=== PATIENT | male | born 1950 | race Caucasian/White ===

== ENCOUNTER → 2016-07-24 | Outpatient (CLI) | payer OTHER ==
[~2016-07-24] MED LIST: DOCU-30 PO; EMPA1TAB5 PO; EXEN2VIA SQ; FERR325T20 PO; INSU100I18 SQ-INSULIN; INSU100I28 SQ-INSULIN; INSU100V8 SQ; LISI-170 PO; LOVA40TA2 PO; METF10002 PO; METF500T PO; MICO14CR TP; ONDA-39 PO; OXYC5SOL8 PO; PIOG15TA9 PO; PIOG30TA4 PO; POLY17PO5 PO; POTA20PA8 PO; [UNRECOGNIZED DRUG - REMARK] SQ
[2016-07-24 11:05] LABS: BLOOD UREA NITROGEN 19 mg/dL (7-18)
[2016-07-24 11:12] LABS: ASPARTATE AMINO TRANSFERASE 13 U/L (15-37)
[2016-07-25 10:06] LABS: CREATININE URINE 47.3 mg/dL (Not Estab.)
== END | disposition home or self-care (01) ==
LOC: LAB 08:45
PROVIDERS: ATTEND Nurse Practitioner
DX: E11.43 Type 2 diabetes mellitus with diabetic autonomic (poly)neuropathy (principal); E13.65 Other specified diabetes mellitus with hyperglycemia; I10 Essential (primary) hypertension; R73.09 Other abnormal glucose
CPT/HCPCS: 36415; 80053; 80061; 82043; 82570; 83036

== ENCOUNTER 2017-03-24 16:20 | Emergency (ER) | payer OTHER ==
[~2017-03-24] VITALS: Ht 190.5 cm; Wt 91.0 kg
[~2017-03-24 16:20] MED LIST changes: +DOCU-131 PO; -DOCU-30 PO; +FERR325T18 PO; -FERR325T20 PO; -ONDA-39 PO; +ONDA4TAB12 PO; +PIOG15TA22 PO; -PIOG15TA9 PO; +POTA20PA25 PO; -POTA20PA8 PO
[2017-03-24] MEDS ORDERED: LIDOCAINE-MPF 2% ,5ML ONE ×2 (16:43→16:50)
[2017-03-24] MEDS ORDERED: ONDANSETRON 2MG/ML, 2ML ONE (16:44)
[2017-03-24] MEDS ORDERED: morphine SULFATE 10 MG/ML, 1ML ONE ×2 (16:44→17:05)
[2017-03-24] MEDS ORDERED: SODIUM CHLORIDE FLUSH 10ML SYR IVF ONE (17:00)
[2017-03-24] MEDS ORDERED: MORPHINE SULFATE 4 MG/ML, 1ML IV PRN (17:00)
[2017-03-24] MEDS ORDERED: LIDOCAINE 2%, 20ML SQ ONE (17:00)
[2017-03-24] MEDS ORDERED: ONDANSETRON 2MG/ML, 2ML IVPush ONE (17:00)
[2017-03-24 19:19] VITALS: BP 119/58
== END 2017-03-24 19:21 | disposition home or self-care (01) ==
LOC: ED 17:34
DX: S52.571A Other intraarticular fracture of lower end of right radius, initial encounter for closed fracture (principal); S52.601A Unspecified fracture of lower end of right ulna, initial encounter for closed fracture; E11.40 Type 2 diabetes mellitus with diabetic neuropathy, unspecified; E11.51 Type 2 diabetes mellitus with diabetic peripheral angiopathy without gangrene; E78.5 Hyperlipidemia, unspecified; W01.0XXA Fall on same level from slipping, tripping and stumbling without subsequent striking against object, initial encounter; Y93.89 Activity, other specified; Y92.89 Other specified places as the place of occurrence of the external cause; Y99.8 Other external cause status
CPT/HCPCS: 73110; 96374; 96375; 99284; J2405

== ENCOUNTER 2017-05-07 16:21 | Inpatient (IN) | payer OTHER ==
[~2017-05-07] VITALS: Ht 193 cm; Wt 92.0 kg
[~2017-05-07 16:21] MED LIST changes: -ASPI-515 PO; -INSU100I11 SC; -INSU200I4 SC
[2017-05-07] MEDS ORDERED: ACETAMINOPHEN 325 MG TABLET PO PRN (19:00)
[2017-05-07] MEDS ORDERED: TEMAZEPAM 15 MG CAPSULE PO PRN (19:00)
[2017-05-07] MEDS ORDERED: DOCUSATE 100 MG CAPSULE PO PRN (19:00)
[2017-05-07] MEDS ORDERED: ONDANSETRON 2MG/ML, 2ML IVPush PRN (19:00)
[2017-05-07] MEDS ORDERED: PLEASE ENTER HEIGHT AND WEIGHT MC SCH ×2 (19:00→19:30)
[2017-05-07] MEDS ORDERED: hydrALAzine 20 MG/ML, 1ML IVPush PRN (19:00)
[2017-05-07] MEDS ORDERED: VANCOMYCIN PER PHARMACY MC PRN (19:30)
[2017-05-07 19:54] LABS: INTERNATIONAL NORMALIZED RATIO 0.97 (0.93-1.1); PROTHROMBIN TIME 10.1 Seconds (9.6-11.5)
[2017-05-07 20:13] VITALS: BP 123/66
[2017-05-07] MEDS ORDERED: ASPI-515 PO (20:20)
[2017-05-07] MEDS ORDERED: EMPA1TAB5 PO (20:20)
[2017-05-07] MEDS ORDERED: PIOG15TA22 PO (20:20)
[2017-05-07] MEDS ORDERED: INSU100I11 SC (20:20)
[2017-05-07] MEDS ORDERED: INSU200I4 SC (20:20)
[2017-05-07] MEDS ORDERED: PHARMACOKINETIC CONSULTATION MC ONE (20:30)
[2017-05-07] MEDS ORDERED: PHARMACOKINETIC MONITORING MC PRN (20:30)
[2017-05-07] MEDS: PIPERACILLIN/TAZO/PMX 3.375GM 50 ML IV SCH (21:56)
[2017-05-07] MEDS: METFORMIN HCL HOMEMEDPO SCH (21:58)
[2017-05-07] MEDS: EMPAGLIFLOZIN HOMEMEDPO SCH (21:58)
[2017-05-07] MEDS ORDERED: INSULIN ASPART 100 UNITS/ML, PEN SQ-INSULIN SCH (22:00)
[2017-05-07] MEDS: INSULIN ASPART 100 UNITS/ML, PEN SQ-INSULIN SCH (22:27)
[2017-05-07] MEDS: VANCOMYCIN 1,800 MG in SODIUM CHLORIDE 0.9% 250 ML IV SCH (22:47)
[2017-05-07] MEDS: LOVASTATIN 40 MG TABLET PO SCH (22:47)
[2017-05-08 03:02] VITALS: BP 117/67
[2017-05-08] MEDS: PIPERACILLIN/TAZO/PMX 3.375GM 50 ML IV SCH ×4 (04:03→21:35)
[2017-05-08 05:33] LABS: BASOPHILS # (AUTO) 0.07 x10^3/uL (0-0.1); BASOPHILS % (AUTO) 1 % (0-1); EOSINOPHILS # (AUTO) 0.32 x10^3/uL (0-0.4); EOSINOPHILS % (AUTO) 3 % (1-7); LYMPHOCYTES # (AUTO) 3.28 x10^3/uL (1-3.4); LYMPHOCYTES % (AUTO) 30 % (22-44); MD NO; MEAN CORPUSCULAR HEMOGLOBIN 30.3 pg (27.5-34.5); MEAN CORPUSCULAR HGB CONC 33.6 g/dL (33.2-36.2); MEAN CORPUSCULAR VOLUME 90.1 fL (81-97); MEAN PLATELET VOLUME 8.6 fL (7.4-10.4); MONOCYTES # (AUTO) 1.35 x10^3/uL (0.2-0.8); MONOCYTES % (AUTO) 13 % (2-9); NEUTROPHILS # (AUTO) 5.82 x10^3/uL (1.8-6.8); NEUTROPHILS % (AUTO) 54 % (42-75); PLATELET COUNT 453 x10^3/uL (130-400); RED BLOOD COUNT 4.63 x10^6/uL (4.38-5.82); RED CELL DISTRIBUTION WIDTH 13.7 % (9.4-14.8)
[2017-05-08 05:40] LABS: ANION GAP 10 mmol/L (5-15); CALCIUM 8.3 mg/dL (8.5-10.1); CHLORIDE 107 mmol/L (98-107); CREATININE 0.96 mg/dL (0.7-1.3)
[2017-05-08] MEDS: INSULIN ASPART 100 UNITS/ML, PEN SQ-INSULIN SCH ×4 (06:23→21:35)
[2017-05-08] MEDS: EMPAGLIFLOZIN HOMEMEDPO SCH (08:12)
[2017-05-08] MEDS: METFORMIN HCL HOMEMEDPO SCH (08:12)
[2017-05-08] MEDS: ASPIRIN 81 MG TABLET EC PO SCH (08:13)
[2017-05-08] MEDS ORDERED: PIOGLITAZONE 15 MG TABLET PO SCH (09:00)
[2017-05-08 10:41] VITALS: BP 102/57
[2017-05-08 14:25] VITALS: BP 110/56
[2017-05-08] MEDS: VANCOMYCIN 1,800 MG in SODIUM CHLORIDE 0.9% 250 ML IV SCH (16:29)
[2017-05-08 20:13] VITALS: BP 109/64
[2017-05-08] MEDS: LOVASTATIN 40 MG TABLET PO SCH (21:35)
[2017-05-09] MEDS: D5%-0.45% NACL 1,000 ML IV SCH ×3 (00:21→15:27)
[2017-05-09 02:12] VITALS: BP 111/78
[2017-05-09] MEDS: PIPERACILLIN/TAZO/PMX 3.375GM 50 ML IV SCH ×4 (03:23→21:08)
[2017-05-09 05:44] LABS: MEAN CORPUSCULAR HEMOGLOBIN 30.4 pg (27.5-34.5); MEAN CORPUSCULAR HGB CONC 33.7 g/dL (33.2-36.2); MEAN CORPUSCULAR VOLUME 90.3 fL (81-97); MEAN PLATELET VOLUME 8.3 fL (7.4-10.4); PLATELET COUNT 445 x10^3/uL (130-400); RED BLOOD COUNT 4.65 x10^6/uL (4.38-5.82); RED CELL DISTRIBUTION WIDTH 13.7 % (9.4-14.8)
[2017-05-09 05:48] LABS: CHLORIDE 106 mmol/L (98-107)
[2017-05-09 05:59] LABS: ANION GAP 12 mmol/L (5-15); CALCIUM 8.4 mg/dL (8.5-10.1); CREATININE 1.02 mg/dL (0.7-1.3)
[2017-05-09 06:13] LABS: BASOPHILS # (AUTO) 0.05 x10^3/uL (0-0.1); BASOPHILS % (AUTO) 1 % (0-1); EOSINOPHILS # (AUTO) 0.29 x10^3/uL (0-0.4); EOSINOPHILS % (AUTO) 3 % (1-7); LYMPHOCYTES # (AUTO) 2.58 x10^3/uL (1-3.4); LYMPHOCYTES % (AUTO) 27 % (22-44); MD SCAN; MONOCYTES # (AUTO) 1.07 x10^3/uL (0.2-0.8); MONOCYTES % (AUTO) 11 % (2-9); NEUTROPHILS # (AUTO) 5.65 x10^3/uL (1.8-6.8); NEUTROPHILS % (AUTO) 59 % (42-75)
[2017-05-09 06:40] VITALS: BP 121/66
[2017-05-09] MEDS: INSULIN ASPART 100 UNITS/ML, PEN SQ-INSULIN SCH ×4 (08:00→21:09)
[2017-05-09] MEDS ORDERED: INSULIN DEGLUDEC 60 UNIT HOMEINJ SCH (09:00)
[2017-05-09] MEDS: ASPIRIN 81 MG TABLET EC PO SCH (09:00)
[2017-05-09] MEDS: VANCOMYCIN 1,800 MG in SODIUM CHLORIDE 0.9% 250 ML IV SCH (10:28)
[2017-05-09] MEDS ORDERED: MIDAZOLAM 1 MG/ML, 2ML ONE (11:42)
[2017-05-09] MEDS ORDERED: FENTANYL PF 100 MCG/2ML ONE (11:42)
[2017-05-09] MEDS ORDERED: LIDOCAINE-MPF 2% ,5ML ONE (11:43)
[2017-05-09] MEDS ORDERED: PROPOFOL 10 MG/ML, 20ML ONE (11:43)
[2017-05-09] MEDS ORDERED: KETOROLAC 30 MG/1 ML ONE (12:12)
[2017-05-09] MEDS ORDERED: ONDANSETRON 2MG/ML, 2ML ONE (12:12)
[2017-05-09 12:20] VITALS: BP 146/82
[2017-05-09] MEDS ORDERED: ONDANSETRON 2MG/ML, 2ML IVPush PRN (12:30)
[2017-05-09] MEDS ORDERED: LABETALOL 5MG/ML, 20ML IV PRN (12:30)
[2017-05-09] MEDS ORDERED: MEPERIDINE/PF 25MG/0.5ML IVPush PRN (12:30)
[2017-05-09] MEDS ORDERED: PROMETHAZINE 25 MG/ML, 1ML IV PRN (12:30)
[2017-05-09] MEDS ORDERED: FENTANYL PF 100 MCG/2ML IV PRN (12:30)
[2017-05-09] MEDS ORDERED: OXYcodone 5 MG/5 ML ORAL.SOL UDC PO PRN (12:30)
[2017-05-09] MEDS ORDERED: ACETAMINOPHEN 325 MG TABLET PO PRN (12:30)
[2017-05-09] MEDS ORDERED: HYDROmorphone 1 MG/ML, 1ML IV PRN (12:30)
[2017-05-09] MEDS ORDERED: hydrALAzine 20 MG/ML, 1ML IV PRN (12:30)
[2017-05-09 20:00] VITALS: BP 101/63
[2017-05-09] MEDS: LOVASTATIN 40 MG TABLET PO SCH (21:09)
[2017-05-09 23:37] VITALS: BP 106/65
[2017-05-10 03:29] VITALS: BP 118/69
[2017-05-10 03:35] LABS: BASOPHILS # (AUTO) 0.07 x10^3/uL (0-0.1); BASOPHILS % (AUTO) 1 % (0-1); EOSINOPHILS % (AUTO) 4 % (1-7); LYMPHOCYTES # (AUTO) 3.26 x10^3/uL (1-3.4); LYMPHOCYTES % (AUTO) 32 % (22-44); MD NO; MEAN CORPUSCULAR HEMOGLOBIN 29.6 pg (27.5-34.5); MEAN CORPUSCULAR HGB CONC 32.7 g/dL (33.2-36.2); MEAN CORPUSCULAR VOLUME 90.6 fL (81-97); MEAN PLATELET VOLUME 8.2 fL (7.4-10.4); MONOCYTES # (AUTO) 0.98 x10^3/uL (0.2-0.8); MONOCYTES % (AUTO) 10 % (2-9); NEUTROPHILS # (AUTO) 5.48 x10^3/uL (1.8-6.8); NEUTROPHILS % (AUTO) 54 % (42-75); PLATELET COUNT 474 x10^3/uL (130-400); RED BLOOD COUNT 4.76 x10^6/uL (4.38-5.82); RED CELL DISTRIBUTION WIDTH 13.7 % (9.4-14.8)
[2017-05-10] MEDS: PIPERACILLIN/TAZO/PMX 3.375GM 50 ML IV SCH ×3 (03:40→15:30)
[2017-05-10 03:43] LABS: ANION GAP 7 mmol/L (5-15); CALCIUM 8.3 mg/dL (8.5-10.1); CHLORIDE 109 mmol/L (98-107); CREATININE 1.01 mg/dL (0.7-1.3)
[2017-05-10 03:45] LABS: VANCOMYCIN,TROUGH 13.7 mcg/mL (5.0-10.0)
[2017-05-10] MEDS: VANCOMYCIN 1,800 MG in SODIUM CHLORIDE 0.9% 250 ML IV SCH (04:46)
[2017-05-10 07:13] VITALS: BP 129/75
[2017-05-10] MEDS: ASPIRIN 81 MG TABLET EC PO SCH (07:55)
[2017-05-10] MEDS: INSULIN ASPART 100 UNITS/ML, PEN SQ-INSULIN SCH ×3 (07:57→16:00)
[2017-05-10] MEDS ORDERED: INSULIN DEGLUDEC 120 UNIT SQ SCH (09:00)
[2017-05-10 14:31] VITALS: BP 101/60
[2017-05-10] MEDS ORDERED: ACET325T14 PO (14:49)
[2017-05-10 15:09] VITALS: BP 121/61
== END 2017-05-10 17:10 | disposition home or self-care (01) | DRG 617 ==
LOC: 4NOR 18:01
PROVIDERS: ADMIT Family Medicine; ATTEND Family Medicine
PROC: 0Y6S0Z0 Detachment at Left 2nd Toe, Complete, Open Approach (ICD-10-PCS; principal; 2017-05-09 16:00)
DX: E11.69 Type 2 diabetes mellitus with other specified complication (principal); M86.172 Other acute osteomyelitis, left ankle and foot; E11.21 Type 2 diabetes mellitus with diabetic nephropathy; E11.40 Type 2 diabetes mellitus with diabetic neuropathy, unspecified; E11.65 Type 2 diabetes mellitus with hyperglycemia; E78.5 Hyperlipidemia, unspecified; Z79.4 Long term (current) use of insulin; Z82.5 Family history of asthma and other chronic lower respiratory diseases; Z83.3 Family history of diabetes mellitus; Z85.820 Personal history of malignant melanoma of skin; Z89.412 Acquired absence of left great toe; Z90.81 Acquired absence of spleen; D72.829 Elevated white blood cell count, unspecified; D47.3 Essential (hemorrhagic) thrombocythemia
CPT/HCPCS: 36415; 80048; 80202; 82962; 83605; 85025; 85610; 85730; 86850; 86900; 87040; 88305; 88311; J1815; J1885; J2250; J2405; J2543; J2704; J3010; J3370; J3490; J7050

== ENCOUNTER → 2017-05-07 | Outpatient (CLI) | payer OTHER ==
[~2017-05-07] MED LIST changes: +ASPI-515 PO; +INSU100I11 SC; +INSU200I4 SC
== END | disposition home or self-care (01) ==
LOC: WOUND 09:53
PROVIDERS: ATTEND Nurse Practitioner Family
DX: E11.621 Type 2 diabetes mellitus with foot ulcer (principal); L97.521 Non-pressure chronic ulcer of other part of left foot limited to breakdown of skin; E11.69 Type 2 diabetes mellitus with other specified complication; M86.172 Other acute osteomyelitis, left ankle and foot; E11.40 Type 2 diabetes mellitus with diabetic neuropathy, unspecified; E78.5 Hyperlipidemia, unspecified; Z89.412 Acquired absence of left great toe; Z72.89 Other problems related to lifestyle
CPT/HCPCS: 99215

== ENCOUNTER → 2017-05-14 | Outpatient (CLI) | payer OTHER ==
[~2017-05-14] MED LIST changes: +ACET325T14 PO; +ASPI-515 PO; +INSU100I11 SC; +INSU200I4 SC
== END | disposition home or self-care (01) ==
LOC: WOUND 09:00
PROVIDERS: ATTEND Nurse Practitioner Family
DX: E11.621 Type 2 diabetes mellitus with foot ulcer (principal); L97.524 Non-pressure chronic ulcer of other part of left foot with necrosis of bone; E11.40 Type 2 diabetes mellitus with diabetic neuropathy, unspecified; E11.69 Type 2 diabetes mellitus with other specified complication; M86.172 Other acute osteomyelitis, left ankle and foot; E78.5 Hyperlipidemia, unspecified; E11.65 Type 2 diabetes mellitus with hyperglycemia; E11.51 Type 2 diabetes mellitus with diabetic peripheral angiopathy without gangrene; Z72.89 Other problems related to lifestyle; Z89.412 Acquired absence of left great toe; Z79.4 Long term (current) use of insulin; Z85.828 Personal history of other malignant neoplasm of skin
CPT/HCPCS: 99214

== ENCOUNTER → 2017-05-28 | Outpatient (CLI) | payer OTHER | END | disposition home or self-care (01) | LOC: WOUND 09:04 | PROVIDERS: ATTEND Nurse Practitioner Family | DX: E11.621 Type 2 diabetes mellitus with foot ulcer (principal); L97.521 Non-pressure chronic ulcer of other part of left foot limited to breakdown of skin; E11.69 Type 2 diabetes mellitus with other specified complication; M86.172 Other acute osteomyelitis, left ankle and foot; E11.40 Type 2 diabetes mellitus with diabetic neuropathy, unspecified; E11.51 Type 2 diabetes mellitus with diabetic peripheral angiopathy without gangrene; E11.21 Type 2 diabetes mellitus with diabetic nephropathy; E78.5 Hyperlipidemia, unspecified; Z85.828 Personal history of other malignant neoplasm of skin; Z79.4 Long term (current) use of insulin; Z72.89 Other problems related to lifestyle; Z90.81 Acquired absence of spleen; Z89.412 Acquired absence of left great toe | CPT/HCPCS: 11042 ==

== ENCOUNTER → 2017-06-04 | Outpatient (CLI) | payer OTHER | END | disposition home or self-care (01) | LOC: WOUND 08:00 | PROVIDERS: ATTEND Nurse Practitioner Family | DX: E11.621 Type 2 diabetes mellitus with foot ulcer (principal); L97.521 Non-pressure chronic ulcer of other part of left foot limited to breakdown of skin; E11.69 Type 2 diabetes mellitus with other specified complication; M86.172 Other acute osteomyelitis, left ankle and foot; E11.40 Type 2 diabetes mellitus with diabetic neuropathy, unspecified; E11.21 Type 2 diabetes mellitus with diabetic nephropathy; E11.51 Type 2 diabetes mellitus with diabetic peripheral angiopathy without gangrene; E78.5 Hyperlipidemia, unspecified; Z85.828 Personal history of other malignant neoplasm of skin; Z89.412 Acquired absence of left great toe; Z90.81 Acquired absence of spleen; Z72.89 Other problems related to lifestyle; Z79.4 Long term (current) use of insulin | CPT/HCPCS: 11042 ==

== ENCOUNTER → 2017-06-11 | Outpatient (CLI) | payer OTHER | END | disposition home or self-care (01) | LOC: WOUND 14:56 | PROVIDERS: ATTEND Nurse Practitioner Family | DX: E11.621 Type 2 diabetes mellitus with foot ulcer (principal); L97.521 Non-pressure chronic ulcer of other part of left foot limited to breakdown of skin; E11.40 Type 2 diabetes mellitus with diabetic neuropathy, unspecified; E78.5 Hyperlipidemia, unspecified; E11.69 Type 2 diabetes mellitus with other specified complication; M86.172 Other acute osteomyelitis, left ankle and foot; E11.21 Type 2 diabetes mellitus with diabetic nephropathy; E11.51 Type 2 diabetes mellitus with diabetic peripheral angiopathy without gangrene; Z85.828 Personal history of other malignant neoplasm of skin; Z89.412 Acquired absence of left great toe; Z90.81 Acquired absence of spleen; Z79.4 Long term (current) use of insulin | CPT/HCPCS: 97597 ==

== ENCOUNTER → 2017-06-18 | Outpatient (CLI) | payer OTHER | END | disposition home or self-care (01) | LOC: WOUND 14:30 | PROVIDERS: ATTEND Nurse Practitioner Family | DX: E11.621 Type 2 diabetes mellitus with foot ulcer (principal); L97.521 Non-pressure chronic ulcer of other part of left foot limited to breakdown of skin; E11.69 Type 2 diabetes mellitus with other specified complication; M86.172 Other acute osteomyelitis, left ankle and foot; E11.40 Type 2 diabetes mellitus with diabetic neuropathy, unspecified; E78.5 Hyperlipidemia, unspecified; E11.21 Type 2 diabetes mellitus with diabetic nephropathy; E11.51 Type 2 diabetes mellitus with diabetic peripheral angiopathy without gangrene; Z85.828 Personal history of other malignant neoplasm of skin; Z79.4 Long term (current) use of insulin; Z72.89 Other problems related to lifestyle; Z89.412 Acquired absence of left great toe; Z90.81 Acquired absence of spleen | CPT/HCPCS: 97597 ==

== ENCOUNTER → 2017-06-28 | Outpatient (CLI) | payer OTHER | END | disposition home or self-care (01) | LOC: WOUND 08:09 | PROVIDERS: ATTEND Family Medicine | DX: T87.89 Other complications of amputation stump (principal); E11.621 Type 2 diabetes mellitus with foot ulcer; L97.521 Non-pressure chronic ulcer of other part of left foot limited to breakdown of skin; E11.69 Type 2 diabetes mellitus with other specified complication; M86.172 Other acute osteomyelitis, left ankle and foot; E11.40 Type 2 diabetes mellitus with diabetic neuropathy, unspecified; E78.5 Hyperlipidemia, unspecified; Y83.5 Amputation of limb(s) as the cause of abnormal reaction of the patient, or of later complication, without mention of misadventure at the time of the procedure | CPT/HCPCS: 97597 ==

== ENCOUNTER → 2017-07-04 | Outpatient (CLI) | payer OTHER | END | disposition home or self-care (01) | LOC: WOUND 08:15 | PROVIDERS: ATTEND Podiatrist Foot & Ankle Surgery | DX: E11.621 Type 2 diabetes mellitus with foot ulcer (principal); L97.522 Non-pressure chronic ulcer of other part of left foot with fat layer exposed; E11.69 Type 2 diabetes mellitus with other specified complication; M86.172 Other acute osteomyelitis, left ankle and foot; E11.40 Type 2 diabetes mellitus with diabetic neuropathy, unspecified; E78.5 Hyperlipidemia, unspecified; Z89.412 Acquired absence of left great toe; E11.51 Type 2 diabetes mellitus with diabetic peripheral angiopathy without gangrene; E11.65 Type 2 diabetes mellitus with hyperglycemia; Z79.4 Long term (current) use of insulin; Z85.828 Personal history of other malignant neoplasm of skin | CPT/HCPCS: 11042 ==

== ENCOUNTER → 2017-07-11 | Outpatient (CLI) | payer OTHER | END | disposition home or self-care (01) | LOC: WOUND 07:49 | PROVIDERS: ATTEND Podiatrist Foot & Ankle Surgery | DX: E11.621 Type 2 diabetes mellitus with foot ulcer (principal); L97.522 Non-pressure chronic ulcer of other part of left foot with fat layer exposed; E11.69 Type 2 diabetes mellitus with other specified complication; M86.172 Other acute osteomyelitis, left ankle and foot; E11.40 Type 2 diabetes mellitus with diabetic neuropathy, unspecified; E78.5 Hyperlipidemia, unspecified; E11.51 Type 2 diabetes mellitus with diabetic peripheral angiopathy without gangrene; E11.21 Type 2 diabetes mellitus with diabetic nephropathy; Z89.412 Acquired absence of left great toe; Z85.828 Personal history of other malignant neoplasm of skin; Z79.4 Long term (current) use of insulin; Z72.89 Other problems related to lifestyle | CPT/HCPCS: 11042 ==

== ENCOUNTER → 2017-07-18 | Outpatient (CLI) | payer OTHER | END | disposition home or self-care (01) | LOC: WOUND 08:11 | PROVIDERS: ATTEND Podiatrist Foot & Ankle Surgery | DX: E11.621 Type 2 diabetes mellitus with foot ulcer (principal); L97.522 Non-pressure chronic ulcer of other part of left foot with fat layer exposed; E11.40 Type 2 diabetes mellitus with diabetic neuropathy, unspecified; E11.69 Type 2 diabetes mellitus with other specified complication; M86.172 Other acute osteomyelitis, left ankle and foot; E78.5 Hyperlipidemia, unspecified; E11.21 Type 2 diabetes mellitus with diabetic nephropathy; E11.51 Type 2 diabetes mellitus with diabetic peripheral angiopathy without gangrene; Z85.828 Personal history of other malignant neoplasm of skin; Z89.412 Acquired absence of left great toe; Z79.4 Long term (current) use of insulin; Z72.89 Other problems related to lifestyle | CPT/HCPCS: 11042 ==

== ENCOUNTER → 2017-08-01 | Outpatient (CLI) | payer OTHER | END | disposition home or self-care (01) | LOC: WOUND 08:34 | PROVIDERS: ATTEND Podiatrist Foot & Ankle Surgery | DX: E11.621 Type 2 diabetes mellitus with foot ulcer (principal); L97.522 Non-pressure chronic ulcer of other part of left foot with fat layer exposed; E11.69 Type 2 diabetes mellitus with other specified complication; M86.172 Other acute osteomyelitis, left ankle and foot; E78.5 Hyperlipidemia, unspecified; E11.40 Type 2 diabetes mellitus with diabetic neuropathy, unspecified; E11.21 Type 2 diabetes mellitus with diabetic nephropathy; E11.51 Type 2 diabetes mellitus with diabetic peripheral angiopathy without gangrene; Z85.828 Personal history of other malignant neoplasm of skin; Z89.412 Acquired absence of left great toe; Z79.4 Long term (current) use of insulin; Z72.89 Other problems related to lifestyle | CPT/HCPCS: 15275; Q4133 ==

== ENCOUNTER → 2017-08-08 | Outpatient (CLI) | payer OTHER | END | disposition home or self-care (01) | LOC: WOUND 08:15 | PROVIDERS: ATTEND Podiatrist Foot & Ankle Surgery | DX: E11.621 Type 2 diabetes mellitus with foot ulcer (principal); L97.522 Non-pressure chronic ulcer of other part of left foot with fat layer exposed; E11.40 Type 2 diabetes mellitus with diabetic neuropathy, unspecified; E11.21 Type 2 diabetes mellitus with diabetic nephropathy; E78.5 Hyperlipidemia, unspecified; E11.69 Type 2 diabetes mellitus with other specified complication; M86.172 Other acute osteomyelitis, left ankle and foot; E11.51 Type 2 diabetes mellitus with diabetic peripheral angiopathy without gangrene; Z85.828 Personal history of other malignant neoplasm of skin; Z89.412 Acquired absence of left great toe; Z79.4 Long term (current) use of insulin; Z72.89 Other problems related to lifestyle | CPT/HCPCS: 15275; Q4133 ==

== ENCOUNTER → 2017-08-15 | Outpatient (CLI) | payer OTHER | END | disposition home or self-care (01) | LOC: WOUND 08:20 | PROVIDERS: ATTEND Podiatrist Foot & Ankle Surgery | DX: E11.621 Type 2 diabetes mellitus with foot ulcer (principal); L97.522 Non-pressure chronic ulcer of other part of left foot with fat layer exposed; E78.5 Hyperlipidemia, unspecified; E11.69 Type 2 diabetes mellitus with other specified complication; M86.172 Other acute osteomyelitis, left ankle and foot; E11.40 Type 2 diabetes mellitus with diabetic neuropathy, unspecified; E11.51 Type 2 diabetes mellitus with diabetic peripheral angiopathy without gangrene; E11.65 Type 2 diabetes mellitus with hyperglycemia; Z89.412 Acquired absence of left great toe; Z79.4 Long term (current) use of insulin | CPT/HCPCS: 15275; Q4133 ==

== ENCOUNTER → 2017-08-22 | Outpatient (CLI) | payer OTHER | END | disposition home or self-care (01) | LOC: WOUND 08:29 | PROVIDERS: ATTEND Podiatrist Foot & Ankle Surgery | DX: E11.621 Type 2 diabetes mellitus with foot ulcer (principal); L97.522 Non-pressure chronic ulcer of other part of left foot with fat layer exposed; E11.69 Type 2 diabetes mellitus with other specified complication; M86.172 Other acute osteomyelitis, left ankle and foot; E78.5 Hyperlipidemia, unspecified; E11.40 Type 2 diabetes mellitus with diabetic neuropathy, unspecified; E11.51 Type 2 diabetes mellitus with diabetic peripheral angiopathy without gangrene; E11.21 Type 2 diabetes mellitus with diabetic nephropathy; Z85.828 Personal history of other malignant neoplasm of skin; Z72.89 Other problems related to lifestyle; Z89.412 Acquired absence of left great toe; Z79.4 Long term (current) use of insulin | CPT/HCPCS: 15275; Q4133 ==

== ENCOUNTER → 2017-09-05 | Outpatient (CLI) | payer OTHER | END | disposition home or self-care (01) | LOC: WOUND 08:26 | PROVIDERS: ATTEND Podiatrist Foot & Ankle Surgery | DX: E11.621 Type 2 diabetes mellitus with foot ulcer (principal); L97.522 Non-pressure chronic ulcer of other part of left foot with fat layer exposed; E78.5 Hyperlipidemia, unspecified; E11.40 Type 2 diabetes mellitus with diabetic neuropathy, unspecified; E11.69 Type 2 diabetes mellitus with other specified complication; M86.172 Other acute osteomyelitis, left ankle and foot; E11.21 Type 2 diabetes mellitus with diabetic nephropathy; E11.51 Type 2 diabetes mellitus with diabetic peripheral angiopathy without gangrene; Z85.828 Personal history of other malignant neoplasm of skin; Z89.412 Acquired absence of left great toe; Z79.4 Long term (current) use of insulin | CPT/HCPCS: 15275; Q4133 ==

== ENCOUNTER → 2017-09-12 | Outpatient (CLI) | payer OTHER | END | disposition home or self-care (01) | LOC: WOUND 08:22 | PROVIDERS: ATTEND Podiatrist Foot & Ankle Surgery | DX: E11.621 Type 2 diabetes mellitus with foot ulcer (principal); L97.522 Non-pressure chronic ulcer of other part of left foot with fat layer exposed; E11.40 Type 2 diabetes mellitus with diabetic neuropathy, unspecified; E11.21 Type 2 diabetes mellitus with diabetic nephropathy; E11.51 Type 2 diabetes mellitus with diabetic peripheral angiopathy without gangrene; E11.69 Type 2 diabetes mellitus with other specified complication; M86.172 Other acute osteomyelitis, left ankle and foot; E78.5 Hyperlipidemia, unspecified; Z85.828 Personal history of other malignant neoplasm of skin; Z89.412 Acquired absence of left great toe; Z79.4 Long term (current) use of insulin | CPT/HCPCS: 15275; Q4133 ==

== ENCOUNTER → 2017-09-19 | Outpatient (CLI) | payer OTHER | END | disposition home or self-care (01) | LOC: WOUND 08:24 | PROVIDERS: ATTEND Podiatrist Foot & Ankle Surgery | DX: E11.621 Type 2 diabetes mellitus with foot ulcer (principal); L97.522 Non-pressure chronic ulcer of other part of left foot with fat layer exposed; E11.69 Type 2 diabetes mellitus with other specified complication; M86.172 Other acute osteomyelitis, left ankle and foot; E11.40 Type 2 diabetes mellitus with diabetic neuropathy, unspecified; E78.5 Hyperlipidemia, unspecified; E11.21 Type 2 diabetes mellitus with diabetic nephropathy; E11.51 Type 2 diabetes mellitus with diabetic peripheral angiopathy without gangrene; Z85.828 Personal history of other malignant neoplasm of skin; Z89.412 Acquired absence of left great toe; Z79.4 Long term (current) use of insulin | CPT/HCPCS: 97597 ==

== ENCOUNTER → 2017-10-10 | Outpatient (CLI) | payer OTHER | END | disposition home or self-care (01) | LOC: WOUND 08:30 | PROVIDERS: ATTEND Podiatrist Foot & Ankle Surgery | DX: E11.621 Type 2 diabetes mellitus with foot ulcer (principal); L97.528 Non-pressure chronic ulcer of other part of left foot with other specified severity; E11.69 Type 2 diabetes mellitus with other specified complication; M86.172 Other acute osteomyelitis, left ankle and foot; E11.40 Type 2 diabetes mellitus with diabetic neuropathy, unspecified; E78.5 Hyperlipidemia, unspecified; E11.21 Type 2 diabetes mellitus with diabetic nephropathy; E11.51 Type 2 diabetes mellitus with diabetic peripheral angiopathy without gangrene; Z85.828 Personal history of other malignant neoplasm of skin; Z89.412 Acquired absence of left great toe; Z79.4 Long term (current) use of insulin; Z89.422 Acquired absence of other left toe(s) | CPT/HCPCS: 99214 ==

== ENCOUNTER 2019-06-22 13:24 | Inpatient (IN) | payer OTHER, MEDICARE ==
[~2019-06-22] VITALS: Ht 190.5 cm; Wt 96.0 kg
[~2019-06-22 13:24] MED LIST changes: +ONDA-89 PO; -ONDA4TAB12 PO; -PIOG30TA4 PO; +PIOG30TA68 PO
[2019-06-22 14:36] LABS: BASOPHILS # (AUTO) 0.01 x10^3/uL (0-0.1); BASOPHILS % (AUTO) 0 % (0-1); EOSINOPHILS % (AUTO) 1 % (1-7); LYMPHOCYTES # (AUTO) 1.85 x10^3/uL (1-3.4); LYMPHOCYTES % (AUTO) 12 % (22-44); MD NO; MEAN CORPUSCULAR HEMOGLOBIN 27.5 pg (27.5-34.5); MEAN CORPUSCULAR HGB CONC 32.2 g/dL (33.2-36.2); MEAN CORPUSCULAR VOLUME 85.2 fL (81-97); MEAN PLATELET VOLUME 8.6 fL (7.4-10.4); MONOCYTES # (AUTO) 0.76 x10^3/uL (0.2-0.8); MONOCYTES % (AUTO) 5 % (2-9); NEUTROPHILS # (AUTO) 12.38 x10^3/uL (1.8-6.8); NEUTROPHILS % (AUTO) 82 % (42-75); PLATELET COUNT 477 x10^3/uL (130-400); RED BLOOD COUNT 5.74 x10^6/uL (4.38-5.82); RED CELL DISTRIBUTION WIDTH 16.2 % (9.4-14.8)
[2019-06-22 14:44] LABS: CHLORIDE 111 mmol/L (98-107)
[2019-06-22 15:06] LABS: ALANINE AMINOTRANSFERASE 14 U/L (12-78); ALBUMIN 2.4 g/dL (3.4-5.0); ANION GAP 26 mmol/L (5-15); CALCIUM 10.1 mg/dL (8.5-10.1); CREATININE 1.37 mg/dL (0.7-1.3)
[2019-06-22 15:08] LABS: ALKALINE PHOSPHATASE 99 U/L (45-117); BILIRUBIN,TOTAL 0.5 mg/dL (0.2-1.0); TOTAL PROTEIN 8.5 g/dL (6.4-8.2)
[2019-06-22] MEDS ORDERED: SODIUM CHLORIDE 0.9% 1,000 ML IV ONE (15:15)
[2019-06-22] MEDS ORDERED: REGULAR INSULIN 100 UNITS in SODIUM CHLORIDE 0.9% 99 ML IV PRN (15:19)
[2019-06-22 15:24] LABS: ACETONE, SERUM Large (80mg/dL) (Negative)
[2019-06-22] MEDS ORDERED: BISACODYL 10 MG SUPP PR PRN (15:30)
[2019-06-22] MEDS ORDERED: DOCUSATE 100 MG CAPSULE PO PRN (15:30)
[2019-06-22] MEDS ORDERED: ONDANSETRON 2MG/ML, 2ML IVPush ONE (15:30)
[2019-06-22] MEDS ORDERED: SODIUM CHLORIDE 0.9% 1,000ML IVBOLUS ONE ×2 (15:30)
[2019-06-22] MEDS ORDERED: SODIUM CHLORIDE FLUSH 10ML SYR IVF ONE (15:30)
[2019-06-22] MEDS ORDERED: ONDANSETRON 2MG/ML, 2ML IV PRN (15:30)
[2019-06-22 15:53] LABS: FIO2 ROOM AIR %
[2019-06-22] MEDS ORDERED: OMNIPAQUE 350 MG/ML, 100ML BOTTLE ONE (16:33)
[2019-06-22 17:08] LABS: MICROSCOPIC NOT IND
[2019-06-22 17:11] LABS: CULTURE INDICATED? NO
[2019-06-22] MEDS: D5%-0.45NACL+KCL 20MEQ 1,000 ML IV SCH ×2 (17:57→20:46)
[2019-06-22] MEDS: SODIUM CHLORIDE 0.9% 1,000 ML IV SCH ×2 (17:58→20:19)
--- NOTE | 2019-06-22 17:59 | NUR ---
LATE ENTRY: PT TO ED WITH N/V/D X10 DAYS, CHILDREN FOUND PT AND BROUGHT HIM TO ED. CRITICAL LABS REPORTED TO . PT TO BE ADMITTED 1701: BILATE 20G IV'S STARTED, 2L NS BOLUES AND INSULIN GTT STARTED @1724 FOR BS 303. PT TO ICU
--- NOTE | 2019-06-22 18:01 | NUR ---
REPORT TO CHANTAL HUBER, PT TAKEN TO ICU 2 WITH TECH ON MONITOR.
[2019-06-22 18:34] LABS: MICROSCOPIC AUTO
[2019-06-22 20:02] LABS: ANION GAP 21 mmol/L (5-15); CALCIUM 9.3 mg/dL (8.5-10.1); CHLORIDE 119 mmol/L (98-107); CREATININE 1.01 mg/dL (0.7-1.3)
[2019-06-22] MEDS: ENOXAPARIN 40 MG/0.4 ML SQ SCH (20:50)
[2019-06-22] MEDS: LOVASTATIN 40 MG TABLET PO SCH (21:03)
[2019-06-23 00:09] LABS: ANION GAP 19 mmol/L (5-15); CALCIUM 9.3 mg/dL (8.5-10.1); CHLORIDE 121 mmol/L (98-107); CREATININE 0.92 mg/dL (0.7-1.3)
[2019-06-23 03:45] LABS: ANION GAP 16 mmol/L (5-15); CALCIUM 8.8 mg/dL (8.5-10.1); CHLORIDE 123 mmol/L (98-107); CREATININE 0.88 mg/dL (0.7-1.3)
[2019-06-23] MEDS: D5%-0.45NACL+KCL 20MEQ 1,000 ML IV SCH ×2 (05:15→14:37)
[2019-06-23 07:49] LABS: ANION GAP 15 mmol/L (5-15); CHLORIDE 122 mmol/L (98-107); CREATININE 0.98 mg/dL (0.7-1.3)
[2019-06-23] MEDS ORDERED: ASPIRIN 81 MG TABLET EC PO SCH (09:00)
[2019-06-23] MEDS: FAMOTIDINE 20 MG TABLET PO SCH (10:39)
[2019-06-23] MEDS ORDERED: PHARMACOKINETIC MONITORING MC PRN (11:30)
[2019-06-23] MEDS ORDERED: PHARMACOKINETIC CONSULTATION MC ONE (11:30)
[2019-06-23] MEDS ORDERED: POTASSIUM CHLORIDE 20 MEQ TAB.ER.PRT PO ONE (11:30)
[2019-06-23] MEDS ORDERED: VANCOMYCIN PER PHARMACY MC PRN (11:30)
[2019-06-23] MEDS: VANCOMYCIN 1,600 MG in SODIUM CHLORIDE 0.9% 250 ML IV SCH (12:29)
[2019-06-23 12:42] LABS: ANION GAP 11 mmol/L (5-15); CALCIUM 8.6 mg/dL (8.5-10.1); CHLORIDE 121 mmol/L (98-107); CREATININE 0.85 mg/dL (0.7-1.3)
[2019-06-23 15:39] LABS: ANION GAP 9 mmol/L (5-15); CHLORIDE 119 mmol/L (98-107); CREATININE 0.89 mg/dL (0.7-1.3)
[2019-06-23] MEDS ORDERED: INSULIN LISPRO 100 UNITS/ML, PEN ONE (16:27)
[2019-06-23] MEDS ORDERED: INSULIN GLARGINE 100 UNITS/ML, PEN SQ-INSULIN ONE (16:30)
[2019-06-23] MEDS ORDERED: DEXTROSE 4 GM TAB.CHEW PO PRN (16:30)
[2019-06-23] MEDS ORDERED: DEXTROSE 50%, 50ML SYRINGE IVPush PRN (16:30)
[2019-06-23] MEDS ORDERED: GLUCAGON 1 MG IM PRN (16:30)
[2019-06-23] MEDS: PIPERACILLIN/TAZO/PMX 3.375GM 50 ML IV SCH ×2 (16:36→21:10)
[2019-06-23] MEDS: SODIUM CHLORIDE 0.9% 1,000 ML IV SCH (18:25)
[2019-06-23 20:00] VITALS: BP 109/61
[2019-06-23] MEDS: ENOXAPARIN 40 MG/0.4 ML SQ SCH (20:38)
[2019-06-23] MEDS: INSULIN GLARGINE 100 UNITS/ML, PEN SQ-INSULIN SCH (20:39)
[2019-06-23] MEDS: SODIUM CHLORIDE FLUSH 10ML SYR IVF SCH (20:39)
[2019-06-23] MEDS: INSULIN LISPRO 100 UNITS/ML, PEN SQ-INSULIN SCH (20:44)
[2019-06-23] MEDS: LOVASTATIN 40 MG TABLET PO SCH (21:10)
[2019-06-24] MEDS ORDERED: ETOMIDATE 40 MG/20 ML ONE
[2019-06-24] MEDS: VANCOMYCIN 1,600 MG in SODIUM CHLORIDE 0.9% 250 ML IV SCH ×3 (00:46→23:54)
[2019-06-24 00:48] VITALS: BP 105/58
[2019-06-24] MEDS: PIPERACILLIN/TAZO/PMX 3.375GM 50 ML IV SCH ×4 (04:08→21:59)
[2019-06-24 04:15] LABS: MEAN CORPUSCULAR HEMOGLOBIN 27.4 pg (27.5-34.5); MEAN CORPUSCULAR HGB CONC 32.5 g/dL (33.2-36.2); MEAN CORPUSCULAR VOLUME 84.4 fL (81-97); MEAN PLATELET VOLUME 8.4 fL (7.4-10.4); PLATELET COUNT 383 x10^3/uL (130-400); RED CELL DISTRIBUTION WIDTH 15.5 % (9.4-14.8)
[2019-06-24 04:32] LABS: MD YES
[2019-06-24 04:36] LABS: ANISOCYTOSIS 1+; BAND#(MANUAL) 0.14 x10^3/uL; BANDS%(MANUAL) 1 % (0-7); LYMPH#(MANUAL) 1.81 x10^3/uL (1-3.4); LYMPHS% (MANUAL) 13 % (22-44); MONOS#(MANUAL) 0.83 x10^3/uL (0.3-2.7); MONOS% (MANUAL) 6 % (2-9); SEG#(MANUAL) 11.12 x10^3/uL (1.8-6.8); SEGS% (MANUAL) 80 % (42-75)
[2019-06-24 04:37] LABS: <PLATELET ESTIMATE> ADEQUATE; <PLT MORPHOLOGY> NORMAL PLT MORPH; ALANINE AMINOTRANSFERASE 14 U/L (12-78); ALBUMIN 1.8 g/dL (3.4-5.0); ANION GAP 11 mmol/L (5-15); CALCIUM 8.7 mg/dL (8.5-10.1); CHLORIDE 117 mmol/L (98-107); CREATININE 0.77 mg/dL (0.7-1.3)
[2019-06-24 04:39] LABS: ALKALINE PHOSPHATASE 70 U/L (45-117); BILIRUBIN,TOTAL 0.5 mg/dL (0.2-1.0); TOTAL PROTEIN 6.2 g/dL (6.4-8.2)
[2019-06-24] MEDS: INSULIN LISPRO 100 UNITS/ML, PEN SQ-INSULIN SCH ×3 (07:00→16:23)
[2019-06-24] MEDS: SODIUM CHLORIDE 0.9% 1,000 ML IV SCH ×2 (08:36→16:24)
[2019-06-24] MEDS: INSULIN GLARGINE 100 UNITS/ML, PEN SQ-INSULIN SCH (08:37)
[2019-06-24] MEDS: FAMOTIDINE 20 MG TABLET PO SCH (08:37)
[2019-06-24 08:38] VITALS: BP 99/54
[2019-06-24] MEDS: SODIUM CHLORIDE FLUSH 10ML SYR IVF SCH ×2 (08:38→22:00)
[2019-06-24] MEDS ORDERED: FAMOTIDINE 20 MG TABLET PO SCH (09:00)
[2019-06-24] MEDS ORDERED: POTASSIUM CHLORIDE 40 MEQ in SODIUM CHLORIDE 0.9% 500 ML IV ONE (11:00)
[2019-06-24 11:16] LABS: MEAN CORPUSCULAR HEMOGLOBIN 27.4 pg (27.5-34.5); MEAN CORPUSCULAR HGB CONC 32.4 g/dL (33.2-36.2); MEAN CORPUSCULAR VOLUME 84.7 fL (81-97); MEAN PLATELET VOLUME 8.1 fL (7.4-10.4); PLATELET COUNT 343 x10^3/uL (130-400); RED BLOOD COUNT 4.71 x10^6/uL (4.38-5.82)
[2019-06-24] MEDS ORDERED: PROPOFOL 100 ML IV ONE (11:20)
[2019-06-24 11:24] LABS: ALBUMIN 1.7 g/dL (3.4-5.0); ANION GAP 11 mmol/L (5-15); CALCIUM 8.4 mg/dL (8.5-10.1); CHLORIDE 116 mmol/L (98-107)
[2019-06-24 11:26] LABS: INTERNATIONAL NORMALIZED RATIO 1.07 (0.93-1.1); PROTHROMBIN TIME 11.3 Seconds (9.6-11.5)
[2019-06-24] MEDS ORDERED: MAGNESIUM SULFATE 8 MEQ/2 ML, 2ML ONE (11:26)
[2019-06-24] MEDS ORDERED: MIDAZOLAM 1 MG/ML, 5ML ONE (11:26)
[2019-06-24] MEDS ORDERED: EPINEPHRINE 1 MG/ML, 1ML ONE (11:26)
[2019-06-24] MEDS ORDERED: SUCCINYLCHOLINE 20 MG/ML, 10ML ONE (11:26)
[2019-06-24] MEDS ORDERED: CODE BLUE RESPONSE XX ONE (11:26)
[2019-06-24] MEDS ORDERED: SODIUM BICARB 8.4%, 50ML SYRINGE ONE (11:26)
[2019-06-24] MEDS ORDERED: EPINEPHRINE SYRINGE 0.1 MG/ML, 10ML ONE (11:26)
[2019-06-24] MEDS ORDERED: DEXTROSE 5%, 250ML ONE (11:26)
[2019-06-24] MEDS ORDERED: AMIODARONE 50 MG/ML, 3ML ONE ×2 (11:26)
[2019-06-24 11:27] LABS: ALANINE AMINOTRANSFERASE 33 U/L (12-78); CREATININE 0.88 mg/dL (0.7-1.3)
[2019-06-24 11:31] LABS: MD YES
[2019-06-24 11:32] LABS: ALKALINE PHOSPHATASE 75 U/L (45-117); BILIRUBIN,TOTAL 0.6 mg/dL (0.2-1.0); TOTAL PROTEIN 5.9 g/dL (6.4-8.2)
[2019-06-24 11:35] LABS: <PLATELET ESTIMATE> ADEQUATE; <PLT MORPHOLOGY> NORMAL PLT MORPH; BAND#(MANUAL) 0.51 x10^3/uL; BANDS%(MANUAL) 3 % (0-7); LYMPH#(MANUAL) 6.25 x10^3/uL (1-3.4); LYMPHS% (MANUAL) 37 % (22-44); MONOS#(MANUAL) 0.68 x10^3/uL (0.3-2.7); MONOS% (MANUAL) 4 % (2-9); SEG#(MANUAL) 9.46 x10^3/uL (1.8-6.8); SEGS% (MANUAL) 56 % (42-75)
[2019-06-24 11:36] LABS: ACANTHOCYTES 1+; ANISOCYTOSIS 1+
[2019-06-24] MEDS ORDERED: EPINEPHRINE 10 MG in SODIUM CHLORIDE 0.9% 240 ML IV PRN (13:00)
[2019-06-24] MEDS ORDERED: LACTATED RINGERS 1,000 ML IVBOLUS ONE (13:00)
[2019-06-24] MEDS ORDERED: POTASSIUM PHOSPHATE 44 MEQ in SODIUM CHLORIDE 0.9% 500 ML IV ONE (15:00)
[2019-06-24] MEDS: PROPOFOL 100 ML IV PRN ×3 (15:40→21:59)
[2019-06-24] MEDS ORDERED: BISACODYL 10 MG SUPP PR PRN (16:00)
[2019-06-24] MEDS ORDERED: GLUCAGON 1 MG IM PRN (16:00)
[2019-06-24] MEDS ORDERED: LIDOCAINE-MPF 1%, 2ML ENDO PRN (16:00)
[2019-06-24] MEDS ORDERED: DEXTROSE 4 GM TAB.CHEW PO PRN (16:00)
[2019-06-24] MEDS ORDERED: PHARMACY MAY ADJ FOR RENAL FX MC SCH (16:00)
[2019-06-24] MEDS ORDERED: LACTULOSE 20 GM/30 ML UDC NG PRN (16:00)
[2019-06-24] MEDS ORDERED: SENNA 176 MG/5 ML ORAL SOL NG PRN (16:00)
[2019-06-24] MEDS ORDERED: SENNA/DOCUSATE TABLET NG PRN (16:00)
[2019-06-24] MEDS: FENTANYL PF 100 MCG/2ML IVPush PRN (16:19)
[2019-06-24] MEDS ORDERED: MIDAZOLAM HCL 50 MG in SODIUM CHLORIDE 0.9% 40 ML IV PRN (16:30)
[2019-06-24 16:35] LABS: FIO2 50 %
[2019-06-24 16:41] LABS: TRIGLYCERIDES 110 mg/dL (50-200)
[2019-06-24 16:42] LABS: ALANINE AMINOTRANSFERASE 46 U/L (12-78); ALBUMIN 1.8 g/dL (3.4-5.0); ANION GAP 25 mmol/L (5-15); CALCIUM 8.4 mg/dL (8.5-10.1); CHLORIDE 113 mmol/L (98-107); CREATININE 1.23 mg/dL (0.7-1.3)
[2019-06-24 16:45] LABS: ALKALINE PHOSPHATASE 107 U/L (45-117); BILIRUBIN,TOTAL 1.1 mg/dL (0.2-1.0)
[2019-06-24] MEDS ORDERED: SODIUM BICARB 8.4%, 50ML SYRINGE IVPush ONE (17:00)
[2019-06-24] MEDS ORDERED: KSCALE TO 4.0 IV SCH (17:00)
[2019-06-24] MEDS ORDERED: SODIUM BICARBONATE 8.4% 150 MEQ in STERILE WATER 1,000 ML IV SCH (17:00)
[2019-06-24] MEDS: SODIUM BICARBONATE IV SCH (17:10)
[2019-06-24] MEDS: STERILE WATER IV SCH (17:10)
[2019-06-24] MEDS ORDERED: AMIODARONE 150 MG in DEXTROSE 5% 100 ML IV ONE (17:30)
[2019-06-24] MEDS ORDERED: REGULAR INSULIN 100 UNITS in SODIUM CHLORIDE 0.9% 99 ML IV PRN (17:30)
[2019-06-24] MEDS ORDERED: INSULIN REGULAR 100 UNITS/ML, 3ML VIAL IV ONE (17:30)
[2019-06-24] MEDS: AMIODARONE 450 MG in DEXTROSE 5% 241 ML IV PRN ×2 (17:35→23:54)
[2019-06-24] MEDS: EPINEPHRINE 5 MG in SODIUM CHLORIDE 0.9% 245 ML IV PRN ×2 (17:36→23:55)
[2019-06-24] MEDS: KSCALE TO 4.5 IV SCH (18:00)
[2019-06-24] MEDS ORDERED: POTASSIUM CHLORIDE 30 MEQ in SODIUM CHLORIDE 0.9% 100 ML IV ONE (18:00)
[2019-06-24] MEDS: LOVASTATIN 40 MG TABLET PO SCH (21:00)
[2019-06-24] MEDS: ENOXAPARIN 40 MG/0.4 ML SQ SCH (22:00)
[2019-06-24] MEDS: FILTER 0.22 MICRON (AMIODARONE) IV PRN (23:54)
[2019-06-25] MEDS ORDERED: EPINEPHRINE 10 MG in SODIUM CHLORIDE 0.9% 240 ML IV PRN (00:30)
[2019-06-25 00:52] LABS: VANCOMYCIN,TROUGH 35.9 mcg/mL (5.0-10.0)
[2019-06-25] MEDS ORDERED: POTASSIUM CHLORIDE 40 MEQ in SODIUM CHLORIDE 0.9% 100 ML IV ONE ×2 (01:30→09:30)
[2019-06-25] MEDS: SODIUM BICARBONATE IV SCH (02:16)
[2019-06-25] MEDS: STERILE WATER IV SCH (02:16)
[2019-06-25] MEDS: EPINEPHRINE 10 MG in SODIUM CHLORIDE 0.9% 240 ML IV PRN (02:17)
[2019-06-25 05:25] VITALS: BP 93/47
[2019-06-25] MEDS: PIPERACILLIN/TAZO/PMX 3.375GM 50 ML IV SCH ×3 (05:32→16:18)
[2019-06-25 05:58] LABS: ANION GAP 12 mmol/L (5-15); CHLORIDE 114 mmol/L (98-107)
[2019-06-25 05:59] LABS: CREATININE 1.75 mg/dL (0.7-1.3)
[2019-06-25 06:06] LABS: MEAN CORPUSCULAR HEMOGLOBIN 27.6 pg (27.5-34.5); MEAN CORPUSCULAR HGB CONC 33.3 g/dL (33.2-36.2); MEAN CORPUSCULAR VOLUME 82.8 fL (81-97); MEAN PLATELET VOLUME 8.4 fL (7.4-10.4); PLATELET COUNT 303 x10^3/uL (130-400); RED BLOOD COUNT 4.17 x10^6/uL (4.38-5.82); RED CELL DISTRIBUTION WIDTH 15.9 % (9.4-14.8)
[2019-06-25 06:30] LABS: MD YES
[2019-06-25 06:32] LABS: BAND#(MANUAL) 2.52 x10^3/uL; BANDS%(MANUAL) 8 % (0-7); LYMPH#(MANUAL) 1.26 x10^3/uL (1-3.4); LYMPHS% (MANUAL) 4 % (22-44); MONOS#(MANUAL) 1.89 x10^3/uL (0.3-2.7); MONOS% (MANUAL) 6 % (2-9); SEG#(MANUAL) 26.15 x10^3/uL (1.8-6.8); SEGS% (MANUAL) 82 % (42-75)
[2019-06-25 06:33] LABS: ACANTHOCYTES 1+; ANISOCYTOSIS 1+; ECHINOCYTES 1+; OVALOCYTES 1+
[2019-06-25 06:34] LABS: <PLATELET ESTIMATE> ADEQUATE; <PLT MORPHOLOGY> NORMAL PLT MORPH; PMNS WITH VACUOLES 1+
[2019-06-25] MEDS: PROPOFOL 100 ML IV PRN ×2 (07:40→07:42)
[2019-06-25] MEDS: POTASSIUM CHLORIDE 10% 40 MEQ/30 ML UDC NG SCH ×2 (09:17→20:01)
[2019-06-25] MEDS: FAMOTIDINE 20 MG TABLET PO SCH (09:17)
[2019-06-25] MEDS: SODIUM CHLORIDE FLUSH 10ML SYR IVF SCH ×2 (09:18→19:55)
[2019-06-25] MEDS: KSCALE TO 4.5 IV SCH ×4 (09:36→18:00)
[2019-06-25] MEDS: AMIODARONE 450 MG in DEXTROSE 5% 241 ML IV PRN (12:44)
[2019-06-25] MEDS: FENTANYL PF 100 MCG/2ML IVPush PRN (12:55)
[2019-06-25] MEDS: INSULIN LISPRO 100 UNITS/ML, PEN SQ-INSULIN SCH ×3 (13:21→20:01)
[2019-06-25] MEDS ORDERED: POTASSIUM CHLORIDE 30 MEQ in SODIUM CHLORIDE 0.9% 100 ML IV ONE (16:30)
[2019-06-25] MEDS: ENOXAPARIN 40 MG/0.4 ML SQ SCH (20:01)
[2019-06-25] MEDS: LOVASTATIN 40 MG TABLET PO SCH (21:04)
[2019-06-25] MEDS ORDERED: POTASSIUM CHLORIDE 20 MEQ in SODIUM CHLORIDE 0.9% 250 ML IV ONE (21:30)
[2019-06-25] MEDS ORDERED: POTASSIUM CHLORIDE PMX 100 ML IV ONE (22:00)
[2019-06-26] MEDS ORDERED: VANCOMYCIN 1,600 MG in SODIUM CHLORIDE 0.9% 250 ML IV SCH
[2019-06-26] MEDS: FENTANYL PF 100 MCG/2ML IVPush PRN ×3 (00:15→22:43)
[2019-06-26] MEDS: PIPERACILLIN/TAZO/PMX 3.375GM 50 ML IV SCH ×3 (00:16→15:53)
[2019-06-26 03:40] LABS: MEAN CORPUSCULAR HEMOGLOBIN 27.8 pg (27.5-34.5); MEAN CORPUSCULAR VOLUME 84.2 fL (81-97); MEAN PLATELET VOLUME 8.4 fL (7.4-10.4); PLATELET COUNT 277 x10^3/uL (130-400); RED BLOOD COUNT 4.07 x10^6/uL (4.38-5.82); RED CELL DISTRIBUTION WIDTH 16.1 % (9.4-14.8)
[2019-06-26 03:50] LABS: ANION GAP 15 mmol/L (5-15); CALCIUM 8.1 mg/dL (8.5-10.1); CHLORIDE 117 mmol/L (98-107); CREATININE 2.19 mg/dL (0.7-1.3)
[2019-06-26 03:54] LABS: MD YES
[2019-06-26 03:57] LABS: ANISOCYTOSIS 1+; BAND#(MANUAL) 1.84 x10^3/uL; BANDS%(MANUAL) 6 % (0-7); LYMPH#(MANUAL) 1.84 x10^3/uL (1-3.4); LYMPHS% (MANUAL) 6 % (22-44); METAMYELOCYTES# (MANUAL) 0.31 x10^3/uL (0-0); METAMYELOCYTES% (MANUAL) 1 % (0-1); MONOS#(MANUAL) 1.23 x10^3/uL (0.3-2.7); MONOS% (MANUAL) 4 % (2-9); SEG#(MANUAL) 25.48 x10^3/uL (1.8-6.8); SEGS% (MANUAL) 83 % (42-75)
[2019-06-26 03:58] LABS: ACANTHOCYTES 1+; ECHINOCYTES 1+; TOXIC GRAN 1+
[2019-06-26 03:59] LABS: <PLATELET ESTIMATE> ADEQUATE; LARGE PLATELETS 1+
[2019-06-26] MEDS: AMIODARONE 450 MG in DEXTROSE 5% 241 ML IV PRN ×2 (04:17→20:33)
[2019-06-26] MEDS: EPINEPHRINE 10 MG in SODIUM CHLORIDE 0.9% 240 ML IV PRN (04:59)
[2019-06-26] MEDS: KSCALE TO 4.5 IV SCH ×2 (04:59)
[2019-06-26] MEDS: INSULIN LISPRO 100 UNITS/ML, PEN SQ-INSULIN SCH (06:16)
[2019-06-26] MEDS: FAMOTIDINE 20 MG TABLET PO SCH (08:28)
[2019-06-26] MEDS: SODIUM CHLORIDE FLUSH 10ML SYR IVF SCH ×2 (08:30→20:34)
[2019-06-26] MEDS: THIAMINE 200 MG in SODIUM CHLORIDE 0.9% 50 ML IV SCH (09:50)
[2019-06-26] MEDS: REGULAR INSULIN 100 UNITS in SODIUM CHLORIDE 0.9% 99 ML IV PRN (09:51)
[2019-06-26 13:07] LABS: ACETONE, SERUM Large (80mg/dL) (Negative)
[2019-06-26] MEDS: PROPOFOL 100 ML IV PRN (16:14)
[2019-06-26] MEDS: ENOXAPARIN 40 MG/0.4 ML SQ SCH (20:33)
[2019-06-26] MEDS: ATORVASTATIN 10 MG TABLET PO SCH (21:26)
[2019-06-27] MEDS: PROPOFOL 100 ML IV PRN ×4 (01:10→23:35)
[2019-06-27] MEDS: PIPERACILLIN/TAZO/PMX 3.375GM 50 ML IV SCH ×4 (01:10→23:36)
[2019-06-27 04:18] LABS: MEAN CORPUSCULAR HEMOGLOBIN 27.4 pg (27.5-34.5); MEAN CORPUSCULAR HGB CONC 32.2 g/dL (33.2-36.2); MEAN CORPUSCULAR VOLUME 84.9 fL (81-97); MEAN PLATELET VOLUME 8.5 fL (7.4-10.4); PLATELET COUNT 243 x10^3/uL (130-400); RED BLOOD COUNT 3.95 x10^6/uL (4.38-5.82); RED CELL DISTRIBUTION WIDTH 15.8 % (9.4-14.8)
[2019-06-27 04:21] LABS: ANION GAP 7 mmol/L (5-15); CALCIUM 7.9 mg/dL (8.5-10.1); CHLORIDE 121 mmol/L (98-107); CREATININE 2.45 mg/dL (0.7-1.3); TRIGLYCERIDES 99 mg/dL (50-200)
[2019-06-27 04:50] LABS: MD YES
[2019-06-27 04:53] LABS: ANISOCYTOSIS 1+; BAND#(MANUAL) 0.67 x10^3/uL; BANDS%(MANUAL) 3 % (0-7); ECHINOCYTES 1+; LYMPH#(MANUAL) 0.45 x10^3/uL (1-3.4); LYMPHS% (MANUAL) 2 % (22-44); MONOS#(MANUAL) 0.89 x10^3/uL (0.3-2.7); MONOS% (MANUAL) 4 % (2-9); NRBC % (MANUAL) 4 % (0-1); OVALOCYTES 1+; REACTIVE LYMPHS # (MANUAL) 0.22 x10^3/uL (0-0); REACTIVE LYMPHS % (MANUAL) 1 % (0-0); SEG#(MANUAL) 20.07 x10^3/uL (1.8-6.8); SEGS% (MANUAL) 90 % (42-75)
[2019-06-27 04:54] LABS: <PLATELET ESTIMATE> ADEQUATE; ACANTHOCYTES 1+; LARGE PLATELETS 1+; SCHISTOCYTES 1+; TOXIC GRAN 1+
[2019-06-27] MEDS: POTASSIUM CHLORIDE 10% 40 MEQ/30 ML UDC NG SCH ×2 (09:01→19:52)
[2019-06-27] MEDS: LACTULOSE 20 GM/30 ML UDC NG SCH ×3 (09:01→19:52)
[2019-06-27] MEDS: FAMOTIDINE 20 MG TABLET PO SCH (09:01)
[2019-06-27] MEDS: SODIUM CHLORIDE FLUSH 10ML SYR IVF SCH ×2 (09:01→19:52)
[2019-06-27] MEDS: THIAMINE 200 MG in SODIUM CHLORIDE 0.9% 50 ML IV SCH (09:33)
[2019-06-27] MEDS: AMIODARONE 450 MG in DEXTROSE 5% 241 ML IV PRN (11:03)
[2019-06-27] MEDS: ENOXAPARIN 40 MG/0.4 ML SQ SCH (19:52)
[2019-06-27] MEDS: ATORVASTATIN 10 MG TABLET PO SCH (19:52)
[2019-06-27] MEDS: EPINEPHRINE 10 MG in SODIUM CHLORIDE 0.9% 240 ML IV PRN (23:35)
[2019-06-27] MEDS: FENTANYL PF 100 MCG/2ML IVPush PRN (23:36)
[2019-06-28] MEDS: AMIODARONE 450 MG in DEXTROSE 5% 241 ML IV PRN ×2 (04:50→21:10)
[2019-06-28 05:21] LABS: ANION GAP 5 mmol/L (5-15); CALCIUM 7.9 mg/dL (8.5-10.1); CHLORIDE 122 mmol/L (98-107); CREATININE 2.43 mg/dL (0.7-1.3)
[2019-06-28 05:23] LABS: MEAN CORPUSCULAR HEMOGLOBIN 27.8 pg (27.5-34.5); MEAN CORPUSCULAR HGB CONC 32.4 g/dL (33.2-36.2); MEAN CORPUSCULAR VOLUME 85.9 fL (81-97); MEAN PLATELET VOLUME 8.6 fL (7.4-10.4); PLATELET COUNT 213 x10^3/uL (130-400); RED BLOOD COUNT 3.99 x10^6/uL (4.38-5.82); RED CELL DISTRIBUTION WIDTH 15.8 % (9.4-14.8)
[2019-06-28 05:49] LABS: BASOPHILS # (AUTO) 0.03 x10^3/uL (0-0.1); BASOPHILS % (AUTO) 0 % (0-1); EOSINOPHILS # (AUTO) 0.12 x10^3/uL (0-0.4); EOSINOPHILS % (AUTO) 1 % (1-7); LYMPHOCYTES # (AUTO) 1.36 x10^3/uL (1-3.4); LYMPHOCYTES % (AUTO) 9 % (22-44); MD SCAN; MONOCYTES # (AUTO) 1.22 x10^3/uL (0.2-0.8); MONOCYTES % (AUTO) 8 % (2-9); NEUTROPHILS # (AUTO) 12.98 x10^3/uL (1.8-6.8); NEUTROPHILS % (AUTO) 83 % (42-75)
[2019-06-28] MEDS: PIPERACILLIN/TAZO/PMX 3.375GM 50 ML IV SCH ×4 (08:00→23:16)
[2019-06-28] MEDS: FAMOTIDINE 20 MG TABLET PO SCH (09:49)
[2019-06-28] MEDS: LACTULOSE 20 GM/30 ML UDC NG SCH ×3 (09:49→21:09)
[2019-06-28] MEDS: SODIUM CHLORIDE FLUSH 10ML SYR IVF SCH ×2 (09:49→21:09)
[2019-06-28] MEDS: THIAMINE 200 MG in SODIUM CHLORIDE 0.9% 50 ML IV SCH (09:49)
[2019-06-28] MEDS: PROPOFOL 100 ML IV PRN ×2 (16:26→23:17)
[2019-06-28] MEDS: FENTANYL PF 100 MCG/2ML IVPush PRN (17:52)
[2019-06-28] MEDS: ATORVASTATIN 10 MG TABLET PO SCH (21:09)
[2019-06-28] MEDS: ENOXAPARIN 40 MG/0.4 ML SQ SCH (21:09)
[2019-06-28] MEDS: FILTER 0.22 MICRON (AMIODARONE) IV PRN (21:10)
[2019-06-29] MEDS: FENTANYL PF 100 MCG/2ML IVPush PRN ×2 (03:30→11:26)
[2019-06-29] MEDS: PIPERACILLIN/TAZO/PMX 3.375GM 50 ML IV SCH (04:36)
[2019-06-29 06:22] LABS: CHLORIDE 122 mmol/L (98-107)
[2019-06-29 06:28] LABS: BASOPHILS % (AUTO) 0 % (0-1); EOSINOPHILS # (AUTO) 0.15 x10^3/uL (0-0.4); EOSINOPHILS % (AUTO) 1 % (1-7); LYMPHOCYTES # (AUTO) 1.38 x10^3/uL (1-3.4); LYMPHOCYTES % (AUTO) 13 % (22-44); MD NO; MEAN CORPUSCULAR HEMOGLOBIN 27.4 pg (27.5-34.5); MEAN CORPUSCULAR HGB CONC 32.2 g/dL (33.2-36.2); MEAN CORPUSCULAR VOLUME 85.3 fL (81-97); MEAN PLATELET VOLUME 9.1 fL (7.4-10.4); MONOCYTES # (AUTO) 0.98 x10^3/uL (0.2-0.8); MONOCYTES % (AUTO) 9 % (2-9); NEUTROPHILS # (AUTO) 8.03 x10^3/uL (1.8-6.8); NEUTROPHILS % (AUTO) 76 % (42-75); PLATELET COUNT 209 x10^3/uL (130-400); RED BLOOD COUNT 3.92 x10^6/uL (4.38-5.82); RED CELL DISTRIBUTION WIDTH 15.8 % (9.4-14.8)
[2019-06-29 06:35] LABS: ALANINE AMINOTRANSFERASE 19 U/L (12-78); ALBUMIN 1.4 g/dL (3.4-5.0); ALKALINE PHOSPHATASE 97 U/L (45-117); ANION GAP 7 mmol/L (5-15); BILIRUBIN,TOTAL 0.5 mg/dL (0.2-1.0); CALCIUM 7.6 mg/dL (8.5-10.1); CREATININE 2.39 mg/dL (0.7-1.3); TOTAL PROTEIN 5.6 g/dL (6.4-8.2)
[2019-06-29 06:48] LABS: HCT (SEDRATE) 33.4 % (39.2-51.8)
[2019-06-29] MEDS: PROPOFOL 100 ML IV PRN (06:59)
[2019-06-29] MEDS: LACTULOSE 20 GM/30 ML UDC NG SCH (08:20)
[2019-06-29] MEDS: SODIUM CHLORIDE FLUSH 10ML SYR IVF SCH ×2 (08:21→19:59)
[2019-06-29] MEDS: FAMOTIDINE 20 MG TABLET PO SCH (08:21)
[2019-06-29] MEDS: THIAMINE 200 MG in SODIUM CHLORIDE 0.9% 50 ML IV SCH (09:57)
[2019-06-29] MEDS: POTASSIUM CHLORIDE 10 MEQ in DEXTROSE 5% 1,000 ML IV SCH ×2 (09:57→19:58)
[2019-06-29] MEDS: AMPICILLIN/SULBACTAM 3 GM in SODIUM CHLORIDE 0.9% 100 ML IV SCH ×2 (10:55→17:09)
[2019-06-29] MEDS: REGULAR INSULIN 100 UNITS in SODIUM CHLORIDE 0.9% 99 ML IV PRN (10:55)
[2019-06-29] MEDS: DEXTROSE 50%, 50ML SYRINGE IV PRN (11:41)
[2019-06-29] MEDS: DEXTROSE 50%, 50ML SYRINGE IVPush PRN (11:42)
[2019-06-29] MEDS: AMIODARONE 450 MG in DEXTROSE 5% 241 ML IV PRN (12:13)
[2019-06-29] MEDS: EPINEPHRINE 10 MG in SODIUM CHLORIDE 0.9% 240 ML IV PRN (12:14)
--- NOTE | 2019-06-29 14:02 | NUR ---
REC: NPO with icp chips Discharge recommendation to acute rehab Addendum: 06/29/19 at [address] Amended: Links added.
[2019-06-29] MEDS: ATORVASTATIN 10 MG TABLET PO SCH (19:38)
[2019-06-29] MEDS: ENOXAPARIN 40 MG/0.4 ML SQ SCH (20:00)
[2019-06-29] MEDS ORDERED: DIPHENHYDRAMINE 50 MG/ML, 1ML IVPush PRN (23:00)
[2019-06-29] MEDS ORDERED: FENTANYL PF 100 MCG/2ML IVPush PRN (23:00)
[2019-06-30] MEDS: AMPICILLIN/SULBACTAM 3 GM in SODIUM CHLORIDE 0.9% 100 ML IV SCH ×3 (02:09→18:29)
[2019-06-30] MEDS: FILTER 0.22 MICRON (AMIODARONE) IV PRN (03:57)
[2019-06-30] MEDS: AMIODARONE 450 MG in DEXTROSE 5% 241 ML IV PRN ×2 (03:58→17:09)
[2019-06-30 05:23] LABS: ANION GAP 6 mmol/L (5-15); CALCIUM 7.5 mg/dL (8.5-10.1); CHLORIDE 118 mmol/L (98-107); CREATININE 2.24 mg/dL (0.7-1.3)
[2019-06-30 05:37] LABS: MEAN CORPUSCULAR HEMOGLOBIN 27.9 pg (27.5-34.5); MEAN CORPUSCULAR HGB CONC 32.5 g/dL (33.2-36.2); MEAN CORPUSCULAR VOLUME 85.9 fL (81-97); MEAN PLATELET VOLUME 9.1 fL (7.4-10.4); PLATELET COUNT 222 x10^3/uL (130-400); RED BLOOD COUNT 3.89 x10^6/uL (4.38-5.82); RED CELL DISTRIBUTION WIDTH 15.9 % (9.4-14.8)
[2019-06-30 05:57] LABS: MD YES
[2019-06-30 06:02] LABS: ACANTHOCYTES 1+; ANISOCYTOSIS 1+; BAND#(MANUAL) 0.23 x10^3/uL; BANDS%(MANUAL) 2 % (0-7); EOS#(MANUAL) 0.58 x10^3/uL (0.0-0.4); EOS% (MANUAL) 5 % (1-7); LYMPH#(MANUAL) 1.86 x10^3/uL (1-3.4); LYMPHS% (MANUAL) 16 % (22-44); MONOS#(MANUAL) 0.35 x10^3/uL (0.3-2.7); MONOS% (MANUAL) 3 % (2-9); NRBC % (MANUAL) 1 % (0-1); OVALOCYTES 1+; SEG#(MANUAL) 8.58 x10^3/uL (1.8-6.8); SEGS% (MANUAL) 74 % (42-75)
[2019-06-30 06:03] LABS: SCHISTOCYTES 1+
[2019-06-30 06:04] LABS: <PLATELET ESTIMATE> ADEQUATE; <PLT MORPHOLOGY> NORMAL PLT MORPH
[2019-06-30] MEDS ORDERED: SODIUM CHLORIDE 0.9%, 500ML IVBOLUS ONE (08:30)
[2019-06-30] MEDS ORDERED: LACTULOSE 20 GM/30 ML UDC NG SCH (09:00)
[2019-06-30] MEDS: THIAMINE 200 MG in SODIUM CHLORIDE 0.9% 50 ML IV SCH (09:57)
[2019-06-30] MEDS: SODIUM CHLORIDE FLUSH 10ML SYR IVF SCH ×2 (09:57→21:02)
--- NOTE | 2019-06-30 11:32 | NUR ---
REC: PURE/ NTL straws ok up for all meals small sips Discharge recommendations for ongoing skilled [employer] services in SNF Addendum: 06/30/19 at [address] Amended: Links added.
[2019-06-30] MEDS: FAMOTIDINE 20 MG TABLET PO SCH (13:06)
[2019-06-30] MEDS: POTASSIUM CHLORIDE 10 MEQ in DEXTROSE 5% 1,000 ML IV SCH (13:06)
[2019-06-30] MEDS: REGULAR INSULIN 100 UNITS in SODIUM CHLORIDE 0.9% 99 ML IV PRN (16:05)
[2019-06-30] MEDS: MIDODRINE 5 MG TABLET PO SCH ×2 (17:09→21:02)
[2019-06-30] MEDS: FENTANYL PF 100 MCG/2ML IVPush PRN (20:58)
[2019-06-30] MEDS: ENOXAPARIN 40 MG/0.4 ML SQ SCH (21:02)
[2019-06-30] MEDS: ATORVASTATIN 10 MG TABLET PO SCH (21:02)
[2019-07-01] MEDS: AMPICILLIN/SULBACTAM 3 GM in SODIUM CHLORIDE 0.9% 100 ML IV SCH ×3 (00:56→18:27)
[2019-07-01] MEDS: POTASSIUM CHLORIDE 10 MEQ in DEXTROSE 5% 1,000 ML IV SCH ×2 (02:00→13:42)
[2019-07-01 06:01] LABS: BASOPHILS # (AUTO) 0.01 x10^3/uL (0-0.1); BASOPHILS % (AUTO) 0 % (0-1); EOSINOPHILS # (AUTO) 0.17 x10^3/uL (0-0.4); EOSINOPHILS % (AUTO) 2 % (1-7); LYMPHOCYTES # (AUTO) 0.83 x10^3/uL (1-3.4); LYMPHOCYTES % (AUTO) 8 % (22-44); MD NO; MEAN CORPUSCULAR HEMOGLOBIN 27.7 pg (27.5-34.5); MEAN CORPUSCULAR HGB CONC 32.3 g/dL (33.2-36.2); MEAN CORPUSCULAR VOLUME 85.7 fL (81-97); MEAN PLATELET VOLUME 8.7 fL (7.4-10.4); MONOCYTES # (AUTO) 0.77 x10^3/uL (0.2-0.8); MONOCYTES % (AUTO) 7 % (2-9); NEUTROPHILS # (AUTO) 9.28 x10^3/uL (1.8-6.8); NEUTROPHILS % (AUTO) 84 % (42-75); PLATELET COUNT 257 x10^3/uL (130-400); RED BLOOD COUNT 4.24 x10^6/uL (4.38-5.82); RED CELL DISTRIBUTION WIDTH 16.1 % (9.4-14.8)
[2019-07-01 06:17] LABS: ANION GAP 6 mmol/L (5-15); CHLORIDE 117 mmol/L (98-107)
[2019-07-01 06:25] LABS: CALCIUM 7.7 mg/dL (8.5-10.1); CREATININE 1.96 mg/dL (0.7-1.3)
[2019-07-01] MEDS: MIDODRINE 5 MG TABLET PO SCH ×3 (09:40→21:11)
[2019-07-01] MEDS: FAMOTIDINE 20 MG TABLET PO SCH (09:40)
[2019-07-01] MEDS: LACTULOSE 20 GM/30 ML UDC PO SCH (09:41)
[2019-07-01] MEDS: SODIUM CHLORIDE FLUSH 10ML SYR IVF SCH ×2 (09:41→21:12)
[2019-07-01] MEDS: AMIODARONE 450 MG in DEXTROSE 5% 241 ML IV PRN (13:05)
[2019-07-01] MEDS: FENTANYL PF 100 MCG/2ML IVPush PRN ×2 (13:06→17:19)
[2019-07-01] MEDS ORDERED: GADOTERATE 5 MMOL/10 ML VIAL ONE (16:58)
[2019-07-01] MEDS ORDERED: GADOTERATE 10 MMOL/20 ML VIAL ONE (16:58)
[2019-07-01] MEDS: REGULAR INSULIN 100 UNITS in SODIUM CHLORIDE 0.9% 99 ML IV PRN (19:19)
[2019-07-01] MEDS: ATORVASTATIN 10 MG TABLET PO SCH (21:11)
[2019-07-01] MEDS: ENOXAPARIN 40 MG/0.4 ML SQ SCH (21:12)
[2019-07-02] MEDS: AMPICILLIN/SULBACTAM 3 GM in SODIUM CHLORIDE 0.9% 100 ML IV SCH ×3 (02:23→17:05)
[2019-07-02] MEDS: POTASSIUM CHLORIDE 10 MEQ in DEXTROSE 5% 1,000 ML IV SCH ×2 (02:24→17:01)
[2019-07-02] MEDS: DEXTROSE 50%, 50ML SYRINGE IVPush PRN (03:55)
[2019-07-02 04:58] LABS: ANION GAP 7 mmol/L (5-15); CALCIUM 7.4 mg/dL (8.5-10.1); CHLORIDE 115 mmol/L (98-107)
[2019-07-02 04:59] LABS: CREATININE 1.87 mg/dL (0.7-1.3)
[2019-07-02 05:10] LABS: BASOPHILS % (AUTO) 0 % (0-1); EOSINOPHILS # (AUTO) 0.09 x10^3/uL (0-0.4); EOSINOPHILS % (AUTO) 1 % (1-7); LYMPHOCYTES # (AUTO) 1.23 x10^3/uL (1-3.4); LYMPHOCYTES % (AUTO) 10 % (22-44); MD NO; MEAN CORPUSCULAR HEMOGLOBIN 27.8 pg (27.5-34.5); MEAN CORPUSCULAR HGB CONC 32.3 g/dL (33.2-36.2); MEAN CORPUSCULAR VOLUME 86.2 fL (81-97); MEAN PLATELET VOLUME 8.6 fL (7.4-10.4); MONOCYTES # (AUTO) 1.18 x10^3/uL (0.2-0.8); MONOCYTES % (AUTO) 9 % (2-9); NEUTROPHILS # (AUTO) 10.09 x10^3/uL (1.8-6.8); NEUTROPHILS % (AUTO) 80 % (42-75); PLATELET COUNT 293 x10^3/uL (130-400); RED BLOOD COUNT 3.85 x10^6/uL (4.38-5.82); RED CELL DISTRIBUTION WIDTH 15.8 % (9.4-14.8)
[2019-07-02] MEDS: FILTER 0.22 MICRON (AMIODARONE) IV PRN (06:24)
[2019-07-02] MEDS: AMIODARONE 450 MG in DEXTROSE 5% 241 ML IV PRN (06:24)
[2019-07-02] MEDS ORDERED: POTASSIUM CHLORIDE PMX 100 ML IV ONE (07:00)
[2019-07-02] MEDS: FAMOTIDINE 20 MG TABLET PO SCH (09:00)
[2019-07-02] MEDS: LACTULOSE 20 GM/30 ML UDC PO SCH (09:00)
[2019-07-02] MEDS ORDERED: NOREPINEPHRINE 8 MG in SODIUM CHLORIDE 0.9% 242 ML IV PRN (09:00)
[2019-07-02] MEDS: SODIUM CHLORIDE FLUSH 10ML SYR IVF SCH ×2 (10:06→21:37)
[2019-07-02] MEDS: INSULIN LISPRO 100 UNITS/ML, PEN SQ-INSULIN SCH ×5 (11:00→21:48)
[2019-07-02] MEDS ORDERED: BUPIVACAINE/PF-EPI 0.5% 1:200K ONE (11:53)
[2019-07-02] MEDS ORDERED: FENTANYL PF 100 MCG/2ML ONE (12:21)
[2019-07-02] MEDS ORDERED: HYDROCORTISONE 100 MG INJ. ONE (12:25)
[2019-07-02] MEDS ORDERED: ROCURONIUM 10MG/ML,5ML ONE (13:49)
[2019-07-02] MEDS ORDERED: ONDANSETRON 2MG/ML, 2ML ONE (13:49)
[2019-07-02] MEDS ORDERED: SUGAMMADEX 200 MG/2 ML IVPush ONE (13:49)
[2019-07-02] MEDS ORDERED: SUCCINYLCHOLINE 20 MG/ML, 10ML ONE (13:49)
[2019-07-02] MEDS ORDERED: PROPOFOL 10 MG/ML, 20ML ONE (13:49)
[2019-07-02] MEDS ORDERED: FENTANYL PF 100 MCG/2ML IV PRN (14:00)
[2019-07-02] MEDS ORDERED: ALBUTEROL/IPRATROPIUM 2.5MG/0.5MG, 3 ML NPPB PRN (14:00)
[2019-07-02] MEDS ORDERED: HYDROmorphone 2 MG/ML, 1ML IVPush PRN (14:00)
[2019-07-02] MEDS: MIDODRINE 5 MG TABLET PO SCH ×2 (17:00→21:37)
[2019-07-02] MEDS ORDERED: INSULIN GLARGINE 100 UNITS/ML, PEN SQ-INSULIN SCH (21:00)
[2019-07-02] MEDS: ENOXAPARIN 40 MG/0.4 ML SQ SCH (21:37)
[2019-07-02] MEDS: ATORVASTATIN 10 MG TABLET PO SCH (21:37)
[2019-07-03] MEDS ORDERED: DOPAMINE/D5W PMX 250 ML IV PRN
[2019-07-03 00:31] LABS: TROPONIN I 0.131 ng/mL (0.000-0.045)
[2019-07-03] MEDS: EPINEPHRINE 5 MG in SODIUM CHLORIDE 0.9% 245 ML IV PRN ×3 (01:07→21:30)
[2019-07-03] MEDS: AMPICILLIN/SULBACTAM 3 GM in SODIUM CHLORIDE 0.9% 100 ML IV SCH ×3 (02:18→17:48)
[2019-07-03 04:26] LABS: MEAN CORPUSCULAR HEMOGLOBIN 27.8 pg (27.5-34.5); MEAN CORPUSCULAR HGB CONC 32.4 g/dL (33.2-36.2); MEAN CORPUSCULAR VOLUME 85.8 fL (81-97); MEAN PLATELET VOLUME 8.8 fL (7.4-10.4); PLATELET COUNT 317 x10^3/uL (130-400); RED BLOOD COUNT 3.91 x10^6/uL (4.38-5.82); RED CELL DISTRIBUTION WIDTH 15.7 % (9.4-14.8)
[2019-07-03 04:32] LABS: ANION GAP 9 mmol/L (5-15); CALCIUM 7.5 mg/dL (8.5-10.1); CHLORIDE 112 mmol/L (98-107)
[2019-07-03 04:36] LABS: TROPONIN I 0.109 ng/mL (0.000-0.045)
[2019-07-03] MEDS: POTASSIUM CHLORIDE 10 MEQ in DEXTROSE 5% 1,000 ML IV SCH ×2 (04:37→15:03)
[2019-07-03 05:14] LABS: ANISOCYTOSIS 1+; BASOPHILS % (AUTO) 0 % (0-1); EOSINOPHILS % (AUTO) 0 % (1-7); LYMPHOCYTES # (AUTO) 0.58 x10^3/uL (1-3.4); LYMPHOCYTES % (AUTO) 4 % (22-44); MD MORPH REVIEW ONLY; MONOCYTES # (AUTO) 0.73 x10^3/uL (0.2-0.8); MONOCYTES % (AUTO) 5 % (2-9); NEUTROPHILS # (AUTO) 13.52 x10^3/uL (1.8-6.8); NEUTROPHILS % (AUTO) 91 % (42-75)
[2019-07-03 05:15] LABS: ACANTHOCYTES 1+; ECHINOCYTES 1+; OVALOCYTES 1+; SCHISTOCYTES 1+
[2019-07-03 05:16] LABS: <PLATELET ESTIMATE> ADEQUATE; <PLT MORPHOLOGY> NORMAL PLT MORPH; TOXIC GRAN 1+
[2019-07-03] MEDS: INSULIN LISPRO 100 UNITS/ML, PEN SQ-INSULIN SCH ×7 (06:24→20:14)
[2019-07-03] MEDS: LACTULOSE 20 GM/30 ML UDC PO SCH (08:57)
[2019-07-03] MEDS ORDERED: INSULIN GLARGINE 100 UNITS/ML, PEN SQ-INSULIN SCH ×2 (09:00→21:00)
[2019-07-03] MEDS ORDERED: MIDODRINE 5 MG TABLET PO SCH (09:00)
[2019-07-03] MEDS: FAMOTIDINE 20 MG TABLET PO SCH (09:01)
[2019-07-03] MEDS: SODIUM CHLORIDE FLUSH 10ML SYR IVF SCH ×2 (09:02→20:09)
--- NOTE | 2019-07-03 12:27 | NUR ---
REC: FULL LIQUID THINS PER GI Addendum: 07/03/19 at [address] Amended: Links added.
[2019-07-03] MEDS: ENOXAPARIN 40 MG/0.4 ML SQ SCH (20:09)
[2019-07-03] MEDS: ATORVASTATIN 10 MG TABLET PO SCH (20:09)
[2019-07-04] MEDS: POTASSIUM CHLORIDE 10 MEQ in DEXTROSE 5% 1,000 ML IV SCH ×2 (00:29→14:09)
[2019-07-04] MEDS: AMPICILLIN/SULBACTAM 3 GM in SODIUM CHLORIDE 0.9% 100 ML IV SCH ×3 (02:04→18:45)
[2019-07-04 04:48] LABS: ANION GAP 6 mmol/L (5-15); CHLORIDE 115 mmol/L (98-107); CREATININE 1.56 mg/dL (0.7-1.3)
[2019-07-04 04:57] LABS: MEAN CORPUSCULAR HGB CONC 32.4 g/dL (33.2-36.2); MEAN CORPUSCULAR VOLUME 86.5 fL (81-97); MEAN PLATELET VOLUME 8.4 fL (7.4-10.4); PLATELET COUNT 330 x10^3/uL (130-400); RED BLOOD COUNT 3.37 x10^6/uL (4.38-5.82); RED CELL DISTRIBUTION WIDTH 15.7 % (9.4-14.8)
[2019-07-04 05:17] LABS: MD YES
[2019-07-04 05:20] LABS: ACANTHOCYTES 1+; ANISOCYTOSIS 1+; BAND#(MANUAL) 0.11 x10^3/uL; BANDS%(MANUAL) 1 % (0-7); ECHINOCYTES 1+; LYMPH#(MANUAL) 0.44 x10^3/uL (1-3.4); LYMPHS% (MANUAL) 4 % (22-44); MONOS#(MANUAL) 0.44 x10^3/uL (0.3-2.7); MONOS% (MANUAL) 4 % (2-9); OVALOCYTES 1+; REACTIVE LYMPHS # (MANUAL) 0.11 x10^3/uL (0-0); REACTIVE LYMPHS % (MANUAL) 1 % (0-0); SEGS% (MANUAL) 90 % (42-75)
[2019-07-04 05:21] LABS: POLYCHROMASIA 1+; SCHISTOCYTES 1+
[2019-07-04 05:22] LABS: <PLATELET ESTIMATE> ADEQUATE; <PLT MORPHOLOGY> NORMAL PLT MORPH; TARGET CELLS 1+; TOXIC GRAN 1+
[2019-07-04] MEDS: INSULIN LISPRO 100 UNITS/ML, PEN SQ-INSULIN SCH ×7 (06:29→21:58)
[2019-07-04] MEDS ORDERED: POTASSIUM CHLORIDE 20 MEQ TAB.ER.PRT PO ONE (06:30)
[2019-07-04] MEDS: LACTULOSE 20 GM/30 ML UDC PO SCH (09:16)
[2019-07-04] MEDS: FAMOTIDINE 20 MG TABLET PO SCH (09:16)
[2019-07-04] MEDS: SODIUM CHLORIDE FLUSH 10ML SYR IVF SCH ×2 (09:17→21:59)
[2019-07-04] MEDS ORDERED: INSULIN GLARGINE 100 UNITS/ML, PEN SQ-INSULIN SCH (21:00)
[2019-07-04] MEDS: ATORVASTATIN 10 MG TABLET PO SCH (21:59)
[2019-07-04] MEDS: ENOXAPARIN 40 MG/0.4 ML SQ SCH (21:59)
[2019-07-05] MEDS: POTASSIUM CHLORIDE 10 MEQ in DEXTROSE 5% 1,000 ML IV SCH ×2 (01:32→12:39)
[2019-07-05] MEDS: AMPICILLIN/SULBACTAM 3 GM in SODIUM CHLORIDE 0.9% 100 ML IV SCH ×3 (02:10→18:56)
[2019-07-05] MEDS: DEXTROSE 50%, 50ML SYRINGE IV PRN (06:07)
[2019-07-05 06:13] LABS: MEAN CORPUSCULAR HEMOGLOBIN 27.9 pg (27.5-34.5); MEAN CORPUSCULAR HGB CONC 32.1 g/dL (33.2-36.2); MEAN PLATELET VOLUME 8.1 fL (7.4-10.4); PLATELET COUNT 380 x10^3/uL (130-400); RED CELL DISTRIBUTION WIDTH 15.9 % (9.4-14.8)
[2019-07-05 06:22] LABS: ANION GAP 7 mmol/L (5-15); CALCIUM 7.4 mg/dL (8.5-10.1); CHLORIDE 112 mmol/L (98-107)
[2019-07-05 06:23] LABS: CREATININE 1.49 mg/dL (0.7-1.3)
[2019-07-05 06:44] LABS: BASOPHILS % (AUTO) 0 % (0-1); EOSINOPHILS # (AUTO) 0.05 x10^3/uL (0-0.4); EOSINOPHILS % (AUTO) 1 % (1-7); LYMPHOCYTES # (AUTO) 0.56 x10^3/uL (1-3.4); LYMPHOCYTES % (AUTO) 7 % (22-44); MD SCAN; MONOCYTES # (AUTO) 0.61 x10^3/uL (0.2-0.8); MONOCYTES % (AUTO) 7 % (2-9); NEUTROPHILS # (AUTO) 7.44 x10^3/uL (1.8-6.8); NEUTROPHILS % (AUTO) 86 % (42-75)
[2019-07-05] MEDS: INSULIN LISPRO 100 UNITS/ML, PEN SQ-INSULIN SCH ×6 (07:00→21:17)
[2019-07-05] MEDS: LACTULOSE 20 GM/30 ML UDC PO SCH (09:00)
[2019-07-05] MEDS: FAMOTIDINE 20 MG TABLET PO SCH (09:38)
[2019-07-05] MEDS: SODIUM CHLORIDE FLUSH 10ML SYR IVF SCH ×2 (09:39→20:52)
[2019-07-05] MEDS ORDERED: POTASSIUM CHLORIDE 20 MEQ TAB.ER.PRT PO ONE (11:30)
[2019-07-05 20:38] VITALS: BP 124/80
[2019-07-05] MEDS: ATORVASTATIN 10 MG TABLET PO SCH (20:51)
[2019-07-05] MEDS: ENOXAPARIN 40 MG/0.4 ML SQ SCH (20:51)
[2019-07-05] MEDS: INSULIN GLARGINE 100 UNITS/ML, PEN SQ-INSULIN SCH (21:18)
[2019-07-06] MEDS: AMPICILLIN/SULBACTAM 3 GM in SODIUM CHLORIDE 0.9% 100 ML IV SCH ×3 (02:55→19:55)
[2019-07-06 03:48] VITALS: BP 119/76
[2019-07-06 05:54] LABS: ANION GAP 6 mmol/L (5-15); CALCIUM 7.3 mg/dL (8.5-10.1); CHLORIDE 107 mmol/L (98-107)
[2019-07-06 06:44] LABS: HCT (SEDRATE) 31.5 % (39.2-51.8)
[2019-07-06 06:45] LABS: MEAN CORPUSCULAR HEMOGLOBIN 27.9 pg (27.5-34.5); MEAN CORPUSCULAR HGB CONC 32.1 g/dL (33.2-36.2); MEAN CORPUSCULAR VOLUME 86.8 fL (81-97); MEAN PLATELET VOLUME 7.9 fL (7.4-10.4); PLATELET COUNT 367 x10^3/uL (130-400); RED BLOOD COUNT 3.62 x10^6/uL (4.38-5.82); RED CELL DISTRIBUTION WIDTH 15.8 % (9.4-14.8)
[2019-07-06] MEDS: INSULIN LISPRO 100 UNITS/ML, PEN SQ-INSULIN SCH ×7 (07:00→20:28)
[2019-07-06 07:01] LABS: BASOPHILS % (AUTO) 0 % (0-1); EOSINOPHILS # (AUTO) 0.14 x10^3/uL (0-0.4); EOSINOPHILS % (AUTO) 2 % (1-7); LYMPHOCYTES # (AUTO) 0.68 x10^3/uL (1-3.4); LYMPHOCYTES % (AUTO) 8 % (22-44); MD MORPH REVIEW ONLY; MONOCYTES # (AUTO) 0.65 x10^3/uL (0.2-0.8); MONOCYTES % (AUTO) 8 % (2-9); NEUTROPHILS % (AUTO) 83 % (42-75)
[2019-07-06 07:02] LABS: ACANTHOCYTES 1+; ANISOCYTOSIS 1+; ECHINOCYTES 1+; POLYCHROMASIA 1+; SCHISTOCYTES 1+
[2019-07-06 07:03] LABS: OVALOCYTES 1+; SPHEROCYTES 1+
[2019-07-06 07:04] LABS: <PLATELET ESTIMATE> ADEQUATE; <PLT MORPHOLOGY> NORMAL PLT MORPH
[2019-07-06 08:05] VITALS: BP 122/75
[2019-07-06] MEDS: SODIUM CHLORIDE FLUSH 10ML SYR IVF SCH ×2 (09:04→19:58)
[2019-07-06] MEDS: FAMOTIDINE 20 MG TABLET PO SCH (09:04)
[2019-07-06] MEDS: LACTULOSE 20 GM/30 ML UDC PO SCH (09:04)
[2019-07-06 13:43] VITALS: BP 123/72
[2019-07-06] MEDS: ATORVASTATIN 10 MG TABLET PO SCH (19:55)
[2019-07-06] MEDS: ENOXAPARIN 40 MG/0.4 ML SQ SCH (19:58)
[2019-07-06 20:07] VITALS: BP 118/69
[2019-07-06] MEDS: INSULIN GLARGINE 100 UNITS/ML, PEN SQ-INSULIN SCH (20:36)
[2019-07-07 00:54] VITALS: BP 147/70
[2019-07-07] MEDS: OXYcodone IR 5MG TABLET PO PRN ×2 (03:06→20:40)
[2019-07-07] MEDS: AMPICILLIN/SULBACTAM 3 GM in SODIUM CHLORIDE 0.9% 100 ML IV SCH ×3 (03:58→20:40)
[2019-07-07] MEDS: INSULIN LISPRO 100 UNITS/ML, PEN SQ-INSULIN SCH ×7 (07:00→21:11)
[2019-07-07 07:52] VITALS: BP 121/72
[2019-07-07] MEDS ORDERED: REGADENOSON 0.4 MG/5 ML SYRINGE ONE (09:21)
[2019-07-07] MEDS: LACTULOSE 20 GM/30 ML UDC PO SCH (11:15)
[2019-07-07] MEDS: SODIUM CHLORIDE FLUSH 10ML SYR IVF SCH ×2 (11:16→20:41)
[2019-07-07] MEDS: FAMOTIDINE 20 MG TABLET PO SCH (11:16)
[2019-07-07 11:21] LABS: ANION GAP 6 mmol/L (5-15); CALCIUM 7.2 mg/dL (8.5-10.1); CHLORIDE 107 mmol/L (98-107); CREATININE 1.87 mg/dL (0.7-1.3)
[2019-07-07 13:05] VITALS: BP 125/77
[2019-07-07 18:48] VITALS: BP 137/69
[2019-07-07] MEDS: ENOXAPARIN 40 MG/0.4 ML SQ SCH (20:40)
[2019-07-07] MEDS: ATORVASTATIN 10 MG TABLET PO SCH (20:40)
[2019-07-07] MEDS: INSULIN GLARGINE 100 UNITS/ML, PEN SQ-INSULIN SCH (21:12)
[2019-07-08 00:46] VITALS: BP 122/76
[2019-07-08] MEDS: AMPICILLIN/SULBACTAM 3 GM in SODIUM CHLORIDE 0.9% 100 ML IV SCH ×3 (04:17→21:37)
[2019-07-08 08:23] VITALS: BP 133/75
[2019-07-08] MEDS: INSULIN LISPRO 100 UNITS/ML, PEN SQ-INSULIN SCH ×7 (08:34→22:37)
[2019-07-08] MEDS: SODIUM CHLORIDE FLUSH 10ML SYR IVF SCH ×2 (08:35→22:37)
[2019-07-08] MEDS: FAMOTIDINE 20 MG TABLET PO SCH (08:35)
[2019-07-08] MEDS ORDERED: CALCIUM GLUCONATE 4.6 MEQ in SODIUM CHLORIDE 0.9% 100 ML IV ONE (09:00)
[2019-07-08] MEDS: LACTULOSE 20 GM/30 ML UDC PO SCH (09:00)
[2019-07-08] MEDS ORDERED: POTASSIUM PHOSPHATE 44 MEQ in SODIUM CHLORIDE 0.9% 500 ML IV ONE (09:00)
[2019-07-08] MEDS: CHOLECALCIFEROL 400 UNITS TABLET PO SCH (10:06)
[2019-07-08] MEDS: MULTIVITS,STRESS FORMULA 1 TABLET PO SCH (10:06)
[2019-07-08 12:46] VITALS: BP 109/62
[2019-07-08] MEDS: OXYcodone IR 5MG TABLET PO PRN (16:04)
[2019-07-08] MEDS: ASCORBIC ACID 500 MG TABLET PO SCH (18:04)
[2019-07-08 19:13] VITALS: BP 123/71
[2019-07-08] MEDS: INSULIN GLARGINE 100 UNITS/ML, PEN SQ-INSULIN SCH (22:36)
[2019-07-08] MEDS: ATORVASTATIN 10 MG TABLET PO SCH (22:37)
[2019-07-08] MEDS: ENOXAPARIN 40 MG/0.4 ML SQ SCH (22:37)
[2019-07-09 00:32] VITALS: BP 121/77
[2019-07-09] MEDS: AMPICILLIN/SULBACTAM 3 GM in SODIUM CHLORIDE 0.9% 100 ML IV SCH ×3 (04:43→20:10)
[2019-07-09] MEDS ORDERED: SODIUM CHLORIDE 0.9% 1,000 ML IV SCH (06:00)
[2019-07-09] MEDS: INSULIN LISPRO 100 UNITS/ML, PEN SQ-INSULIN SCH ×9 (07:00→21:00)
[2019-07-09 07:19] VITALS: BP 159/70
[2019-07-09] MEDS: LACTULOSE 20 GM/30 ML UDC PO SCH (10:09)
[2019-07-09] MEDS: FAMOTIDINE 20 MG TABLET PO SCH (10:09)
[2019-07-09] MEDS: CHOLECALCIFEROL 400 UNITS TABLET PO SCH (10:09)
[2019-07-09] MEDS: MULTIVITS,STRESS FORMULA 1 TABLET PO SCH (10:09)
[2019-07-09] MEDS: ASCORBIC ACID 500 MG TABLET PO SCH ×2 (10:09→17:27)
[2019-07-09] MEDS: SODIUM CHLORIDE FLUSH 10ML SYR IVF SCH ×2 (10:10→22:14)
[2019-07-09] MEDS: ASPIRIN 81 MG TABLET EC PO SCH (13:31)
[2019-07-09 13:39] VITALS: BP 148/80
[2019-07-09 20:17] VITALS: BP 119/71
[2019-07-09] MEDS: ATORVASTATIN 10 MG TABLET PO SCH (22:14)
[2019-07-09] MEDS: OXYcodone IR 5MG TABLET PO PRN (22:15)
[2019-07-09] MEDS: ENOXAPARIN 40 MG/0.4 ML SQ SCH (22:15)
[2019-07-09] MEDS: INSULIN GLARGINE 100 UNITS/ML, PEN SQ-INSULIN SCH (22:16)
[2019-07-10 02:50] VITALS: BP 119/72
[2019-07-10] MEDS: AMPICILLIN/SULBACTAM 3 GM in SODIUM CHLORIDE 0.9% 100 ML IV SCH ×3 (03:53→22:18)
[2019-07-10 05:36] LABS: CHLORIDE 106 mmol/L (98-107)
[2019-07-10 05:41] LABS: ANION GAP 8 mmol/L (5-15); CALCIUM 6.9 mg/dL (8.5-10.1); CREATININE 1.68 mg/dL (0.7-1.3)
[2019-07-10] MEDS: ASPIRIN 81 MG TABLET EC PO SCH (05:47)
[2019-07-10 05:52] LABS: MEAN CORPUSCULAR HEMOGLOBIN 28.2 pg (27.5-34.5); MEAN CORPUSCULAR HGB CONC 32.7 g/dL (33.2-36.2); MEAN CORPUSCULAR VOLUME 86.1 fL (81-97); MEAN PLATELET VOLUME 8.2 fL (7.4-10.4); PLATELET COUNT 447 x10^3/uL (130-400); RED BLOOD COUNT 3.27 x10^6/uL (4.38-5.82); RED CELL DISTRIBUTION WIDTH 17.3 % (9.4-14.8)
[2019-07-10] MEDS ORDERED: SODIUM CHLORIDE 0.9% 1,000 ML IV SCH (06:00)
[2019-07-10 06:34] LABS: BASOPHILS # (AUTO) 0.01 x10^3/uL (0-0.1); BASOPHILS % (AUTO) 0 % (0-1); EOSINOPHILS # (AUTO) 0.36 x10^3/uL (0-0.4); EOSINOPHILS % (AUTO) 4 % (1-7); LYMPHOCYTES # (AUTO) 1.32 x10^3/uL (1-3.4); LYMPHOCYTES % (AUTO) 15 % (22-44); MD SCAN; MONOCYTES # (AUTO) 0.64 x10^3/uL (0.2-0.8); MONOCYTES % (AUTO) 7 % (2-9); NEUTROPHILS # (AUTO) 6.36 x10^3/uL (1.8-6.8); NEUTROPHILS % (AUTO) 73 % (42-75)
[2019-07-10] MEDS: INSULIN LISPRO 100 UNITS/ML, PEN SQ-INSULIN SCH ×7 (07:00→22:17)
[2019-07-10 08:05] VITALS: BP 122/72
[2019-07-10] MEDS: CHOLECALCIFEROL 400 UNITS TABLET PO SCH (09:22)
[2019-07-10] MEDS: FAMOTIDINE 20 MG TABLET PO SCH (09:22)
[2019-07-10] MEDS: LACTULOSE 20 GM/30 ML UDC PO SCH (09:22)
[2019-07-10] MEDS: ASCORBIC ACID 500 MG TABLET PO SCH ×2 (09:22→17:41)
[2019-07-10] MEDS: MULTIVITS,STRESS FORMULA 1 TABLET PO SCH (09:22)
[2019-07-10] MEDS: SODIUM CHLORIDE FLUSH 10ML SYR IVF SCH ×2 (09:23→22:18)
[2019-07-10] MEDS ORDERED: FENTANYL PF 100 MCG/2ML ONE (13:03)
[2019-07-10] MEDS ORDERED: VERAPAMIL 2.5 MG/ML, 2ML ONE (13:03)
[2019-07-10] MEDS ORDERED: LIDOCAINE-MPF 1%, 5ML ONE (13:03)
[2019-07-10] MEDS ORDERED: HEPARIN 1,000 UNITS/ML, 10ML ONE (13:03)
[2019-07-10] MEDS ORDERED: MIDAZOLAM 1 MG/ML, 2ML ONE (13:03)
[2019-07-10] MEDS ORDERED: BIVALIRUDIN 250 MG ONE (13:34)
[2019-07-10] MEDS ORDERED: PRASUGREL 10 MG TABLET ONE (14:08)
[2019-07-10 15:22] VITALS: BP 112/68
[2019-07-10 19:44] VITALS: BP 133/74
[2019-07-10] MEDS: ENOXAPARIN 40 MG/0.4 ML SQ SCH (21:00)
[2019-07-10] MEDS: ATORVASTATIN 10 MG TABLET PO SCH (22:16)
[2019-07-10] MEDS: INSULIN GLARGINE 100 UNITS/ML, PEN SQ-INSULIN SCH (22:17)
[2019-07-11 01:29] VITALS: BP 110/66
[2019-07-11] MEDS: AMPICILLIN/SULBACTAM 3 GM in SODIUM CHLORIDE 0.9% 100 ML IV SCH ×3 (06:22→22:27)
[2019-07-11] MEDS: ASPIRIN 81 MG TABLET EC PO SCH (06:22)
[2019-07-11 06:49] LABS: MEAN CORPUSCULAR HEMOGLOBIN 28.5 pg (27.5-34.5); MEAN CORPUSCULAR HGB CONC 32.6 g/dL (33.2-36.2); MEAN CORPUSCULAR VOLUME 87.2 fL (81-97); MEAN PLATELET VOLUME 8.1 fL (7.4-10.4); PLATELET COUNT 465 x10^3/uL (130-400); RED BLOOD COUNT 2.89 x10^6/uL (4.38-5.82); RED CELL DISTRIBUTION WIDTH 16.7 % (9.4-14.8)
[2019-07-11 06:56] LABS: ALBUMIN 0.9 g/dL (3.4-5.0); ANION GAP 7 mmol/L (5-15); CHLORIDE 108 mmol/L (98-107); CREATININE 1.38 mg/dL (0.7-1.3)
[2019-07-11] MEDS: INSULIN LISPRO 100 UNITS/ML, PEN SQ-INSULIN SCH ×7 (07:00→20:16)
[2019-07-11 07:02] VITALS: BP 115/69
[2019-07-11 07:31] LABS: BASOPHILS # (AUTO) 0.08 x10^3/uL (0-0.1); BASOPHILS % (AUTO) 1 % (0-1); EOSINOPHILS # (AUTO) 0.32 x10^3/uL (0-0.4); EOSINOPHILS % (AUTO) 4 % (1-7); LYMPHOCYTES # (AUTO) 1.73 x10^3/uL (1-3.4); LYMPHOCYTES % (AUTO) 20 % (22-44); MD MORPH REVIEW ONLY; MONOCYTES # (AUTO) 0.67 x10^3/uL (0.2-0.8); MONOCYTES % (AUTO) 8 % (2-9); NEUTROPHILS # (AUTO) 6.03 x10^3/uL (1.8-6.8); NEUTROPHILS % (AUTO) 68 % (42-75)
[2019-07-11 07:32] LABS: ACANTHOCYTES 1+; ANISOCYTOSIS 1+; ECHINOCYTES 1+; POLYCHROMASIA 1+; SPHEROCYTES 1+
[2019-07-11 07:33] LABS: <PLATELET ESTIMATE> INCREASED
[2019-07-11 07:34] LABS: <PLT MORPHOLOGY> NORMAL PLT MORPH
[2019-07-11 07:35] LABS: HOWELL-JOLLY BODIES 1+
[2019-07-11] MEDS: CLOPIDOGREL 75 MG TABLET PO SCH (08:27)
[2019-07-11] MEDS: FAMOTIDINE 20 MG TABLET PO SCH (08:28)
[2019-07-11] MEDS: SODIUM CHLORIDE FLUSH 10ML SYR IVF SCH ×2 (08:29→20:14)
[2019-07-11] MEDS ORDERED: POTASSIUM CHLORIDE 20 MEQ TAB.ER.PRT PO ONE (10:00)
[2019-07-11] MEDS: ASCORBIC ACID 500 MG TABLET PO SCH ×2 (11:14→17:08)
[2019-07-11] MEDS: MULTIVITS,STRESS FORMULA 1 TABLET PO SCH (11:14)
[2019-07-11] MEDS: CHOLECALCIFEROL 400 UNITS TABLET PO SCH (11:14)
[2019-07-11] MEDS: LACTULOSE 20 GM/30 ML UDC PO SCH (11:14)
[2019-07-11 12:58] VITALS: BP 112/58
[2019-07-11 19:26] VITALS: BP 107/62
[2019-07-11] MEDS: ATORVASTATIN 10 MG TABLET PO SCH (20:14)
[2019-07-11] MEDS: INSULIN GLARGINE 100 UNITS/ML, PEN SQ-INSULIN SCH (20:18)
[2019-07-12 00:49] VITALS: BP 107/63
[2019-07-12] MEDS: ASPIRIN 81 MG TABLET EC PO SCH (06:06)
[2019-07-12] MEDS: AMPICILLIN/SULBACTAM 3 GM in SODIUM CHLORIDE 0.9% 100 ML IV SCH ×3 (06:14→22:07)
[2019-07-12] MEDS: INSULIN LISPRO 100 UNITS/ML, PEN SQ-INSULIN SCH ×7 (07:00→20:38)
[2019-07-12 07:13] LABS: BASOPHILS # (AUTO) 0.06 x10^3/uL (0-0.1); BASOPHILS % (AUTO) 1 % (0-1); EOSINOPHILS # (AUTO) 0.37 x10^3/uL (0-0.4); EOSINOPHILS % (AUTO) 4 % (1-7); LYMPHOCYTES # (AUTO) 2.17 x10^3/uL (1-3.4); LYMPHOCYTES % (AUTO) 23 % (22-44); MD NO; MEAN CORPUSCULAR HEMOGLOBIN 28.1 pg (27.5-34.5); MEAN CORPUSCULAR HGB CONC 32.5 g/dL (33.2-36.2); MEAN CORPUSCULAR VOLUME 86.4 fL (81-97); MEAN PLATELET VOLUME 7.7 fL (7.4-10.4); MONOCYTES % (AUTO) 10 % (2-9); NEUTROPHILS # (AUTO) 5.99 x10^3/uL (1.8-6.8); NEUTROPHILS % (AUTO) 62 % (42-75); PLATELET COUNT 464 x10^3/uL (130-400); RED BLOOD COUNT 2.72 x10^6/uL (4.38-5.82); RED CELL DISTRIBUTION WIDTH 17.8 % (9.4-14.8)
[2019-07-12 07:21] LABS: % IRON SATURATION 25 % (20-55); ALANINE AMINOTRANSFERASE 10 U/L (12-78); ANION GAP 5 mmol/L (5-15); CHLORIDE 109 mmol/L (98-107); CREATININE 1.35 mg/dL (0.7-1.3); IRON LEVEL 34 mcg/dL (65-175); TOTAL IRON BINDING CAPACITY 136 mcg/dL (250-450)
[2019-07-12 07:24] LABS: ALKALINE PHOSPHATASE 113 U/L (45-117); BILIRUBIN,TOTAL 0.2 mg/dL (0.2-1.0); CHOL/HDL RATIO 2.6; CHOLESTEROL, TOTAL 97 mg/dL (140-239); HDL CHOL % 38 % (26-37); HDL CHOLESTEROL (DIRECT) 37 mg/dL (40-60); LDL CHOLESTEROL,CALCULATED 51 mg/dL (54-169); LDL/HDL RATIO 1.4 (0.5-3.0); TOTAL PROTEIN 5.3 g/dL (6.4-8.2); TRIGLYCERIDES 43 mg/dL (50-200); VLDL CHOLESTEROL 9 mg/dL (0-25)
[2019-07-12 07:36] VITALS: BP 96/57
[2019-07-12] MEDS: MULTIVITS,STRESS FORMULA 1 TABLET PO SCH (08:33)
[2019-07-12] MEDS: FAMOTIDINE 20 MG TABLET PO SCH (08:33)
[2019-07-12] MEDS: CHOLECALCIFEROL 400 UNITS TABLET PO SCH (08:33)
[2019-07-12] MEDS: CLOPIDOGREL 75 MG TABLET PO SCH (08:34)
[2019-07-12] MEDS: POTASSIUM CHLORIDE 20 MEQ TAB.ER.PRT PO SCH (08:34)
[2019-07-12] MEDS: ASCORBIC ACID 500 MG TABLET PO SCH ×2 (08:34→17:08)
[2019-07-12] MEDS: SODIUM CHLORIDE FLUSH 10ML SYR IVF SCH ×2 (08:34→20:30)
[2019-07-12] MEDS: LACTULOSE 20 GM/30 ML UDC PO SCH (08:35)
[2019-07-12] MEDS: IRON SUCROSE COMPLEX 100MG/5ML IV SCH (10:13)
[2019-07-12 14:30] VITALS: BP 108/59
[2019-07-12 20:00] VITALS: BP 119/69
[2019-07-12] MEDS: ATORVASTATIN 10 MG TABLET PO SCH (20:30)
[2019-07-12] MEDS: INSULIN GLARGINE 100 UNITS/ML, PEN SQ-INSULIN SCH (20:39)
[2019-07-13] VITALS (10 sets, daily range): BP systolic 91–113; BP diastolic 53–71
[2019-07-13] MEDS: ACETAMINOPHEN 325 MG TABLET PO PRN (03:46)
[2019-07-13] MEDS: OXYcodone IR 5MG TABLET PO PRN (03:46)
[2019-07-13] MEDS: AMPICILLIN/SULBACTAM 3 GM in SODIUM CHLORIDE 0.9% 100 ML IV SCH ×3 (06:05→22:00)
[2019-07-13 06:31] LABS: MEAN CORPUSCULAR HEMOGLOBIN 27.8 pg (27.5-34.5); MEAN CORPUSCULAR HGB CONC 31.8 g/dL (33.2-36.2); MEAN CORPUSCULAR VOLUME 87.4 fL (81-97); MEAN PLATELET VOLUME 7.8 fL (7.4-10.4); PLATELET COUNT 457 x10^3/uL (130-400); RED BLOOD COUNT 2.53 x10^6/uL (4.38-5.82); RED CELL DISTRIBUTION WIDTH 18.1 % (9.4-14.8)
[2019-07-13 06:32] LABS: ANION GAP 7 mmol/L (5-15); CALCIUM 6.8 mg/dL (8.5-10.1); CHLORIDE 109 mmol/L (98-107)
[2019-07-13 06:38] LABS: ALANINE AMINOTRANSFERASE 13 U/L (12-78); ALKALINE PHOSPHATASE 114 U/L (45-117); BILIRUBIN,TOTAL < 0.1 mg/dL (0.2-1.0); CREATININE 1.26 mg/dL (0.7-1.3)
[2019-07-13 06:55] LABS: BASOPHILS # (AUTO) 0.04 x10^3/uL (0-0.1); BASOPHILS % (AUTO) 1 % (0-1); EOSINOPHILS # (AUTO) 0.34 x10^3/uL (0-0.4); EOSINOPHILS % (AUTO) 4 % (1-7); LYMPHOCYTES # (AUTO) 1.86 x10^3/uL (1-3.4); LYMPHOCYTES % (AUTO) 20 % (22-44); MD SCAN; MONOCYTES # (AUTO) 0.94 x10^3/uL (0.2-0.8); MONOCYTES % (AUTO) 10 % (2-9); NEUTROPHILS # (AUTO) 6.16 x10^3/uL (1.8-6.8); NEUTROPHILS % (AUTO) 66 % (42-75)
[2019-07-13] MEDS: INSULIN GLARGINE 100 UNITS/ML, PEN SQ-INSULIN SCH ×3 (09:00→21:51)
[2019-07-13] MEDS: INSULIN LISPRO 100 UNITS/ML, PEN SQ-INSULIN SCH ×7 (09:19→21:00)
[2019-07-13] MEDS: CHOLECALCIFEROL 400 UNITS TABLET PO SCH (09:20)
[2019-07-13] MEDS: MULTIVITS,STRESS FORMULA 1 TABLET PO SCH (09:20)
[2019-07-13] MEDS: ASCORBIC ACID 500 MG TABLET PO SCH ×2 (09:21→16:52)
[2019-07-13] MEDS: FAMOTIDINE 20 MG TABLET PO SCH (09:21)
[2019-07-13] MEDS: CLOPIDOGREL 75 MG TABLET PO SCH (09:21)
[2019-07-13] MEDS: IRON SUCROSE COMPLEX 100MG/5ML IV SCH (09:21)
[2019-07-13] MEDS: LACTULOSE 20 GM/30 ML UDC PO SCH (09:21)
[2019-07-13] MEDS: SODIUM CHLORIDE FLUSH 10ML SYR IVF SCH ×2 (09:21→21:00)
[2019-07-13] MEDS: POTASSIUM CHLORIDE 20 MEQ TAB.ER.PRT PO SCH (09:21)
[2019-07-13] MEDS: ATORVASTATIN 10 MG TABLET PO SCH (21:37)
[2019-07-14 01:07] VITALS: BP 104/65
[2019-07-14] MEDS: ACETAMINOPHEN 325 MG TABLET PO PRN (05:43)
[2019-07-14] MEDS: AMPICILLIN/SULBACTAM 3 GM in SODIUM CHLORIDE 0.9% 100 ML IV SCH ×2 (06:10→16:42)
[2019-07-14] MEDS: INSULIN LISPRO 100 UNITS/ML, PEN SQ-INSULIN SCH ×7 (07:00→22:57)
[2019-07-14] MEDS: MULTIVITS,STRESS FORMULA 1 TABLET PO SCH (08:13)
[2019-07-14] MEDS: FAMOTIDINE 20 MG TABLET PO SCH (08:13)
[2019-07-14] MEDS: CHOLECALCIFEROL 400 UNITS TABLET PO SCH (08:13)
[2019-07-14] MEDS: CLOPIDOGREL 75 MG TABLET PO SCH (08:13)
[2019-07-14] MEDS: ASCORBIC ACID 500 MG TABLET PO SCH ×2 (08:14→16:41)
[2019-07-14] MEDS: POTASSIUM CHLORIDE 20 MEQ TAB.ER.PRT PO SCH (08:14)
[2019-07-14] MEDS: LACTULOSE 20 GM/30 ML UDC PO SCH (08:14)
[2019-07-14] MEDS: IRON SUCROSE COMPLEX 100MG/5ML IV SCH (08:14)
[2019-07-14] MEDS: SODIUM CHLORIDE FLUSH 10ML SYR IVF SCH ×2 (08:15→22:55)
[2019-07-14] MEDS: INSULIN GLARGINE 100 UNITS/ML, PEN SQ-INSULIN SCH ×2 (08:18→22:56)
[2019-07-14] MEDS ORDERED: OMNIPAQUE 350 MG/ML, 100ML BOTTLE ONE (12:58)
[2019-07-14 13:07] VITALS: BP 126/74
--- NOTE | 2019-07-14 15:46 | NUR ---
green activity sheet established and hung up in room, including bed level upper body exercises, lower body exercises, and kirill lift to bedside recliner chair daily. MAYO notified. Addendum: 07/14/19 at 1554 by George Pereyra OT Amended: Links added.
[2019-07-14 19:26] VITALS: BP 118/58
[2019-07-14] MEDS: ATORVASTATIN 10 MG TABLET PO SCH (22:55)
[2019-07-15 01:41] VITALS: BP 123/71
[2019-07-15] MEDS: AMPICILLIN/SULBACTAM 3 GM in SODIUM CHLORIDE 0.9% 100 ML IV SCH ×3 (02:02→18:40)
[2019-07-15 04:39] LABS: HCT (SEDRATE) 28.3 % (39.2-51.8)
[2019-07-15 04:57] LABS: MEAN CORPUSCULAR HEMOGLOBIN 28.1 pg (27.5-34.5); MEAN CORPUSCULAR HGB CONC 32.1 g/dL (33.2-36.2); MEAN CORPUSCULAR VOLUME 87.4 fL (81-97); MEAN PLATELET VOLUME 7.8 fL (7.4-10.4); PLATELET COUNT 655 x10^3/uL (130-400); RED BLOOD COUNT 3.21 x10^6/uL (4.38-5.82)
[2019-07-15 05:45] LABS: BASOPHILS # (AUTO) 0.06 x10^3/uL (0-0.1); BASOPHILS % (AUTO) 1 % (0-1); EOSINOPHILS # (AUTO) 0.44 x10^3/uL (0-0.4); EOSINOPHILS % (AUTO) 4 % (1-7); LYMPHOCYTES # (AUTO) 1.82 x10^3/uL (1-3.4); LYMPHOCYTES % (AUTO) 16 % (22-44); MD SCAN; MONOCYTES # (AUTO) 0.99 x10^3/uL (0.2-0.8); MONOCYTES % (AUTO) 8 % (2-9); NEUTROPHILS # (AUTO) 8.43 x10^3/uL (1.8-6.8); NEUTROPHILS % (AUTO) 72 % (42-75)
[2019-07-15 07:04] VITALS: BP 109/69
[2019-07-15] MEDS: FAMOTIDINE 20 MG TABLET PO SCH ×2 (09:47→20:37)
[2019-07-15] MEDS: POTASSIUM CHLORIDE 20 MEQ TAB.ER.PRT PO SCH (09:48)
[2019-07-15] MEDS: MULTIVITS,STRESS FORMULA 1 TABLET PO SCH (09:48)
[2019-07-15] MEDS: CLOPIDOGREL 75 MG TABLET PO SCH (09:48)
[2019-07-15] MEDS: ASCORBIC ACID 500 MG TABLET PO SCH ×2 (09:48→17:30)
[2019-07-15] MEDS: CHOLECALCIFEROL 400 UNITS TABLET PO SCH (09:48)
[2019-07-15] MEDS: LACTULOSE 20 GM/30 ML UDC PO SCH (09:48)
[2019-07-15] MEDS: INSULIN LISPRO 100 UNITS/ML, PEN SQ-INSULIN SCH ×7 (09:49→20:38)
[2019-07-15] MEDS: SODIUM CHLORIDE FLUSH 10ML SYR IVF SCH ×2 (09:50→20:38)
[2019-07-15] MEDS: INSULIN GLARGINE 100 UNITS/ML, PEN SQ-INSULIN SCH ×2 (09:51→20:38)
[2019-07-15 12:44] VITALS: BP 121/71
--- NOTE | 2019-07-15 14:50 | NUR ---
Green activity sheet initiated by EVELYN on 07/15/19: DEANDRE Rubio lift to chair Addendum: 07/15/19 at 1453 by Bushra Brown PT Amended: Links added.
[2019-07-15] MEDS: FUROSEMIDE 20 MG TABLET PO SCH (17:30)
[2019-07-15 18:50] VITALS: BP 132/67
[2019-07-15] MEDS: ATORVASTATIN 10 MG TABLET PO SCH (20:37)
[2019-07-16 01:29] VITALS: BP 145/73
[2019-07-16] MEDS: AMPICILLIN/SULBACTAM 3 GM in SODIUM CHLORIDE 0.9% 100 ML IV SCH ×3 (01:51→17:55)
[2019-07-16] MEDS: INSULIN LISPRO 100 UNITS/ML, PEN SQ-INSULIN SCH ×7 (07:26→20:56)
[2019-07-16] MEDS: MULTIVITS,STRESS FORMULA 1 TABLET PO SCH (07:32)
[2019-07-16] MEDS: LACTULOSE 20 GM/30 ML UDC PO SCH (07:32)
[2019-07-16] MEDS: CLOPIDOGREL 75 MG TABLET PO SCH (07:32)
[2019-07-16] MEDS: ASCORBIC ACID 500 MG TABLET PO SCH ×2 (07:32→16:47)
[2019-07-16] MEDS: CHOLECALCIFEROL 400 UNITS TABLET PO SCH (07:32)
[2019-07-16] MEDS: POTASSIUM CHLORIDE 20 MEQ TAB.ER.PRT PO SCH (07:32)
[2019-07-16] MEDS: FUROSEMIDE 20 MG TABLET PO SCH ×2 (07:32→16:47)
[2019-07-16] MEDS: SODIUM CHLORIDE FLUSH 10ML SYR IVF SCH ×2 (07:33→20:43)
[2019-07-16] MEDS: FAMOTIDINE 20 MG TABLET PO SCH ×2 (07:33→20:43)
[2019-07-16] MEDS: INSULIN GLARGINE 100 UNITS/ML, PEN SQ-INSULIN SCH ×3 (07:33→20:53)
[2019-07-16 08:39] VITALS: BP 102/61
[2019-07-16 13:32] VITALS: BP 133/65
[2019-07-16 19:57] VITALS: BP 138/76
[2019-07-16] MEDS: ATORVASTATIN 10 MG TABLET PO SCH (20:43)
[2019-07-17 00:54] VITALS: BP 143/74
[2019-07-17] MEDS: AMPICILLIN/SULBACTAM 3 GM in SODIUM CHLORIDE 0.9% 100 ML IV SCH ×3 (02:23→17:43)
[2019-07-17 05:02] LABS: MEAN CORPUSCULAR HEMOGLOBIN 28.3 pg (27.5-34.5); MEAN CORPUSCULAR HGB CONC 32.6 g/dL (33.2-36.2); MEAN CORPUSCULAR VOLUME 86.8 fL (81-97); MEAN PLATELET VOLUME 7.8 fL (7.4-10.4); PLATELET COUNT 740 x10^3/uL (130-400); RED BLOOD COUNT 2.89 x10^6/uL (4.38-5.82); RED CELL DISTRIBUTION WIDTH 20.4 % (9.4-14.8)
[2019-07-17 05:52] LABS: BASOPHILS # (AUTO) 0.09 x10^3/uL (0-0.1); BASOPHILS % (AUTO) 1 % (0-1); EOSINOPHILS # (AUTO) 0.35 x10^3/uL (0-0.4); EOSINOPHILS % (AUTO) 3 % (1-7); LYMPHOCYTES # (AUTO) 2.35 x10^3/uL (1-3.4); LYMPHOCYTES % (AUTO) 22 % (22-44); MD MORPH REVIEW ONLY; MONOCYTES # (AUTO) 1.02 x10^3/uL (0.2-0.8); MONOCYTES % (AUTO) 9 % (2-9); NEUTROPHILS # (AUTO) 7.06 x10^3/uL (1.8-6.8); NEUTROPHILS % (AUTO) 65 % (42-75)
[2019-07-17 05:54] LABS: ACANTHOCYTES 1+; ANISOCYTOSIS 2+; ECHINOCYTES 1+; HYPOCHROMIA 1+; POLYCHROMASIA 1+
[2019-07-17 05:55] LABS: <PLATELET ESTIMATE> INCREASED; <PLT MORPHOLOGY> NORMAL PLT MORPH
[2019-07-17] MEDS: INSULIN LISPRO 100 UNITS/ML, PEN SQ-INSULIN SCH ×7 (07:00→21:17)
[2019-07-17 07:37] VITALS: BP 145/86
[2019-07-17] MEDS: INSULIN GLARGINE 100 UNITS/ML, PEN SQ-INSULIN SCH ×2 (08:10→21:18)
[2019-07-17] MEDS: MULTIVITS,STRESS FORMULA 1 TABLET PO SCH (08:10)
[2019-07-17] MEDS: FUROSEMIDE 20 MG TABLET PO SCH ×2 (08:10→17:43)
[2019-07-17] MEDS: POTASSIUM CHLORIDE 20 MEQ TAB.ER.PRT PO SCH (08:10)
[2019-07-17] MEDS: ASCORBIC ACID 500 MG TABLET PO SCH ×2 (08:10→17:42)
[2019-07-17] MEDS: LACTULOSE 20 GM/30 ML UDC PO SCH (08:11)
[2019-07-17] MEDS: SODIUM CHLORIDE FLUSH 10ML SYR IVF SCH ×2 (08:11→21:16)
[2019-07-17] MEDS: CLOPIDOGREL 75 MG TABLET PO SCH (08:11)
[2019-07-17] MEDS: CHOLECALCIFEROL 400 UNITS TABLET PO SCH (08:11)
[2019-07-17] MEDS: FAMOTIDINE 20 MG TABLET PO SCH ×2 (08:11→21:14)
[2019-07-17 13:20] VITALS: BP 120/72
[2019-07-17 19:09] VITALS: BP 138/74
[2019-07-17] MEDS: ATORVASTATIN 10 MG TABLET PO SCH (21:14)
[2019-07-17] MEDS: POLYETHYLENE GLYCOL 17 GM PACKET PO PRN (21:15)
[2019-07-18 00:07] VITALS: BP 129/74
[2019-07-18] MEDS: AMPICILLIN/SULBACTAM 3 GM in SODIUM CHLORIDE 0.9% 100 ML IV SCH ×3 (01:58→18:10)
[2019-07-18 07:53] VITALS: BP 117/72
[2019-07-18] MEDS: INSULIN LISPRO 100 UNITS/ML, PEN SQ-INSULIN SCH ×7 (08:15→21:02)
[2019-07-18] MEDS: CHOLECALCIFEROL 400 UNITS TABLET PO SCH (09:33)
[2019-07-18] MEDS: CLOPIDOGREL 75 MG TABLET PO SCH (09:33)
[2019-07-18] MEDS: FAMOTIDINE 20 MG TABLET PO SCH ×2 (09:33→20:40)
[2019-07-18] MEDS: MULTIVITS,STRESS FORMULA 1 TABLET PO SCH (09:33)
[2019-07-18] MEDS: FUROSEMIDE 20 MG TABLET PO SCH ×2 (09:33→17:03)
[2019-07-18] MEDS: POTASSIUM CHLORIDE 20 MEQ TAB.ER.PRT PO SCH (09:33)
[2019-07-18] MEDS: ASCORBIC ACID 500 MG TABLET PO SCH ×2 (09:33→17:03)
[2019-07-18] MEDS: LACTULOSE 20 GM/30 ML UDC PO SCH (09:34)
[2019-07-18] MEDS: SODIUM CHLORIDE FLUSH 10ML SYR IVF SCH ×2 (09:34→20:40)
[2019-07-18] MEDS: INSULIN GLARGINE 100 UNITS/ML, PEN SQ-INSULIN SCH ×2 (09:46→21:01)
[2019-07-18 13:21] VITALS: BP 124/73
[2019-07-18 19:00] VITALS: BP 123/56
[2019-07-18] MEDS: ATORVASTATIN 10 MG TABLET PO SCH (20:40)
[2019-07-18] MEDS: POLYETHYLENE GLYCOL 17 GM PACKET PO PRN (21:08)
[2019-07-19 00:54] VITALS: BP 114/61
[2019-07-19] MEDS: AMPICILLIN/SULBACTAM 3 GM in SODIUM CHLORIDE 0.9% 100 ML IV SCH ×3 (01:42→17:56)
[2019-07-19 04:40] LABS: MEAN CORPUSCULAR HEMOGLOBIN 28.1 pg (27.5-34.5); MEAN CORPUSCULAR HGB CONC 32.3 g/dL (33.2-36.2); MEAN CORPUSCULAR VOLUME 87.2 fL (81-97); MEAN PLATELET VOLUME 7.4 fL (7.4-10.4); PLATELET COUNT 734 x10^3/uL (130-400); RED BLOOD COUNT 2.98 x10^6/uL (4.38-5.82); RED CELL DISTRIBUTION WIDTH 20.4 % (9.4-14.8)
[2019-07-19 04:49] LABS: ALBUMIN 1.4 g/dL (3.4-5.0); ANION GAP 8 mmol/L (5-15); CALCIUM 7.7 mg/dL (8.5-10.1); CHLORIDE 106 mmol/L (98-107)
[2019-07-19 04:53] LABS: ALANINE AMINOTRANSFERASE 15 U/L (12-78); ALKALINE PHOSPHATASE 118 U/L (45-117); BILIRUBIN,TOTAL 0.3 mg/dL (0.2-1.0); CREATININE 1.16 mg/dL (0.7-1.3)
[2019-07-19 05:01] LABS: BASOPHILS # (AUTO) 0.11 x10^3/uL (0-0.1); BASOPHILS % (AUTO) 1 % (0-1); EOSINOPHILS # (AUTO) 0.39 x10^3/uL (0-0.4); EOSINOPHILS % (AUTO) 3 % (1-7); LYMPHOCYTES # (AUTO) 3.12 x10^3/uL (1-3.4); LYMPHOCYTES % (AUTO) 27 % (22-44); MD MORPH REVIEW ONLY; MONOCYTES # (AUTO) 1.28 x10^3/uL (0.2-0.8); MONOCYTES % (AUTO) 11 % (2-9); NEUTROPHILS # (AUTO) 6.71 x10^3/uL (1.8-6.8); NEUTROPHILS % (AUTO) 58 % (42-75)
[2019-07-19 05:02] LABS: ACANTHOCYTES 1+; ANISOCYTOSIS 1+; ECHINOCYTES 1+; HYPOCHROMIA 1+; POLYCHROMASIA 1+
[2019-07-19 05:03] LABS: <PLATELET ESTIMATE> INCREASED; TARGET CELLS 1+
[2019-07-19 05:04] LABS: <PLT MORPHOLOGY> NORMAL PLT MORPH
[2019-07-19] MEDS: INSULIN LISPRO 100 UNITS/ML, PEN SQ-INSULIN SCH ×5 (07:00→20:53)
[2019-07-19 07:17] VITALS: BP 110/64
[2019-07-19] MEDS: LACTULOSE 20 GM/30 ML UDC PO SCH (08:11)
[2019-07-19] MEDS: CHOLECALCIFEROL 400 UNITS TABLET PO SCH (08:11)
[2019-07-19] MEDS: MULTIVITS,STRESS FORMULA 1 TABLET PO SCH (08:11)
[2019-07-19] MEDS: CLOPIDOGREL 75 MG TABLET PO SCH (08:11)
[2019-07-19] MEDS: FAMOTIDINE 20 MG TABLET PO SCH ×2 (08:11→20:49)
[2019-07-19] MEDS: ASCORBIC ACID 500 MG TABLET PO SCH ×2 (08:11→16:23)
[2019-07-19] MEDS: FUROSEMIDE 20 MG TABLET PO SCH ×2 (08:11→16:23)
[2019-07-19] MEDS: POTASSIUM CHLORIDE 20 MEQ TAB.ER.PRT PO SCH (08:11)
[2019-07-19] MEDS: ACETAMINOPHEN 325 MG TABLET PO PRN (08:15)
[2019-07-19] MEDS: SODIUM CHLORIDE FLUSH 10ML SYR IVF SCH ×2 (10:46→20:49)
[2019-07-19] MEDS: INSULIN GLARGINE 100 UNITS/ML, PEN SQ-INSULIN SCH ×2 (11:30→20:52)
[2019-07-19 12:41] VITALS: BP 102/66
[2019-07-19 18:46] VITALS: BP 118/62
[2019-07-19] MEDS: ATORVASTATIN 10 MG TABLET PO SCH (20:49)
[2019-07-20 02:40] VITALS: BP 120/68
[2019-07-20] MEDS: AMPICILLIN/SULBACTAM 3 GM in SODIUM CHLORIDE 0.9% 100 ML IV SCH ×3 (02:45→17:18)
[2019-07-20 04:15] LABS: MEAN CORPUSCULAR HGB CONC 33.5 g/dL (33.2-36.2); MEAN CORPUSCULAR VOLUME 86.6 fL (81-97); MEAN PLATELET VOLUME 7.7 fL (7.4-10.4); PLATELET COUNT 732 x10^3/uL (130-400); RED BLOOD COUNT 2.76 x10^6/uL (4.38-5.82); RED CELL DISTRIBUTION WIDTH 20.2 % (9.4-14.8)
[2019-07-20 04:25] LABS: ALANINE AMINOTRANSFERASE 15 U/L (12-78); ALBUMIN 1.4 g/dL (3.4-5.0); ANION GAP 7 mmol/L (5-15); CALCIUM 7.4 mg/dL (8.5-10.1); CHLORIDE 106 mmol/L (98-107); CREATININE 0.98 mg/dL (0.7-1.3)
[2019-07-20 04:29] LABS: MD YES
[2019-07-20 04:31] LABS: ANISOCYTOSIS 1+; BAND#(MANUAL) 0.23 x10^3/uL; BANDS%(MANUAL) 2 % (0-7); ECHINOCYTES 1+; EOS#(MANUAL) 0.47 x10^3/uL (0.0-0.4); EOS% (MANUAL) 4 % (1-7); HYPOCHROMIA 1+; LYMPH#(MANUAL) 2.46 x10^3/uL (1-3.4); LYMPHS% (MANUAL) 21 % (22-44); MICROCYTOSIS 1+; MONOS#(MANUAL) 1.76 x10^3/uL (0.3-2.7); MONOS% (MANUAL) 15 % (2-9); OVALOCYTES 1+; POLYCHROMASIA 1+; SEG#(MANUAL) 6.79 x10^3/uL (1.8-6.8); SEGS% (MANUAL) 58 % (42-75)
[2019-07-20 04:32] LABS: <PLATELET ESTIMATE> INCREASED; <PLT MORPHOLOGY> NORMAL PLT MORPH; ALKALINE PHOSPHATASE 111 U/L (45-117); BILIRUBIN,TOTAL 0.1 mg/dL (0.2-1.0); TARGET CELLS 1+; TOTAL PROTEIN 6.1 g/dL (6.4-8.2)
[2019-07-20] MEDS: INSULIN LISPRO 100 UNITS/ML, PEN SQ-INSULIN SCH ×4 (07:00→21:46)
[2019-07-20 07:30] VITALS: BP 106/63
[2019-07-20] MEDS: INSULIN GLARGINE 100 UNITS/ML, PEN SQ-INSULIN SCH ×2 (08:51→21:48)
[2019-07-20] MEDS: MULTIVITS,STRESS FORMULA 1 TABLET PO SCH (08:52)
[2019-07-20] MEDS: ASCORBIC ACID 500 MG TABLET PO SCH ×2 (08:52→17:18)
[2019-07-20] MEDS: POTASSIUM CHLORIDE 20 MEQ TAB.ER.PRT PO SCH (08:52)
[2019-07-20] MEDS: FUROSEMIDE 20 MG TABLET PO SCH ×2 (08:52→17:18)
[2019-07-20] MEDS: CHOLECALCIFEROL 400 UNITS TABLET PO SCH (08:52)
[2019-07-20] MEDS: FAMOTIDINE 20 MG TABLET PO SCH ×2 (08:52→21:42)
[2019-07-20] MEDS: CLOPIDOGREL 75 MG TABLET PO SCH (08:52)
[2019-07-20] MEDS: SODIUM CHLORIDE FLUSH 10ML SYR IVF SCH ×2 (08:54→21:42)
[2019-07-20] MEDS: LACTULOSE 20 GM/30 ML UDC PO SCH (08:54)
[2019-07-20 13:44] VITALS: BP 149/72
[2019-07-20 18:59] VITALS: BP 114/67
[2019-07-20] MEDS: ATORVASTATIN 10 MG TABLET PO SCH (21:42)
[2019-07-21 01:05] VITALS: BP 115/63
[2019-07-21] MEDS: AMPICILLIN/SULBACTAM 3 GM in SODIUM CHLORIDE 0.9% 100 ML IV SCH ×3 (02:24→20:04)
[2019-07-21 05:15] LABS: BASOPHILS # (AUTO) 0.13 x10^3/uL (0-0.1); BASOPHILS % (AUTO) 1 % (0-1); EOSINOPHILS # (AUTO) 0.35 x10^3/uL (0-0.4); EOSINOPHILS % (AUTO) 3 % (1-7); LYMPHOCYTES # (AUTO) 3.14 x10^3/uL (1-3.4); LYMPHOCYTES % (AUTO) 30 % (22-44); MD NO; MEAN CORPUSCULAR HEMOGLOBIN 28.6 pg (27.5-34.5); MEAN CORPUSCULAR VOLUME 86.5 fL (81-97); MEAN PLATELET VOLUME 7.9 fL (7.4-10.4); MONOCYTES # (AUTO) 1.25 x10^3/uL (0.2-0.8); MONOCYTES % (AUTO) 12 % (2-9); NEUTROPHILS # (AUTO) 5.71 x10^3/uL (1.8-6.8); NEUTROPHILS % (AUTO) 54 % (42-75); PLATELET COUNT 712 x10^3/uL (130-400); RED CELL DISTRIBUTION WIDTH 20.2 % (9.4-14.8)
[2019-07-21 05:26] LABS: CALCIUM 7.9 mg/dL (8.5-10.1); CHLORIDE 106 mmol/L (98-107)
[2019-07-21 05:32] LABS: ALANINE AMINOTRANSFERASE 16 U/L (12-78); ALBUMIN 1.5 g/dL (3.4-5.0); ALKALINE PHOSPHATASE 115 U/L (45-117); ANION GAP 5 mmol/L (5-15); BILIRUBIN,TOTAL 0.3 mg/dL (0.2-1.0); CREATININE 0.94 mg/dL (0.7-1.3); TOTAL PROTEIN 6.5 g/dL (6.4-8.2)
[2019-07-21] MEDS: INSULIN LISPRO 100 UNITS/ML, PEN SQ-INSULIN SCH ×4 (07:00→20:14)
[2019-07-21 08:38] VITALS: BP 99/55
[2019-07-21] MEDS: INSULIN GLARGINE 100 UNITS/ML, PEN SQ-INSULIN SCH ×3 (09:00→20:15)
[2019-07-21] MEDS: SODIUM CHLORIDE FLUSH 10ML SYR IVF SCH ×2 (09:00→20:15)
[2019-07-21] MEDS: CHOLECALCIFEROL 400 UNITS TABLET PO SCH (09:54)
[2019-07-21] MEDS: POTASSIUM CHLORIDE 20 MEQ TAB.ER.PRT PO SCH (09:54)
[2019-07-21] MEDS: FUROSEMIDE 20 MG TABLET PO SCH ×2 (09:54→17:12)
[2019-07-21] MEDS: MULTIVITS,STRESS FORMULA 1 TABLET PO SCH (09:54)
[2019-07-21] MEDS: CLOPIDOGREL 75 MG TABLET PO SCH (09:54)
[2019-07-21] MEDS: ASCORBIC ACID 500 MG TABLET PO SCH ×2 (09:54→17:13)
[2019-07-21] MEDS: LACTULOSE 20 GM/30 ML UDC PO SCH (09:54)
[2019-07-21] MEDS: FAMOTIDINE 20 MG TABLET PO SCH ×2 (09:55→20:14)
[2019-07-21 13:07] VITALS: BP 115/63
[2019-07-21 13:11] VITALS: BP 116/77
[2019-07-21 19:04] VITALS: BP 132/73
[2019-07-21] MEDS: ATORVASTATIN 10 MG TABLET PO SCH (20:13)
[2019-07-22 01:19] VITALS: BP 123/71
[2019-07-22] MEDS: AMPICILLIN/SULBACTAM 3 GM in SODIUM CHLORIDE 0.9% 100 ML IV SCH ×3 (04:17→18:24)
[2019-07-22 04:50] LABS: BASOPHILS # (AUTO) 0.08 x10^3/uL (0-0.1); BASOPHILS % (AUTO) 1 % (0-1); EOSINOPHILS # (AUTO) 0.44 x10^3/uL (0-0.4); EOSINOPHILS % (AUTO) 4 % (1-7); LYMPHOCYTES # (AUTO) 3.42 x10^3/uL (1-3.4); LYMPHOCYTES % (AUTO) 30 % (22-44); MD NO; MEAN CORPUSCULAR HEMOGLOBIN 28.7 pg (27.5-34.5); MEAN CORPUSCULAR HGB CONC 33.2 g/dL (33.2-36.2); MEAN CORPUSCULAR VOLUME 86.4 fL (81-97); MEAN PLATELET VOLUME 7.9 fL (7.4-10.4); MONOCYTES # (AUTO) 1.36 x10^3/uL (0.2-0.8); MONOCYTES % (AUTO) 12 % (2-9); NEUTROPHILS # (AUTO) 5.99 x10^3/uL (1.8-6.8); NEUTROPHILS % (AUTO) 53 % (42-75); PLATELET COUNT 710 x10^3/uL (130-400); RED BLOOD COUNT 2.72 x10^6/uL (4.38-5.82); RED CELL DISTRIBUTION WIDTH 20.8 % (9.4-14.8)
[2019-07-22] MEDS: INSULIN LISPRO 100 UNITS/ML, PEN SQ-INSULIN SCH ×4 (07:00→21:15)
[2019-07-22 07:01] VITALS: BP 117/62
[2019-07-22] MEDS: MULTIVITS,STRESS FORMULA 1 TABLET PO SCH (07:56)
[2019-07-22] MEDS: ASCORBIC ACID 500 MG TABLET PO SCH ×2 (07:56→15:59)
[2019-07-22] MEDS: POTASSIUM CHLORIDE 20 MEQ TAB.ER.PRT PO SCH (07:57)
[2019-07-22] MEDS: CHOLECALCIFEROL 400 UNITS TABLET PO SCH (07:57)
[2019-07-22] MEDS: CLOPIDOGREL 75 MG TABLET PO SCH (07:57)
[2019-07-22] MEDS: FAMOTIDINE 20 MG TABLET PO SCH ×2 (07:58→21:14)
[2019-07-22] MEDS: FUROSEMIDE 20 MG TABLET PO SCH ×2 (07:58→15:59)
[2019-07-22] MEDS: LACTULOSE 20 GM/30 ML UDC PO SCH (07:58)
[2019-07-22] MEDS: SODIUM CHLORIDE FLUSH 10ML SYR IVF SCH ×2 (07:59→21:16)
[2019-07-22] MEDS: INSULIN GLARGINE 100 UNITS/ML, PEN SQ-INSULIN SCH ×2 (08:14→21:15)
[2019-07-22 12:45] VITALS: BP 112/68
[2019-07-22 19:00] VITALS: BP 124/73
[2019-07-22] MEDS: ATORVASTATIN 10 MG TABLET PO SCH (21:14)
[2019-07-23 00:30] VITALS: BP 125/68
[2019-07-23] MEDS: AMPICILLIN/SULBACTAM 3 GM in SODIUM CHLORIDE 0.9% 100 ML IV SCH ×3 (01:13→16:23)
[2019-07-23 06:49] VITALS: BP 107/65
[2019-07-23] MEDS: INSULIN LISPRO 100 UNITS/ML, PEN SQ-INSULIN SCH ×4 (08:23→21:03)
[2019-07-23] MEDS: INSULIN GLARGINE 100 UNITS/ML, PEN SQ-INSULIN SCH (08:24)
[2019-07-23] MEDS: CHOLECALCIFEROL 400 UNITS TABLET PO SCH (08:26)
[2019-07-23] MEDS: MULTIVITS,STRESS FORMULA 1 TABLET PO SCH (08:26)
[2019-07-23] MEDS: FAMOTIDINE 20 MG TABLET PO SCH ×2 (08:26→21:02)
[2019-07-23] MEDS: CLOPIDOGREL 75 MG TABLET PO SCH (08:26)
[2019-07-23] MEDS: ASCORBIC ACID 500 MG TABLET PO SCH ×2 (08:26→16:23)
[2019-07-23] MEDS: POTASSIUM CHLORIDE 20 MEQ TAB.ER.PRT PO SCH (08:26)
[2019-07-23] MEDS: FUROSEMIDE 20 MG TABLET PO SCH ×2 (08:26→16:23)
[2019-07-23] MEDS: LACTULOSE 20 GM/30 ML UDC PO SCH (08:27)
[2019-07-23] MEDS: SODIUM CHLORIDE FLUSH 10ML SYR IVF SCH ×2 (08:27→21:06)
[2019-07-23 13:12] VITALS: BP 103/65
[2019-07-23 18:36] VITALS: BP 126/71
[2019-07-23] MEDS ORDERED: INSULIN GLARGINE 100 UNITS/ML, PEN SQ-INSULIN SCH (21:00)
[2019-07-23] MEDS: ATORVASTATIN 10 MG TABLET PO SCH (21:02)
[2019-07-24 00:06] VITALS: BP 117/69
[2019-07-24] MEDS: AMPICILLIN/SULBACTAM 3 GM in SODIUM CHLORIDE 0.9% 100 ML IV SCH ×3 (00:25→16:04)
[2019-07-24 05:13] LABS: BASOPHILS # (AUTO) 0.09 x10^3/uL (0-0.1); BASOPHILS % (AUTO) 1 % (0-1); EOSINOPHILS # (AUTO) 0.36 x10^3/uL (0-0.4); EOSINOPHILS % (AUTO) 3 % (1-7); LYMPHOCYTES # (AUTO) 3.77 x10^3/uL (1-3.4); LYMPHOCYTES % (AUTO) 33 % (22-44); MD NO; MEAN CORPUSCULAR HEMOGLOBIN 28.8 pg (27.5-34.5); MEAN CORPUSCULAR HGB CONC 33.1 g/dL (33.2-36.2); MEAN CORPUSCULAR VOLUME 87.2 fL (81-97); MEAN PLATELET VOLUME 7.8 fL (7.4-10.4); MONOCYTES # (AUTO) 1.42 x10^3/uL (0.2-0.8); MONOCYTES % (AUTO) 12 % (2-9); NEUTROPHILS # (AUTO) 5.82 x10^3/uL (1.8-6.8); NEUTROPHILS % (AUTO) 51 % (42-75); PLATELET COUNT 711 x10^3/uL (130-400); RED BLOOD COUNT 2.72 x10^6/uL (4.38-5.82); RED CELL DISTRIBUTION WIDTH 20.4 % (9.4-14.8)
[2019-07-24 05:17] LABS: ALANINE AMINOTRANSFERASE 17 U/L (12-78); ALBUMIN 1.7 g/dL (3.4-5.0); ANION GAP 4 mmol/L (5-15); CALCIUM 7.9 mg/dL (8.5-10.1); CHLORIDE 107 mmol/L (98-107); CREATININE 0.98 mg/dL (0.7-1.3)
[2019-07-24 05:19] LABS: ALKALINE PHOSPHATASE 119 U/L (45-117); BILIRUBIN,TOTAL < 0.1 mg/dL (0.2-1.0); TOTAL PROTEIN 6.8 g/dL (6.4-8.2)
[2019-07-24] MEDS: INSULIN LISPRO 100 UNITS/ML, PEN SQ-INSULIN SCH ×4 (07:00→21:00)
[2019-07-24 07:17] VITALS: BP 111/64
[2019-07-24] MEDS: INSULIN GLARGINE 100 UNITS/ML, PEN SQ-INSULIN SCH (08:22)
[2019-07-24] MEDS: MULTIVITS,STRESS FORMULA 1 TABLET PO SCH (08:23)
[2019-07-24] MEDS: FUROSEMIDE 20 MG TABLET PO SCH ×2 (08:23→16:27)
[2019-07-24] MEDS: ASCORBIC ACID 500 MG TABLET PO SCH ×2 (08:23→16:27)
[2019-07-24] MEDS: CLOPIDOGREL 75 MG TABLET PO SCH (08:23)
[2019-07-24] MEDS: FAMOTIDINE 20 MG TABLET PO SCH ×2 (08:23→20:59)
[2019-07-24] MEDS: LACTULOSE 20 GM/30 ML UDC PO SCH (08:23)
[2019-07-24] MEDS: POTASSIUM CHLORIDE 20 MEQ TAB.ER.PRT PO SCH (08:23)
[2019-07-24] MEDS: CHOLECALCIFEROL 400 UNITS TABLET PO SCH (08:23)
[2019-07-24] MEDS: SODIUM CHLORIDE FLUSH 10ML SYR IVF SCH ×2 (08:24→21:01)
[2019-07-24] MEDS ORDERED: INSULIN GLARGINE 100 UNITS/ML, PEN SQ-INSULIN SCH ×2 (09:00→21:00)
[2019-07-24 12:29] VITALS: BP 119/71
[2019-07-24 18:36] VITALS: BP 119/70
[2019-07-24] MEDS: ATORVASTATIN 10 MG TABLET PO SCH (20:59)
[2019-07-25 00:52] VITALS: BP 109/61
[2019-07-25 05:55] LABS: BASOPHILS # (AUTO) 0.07 x10^3/uL (0-0.1); BASOPHILS % (AUTO) 1 % (0-1); EOSINOPHILS # (AUTO) 0.39 x10^3/uL (0-0.4); EOSINOPHILS % (AUTO) 3 % (1-7); LYMPHOCYTES # (AUTO) 4.01 x10^3/uL (1-3.4); LYMPHOCYTES % (AUTO) 32 % (22-44); MD NO; MEAN CORPUSCULAR HEMOGLOBIN 28.6 pg (27.5-34.5); MEAN CORPUSCULAR HGB CONC 32.7 g/dL (33.2-36.2); MEAN CORPUSCULAR VOLUME 87.6 fL (81-97); MEAN PLATELET VOLUME 7.8 fL (7.4-10.4); MONOCYTES % (AUTO) 10 % (2-9); NEUTROPHILS # (AUTO) 6.68 x10^3/uL (1.8-6.8); NEUTROPHILS % (AUTO) 54 % (42-75); PLATELET COUNT 721 x10^3/uL (130-400); RED BLOOD COUNT 2.89 x10^6/uL (4.38-5.82); RED CELL DISTRIBUTION WIDTH 20.2 % (9.4-14.8)
[2019-07-25] MEDS: INSULIN LISPRO 100 UNITS/ML, PEN SQ-INSULIN SCH ×4 (07:00→22:00)
[2019-07-25 07:05] VITALS: BP 108/62
[2019-07-25] MEDS: MULTIVITS,STRESS FORMULA 1 TABLET PO SCH (08:01)
[2019-07-25] MEDS: FAMOTIDINE 20 MG TABLET PO SCH ×2 (08:01→21:58)
[2019-07-25] MEDS: POTASSIUM CHLORIDE 20 MEQ TAB.ER.PRT PO SCH (08:01)
[2019-07-25] MEDS: CLOPIDOGREL 75 MG TABLET PO SCH (08:01)
[2019-07-25] MEDS: ASCORBIC ACID 500 MG TABLET PO SCH ×2 (08:01→16:45)
[2019-07-25] MEDS: LACTULOSE 20 GM/30 ML UDC PO SCH (08:02)
[2019-07-25] MEDS: SODIUM CHLORIDE FLUSH 10ML SYR IVF SCH ×2 (08:02→21:58)
[2019-07-25] MEDS: CHOLECALCIFEROL 400 UNITS TABLET PO SCH (08:02)
[2019-07-25] MEDS: FUROSEMIDE 20 MG TABLET PO SCH ×2 (08:02→16:45)
[2019-07-25] MEDS ORDERED: INSULIN GLARGINE 100 UNITS/ML, PEN SQ-INSULIN SCH ×2 (09:00→21:00)
[2019-07-25] MEDS: AMPICILLIN/SULBACTAM 3 GM in SODIUM CHLORIDE 0.9% 100 ML IV SCH ×3 (10:19→16:45)
[2019-07-25 12:31] VITALS: BP 99/62
[2019-07-25 19:18] VITALS: BP 122/63
[2019-07-25] MEDS: ATORVASTATIN 10 MG TABLET PO SCH (21:59)
[2019-07-26] MEDS: AMPICILLIN/SULBACTAM 3 GM in SODIUM CHLORIDE 0.9% 100 ML IV SCH (00:03)
[2019-07-26 00:04] VITALS: BP 100/62
[2019-07-26 06:58] VITALS: BP 107/65
[2019-07-26] MEDS: INSULIN LISPRO 100 UNITS/ML, PEN SQ-INSULIN SCH ×4 (07:00→22:26)
[2019-07-26] MEDS: FAMOTIDINE 20 MG TABLET PO SCH ×2 (08:38→19:57)
[2019-07-26] MEDS: POTASSIUM CHLORIDE 20 MEQ TAB.ER.PRT PO SCH (08:38)
[2019-07-26] MEDS: LACTULOSE 20 GM/30 ML UDC PO SCH (08:38)
[2019-07-26] MEDS: CLOPIDOGREL 75 MG TABLET PO SCH (08:38)
[2019-07-26] MEDS: FUROSEMIDE 20 MG TABLET PO SCH ×2 (08:39→16:50)
[2019-07-26] MEDS: SODIUM CHLORIDE FLUSH 10ML SYR IVF SCH ×2 (08:39→19:57)
[2019-07-26] MEDS: ASCORBIC ACID 500 MG TABLET PO SCH ×2 (08:39→16:49)
[2019-07-26] MEDS: CHOLECALCIFEROL 400 UNITS TABLET PO SCH (08:39)
[2019-07-26] MEDS: MULTIVITS,STRESS FORMULA 1 TABLET PO SCH (08:40)
[2019-07-26] MEDS ORDERED: INSULIN GLARGINE 100 UNITS/ML, PEN SQ-INSULIN SCH (09:00)
[2019-07-26] MEDS ORDERED: CEPHALEXIN 500 MG CAPSULE PO SCH (12:00)
[2019-07-26 12:34] VITALS: BP 96/58
[2019-07-26] MEDS: AMOXICILLIN/CLAV 875-125MG TABLET PO SCH (16:49)
[2019-07-26 19:20] VITALS: BP 109/65
[2019-07-26] MEDS: ATORVASTATIN 10 MG TABLET PO SCH (19:57)
[2019-07-26] MEDS: INSULIN GLARGINE 100 UNITS/ML, PEN SQ-INSULIN SCH (22:25)
[2019-07-27 00:17] VITALS: BP 97/64
[2019-07-27] MEDS: AMOXICILLIN/CLAV 875-125MG TABLET PO SCH ×3 (00:25→16:14)
[2019-07-27 03:26] LABS: HCT (SEDRATE) 27.1 % (39.2-51.8)
[2019-07-27 03:38] LABS: BASOPHILS # (AUTO) 0.12 x10^3/uL (0-0.1); BASOPHILS % (AUTO) 1 % (0-1); EOSINOPHILS # (AUTO) 0.34 x10^3/uL (0-0.4); EOSINOPHILS % (AUTO) 3 % (1-7); LYMPHOCYTES # (AUTO) 3.87 x10^3/uL (1-3.4); LYMPHOCYTES % (AUTO) 32 % (22-44); MD NO; MEAN CORPUSCULAR HEMOGLOBIN 28.8 pg (27.5-34.5); MEAN CORPUSCULAR VOLUME 87.2 fL (81-97); MEAN PLATELET VOLUME 7.9 fL (7.4-10.4); MONOCYTES # (AUTO) 1.34 x10^3/uL (0.2-0.8); MONOCYTES % (AUTO) 11 % (2-9); NEUTROPHILS # (AUTO) 6.29 x10^3/uL (1.8-6.8); NEUTROPHILS % (AUTO) 53 % (42-75); PLATELET COUNT 694 x10^3/uL (130-400); RED BLOOD COUNT 3.08 x10^6/uL (4.38-5.82); RED CELL DISTRIBUTION WIDTH 20.4 % (9.4-14.8)
[2019-07-27 03:39] LABS: ALANINE AMINOTRANSFERASE 26 U/L (12-78); ALBUMIN 1.9 g/dL (3.4-5.0); ANION GAP 7 mmol/L (5-15); CALCIUM 8.1 mg/dL (8.5-10.1); CHLORIDE 105 mmol/L (98-107); CREATININE 0.94 mg/dL (0.7-1.3)
[2019-07-27 03:46] LABS: ALKALINE PHOSPHATASE 125 U/L (45-117); BILIRUBIN,TOTAL 0.2 mg/dL (0.2-1.0); TOTAL PROTEIN 7.3 g/dL (6.4-8.2)
[2019-07-27] MEDS: INSULIN LISPRO 100 UNITS/ML, PEN SQ-INSULIN SCH ×4 (07:00→20:10)
[2019-07-27 08:06] VITALS: BP 101/60
[2019-07-27] MEDS: CLOPIDOGREL 75 MG TABLET PO SCH (09:00)
[2019-07-27] MEDS: LACTULOSE 20 GM/30 ML UDC PO SCH (09:00)
[2019-07-27] MEDS: FAMOTIDINE 20 MG TABLET PO SCH ×2 (09:00→20:10)
[2019-07-27] MEDS: ASCORBIC ACID 500 MG TABLET PO SCH ×2 (09:00→16:14)
[2019-07-27] MEDS: CHOLECALCIFEROL 400 UNITS TABLET PO SCH (09:00)
[2019-07-27] MEDS: POTASSIUM CHLORIDE 20 MEQ TAB.ER.PRT PO SCH (09:00)
[2019-07-27] MEDS: MULTIVITS,STRESS FORMULA 1 TABLET PO SCH (09:00)
[2019-07-27] MEDS: INSULIN GLARGINE 100 UNITS/ML, PEN SQ-INSULIN SCH ×2 (09:00→20:10)
[2019-07-27] MEDS: FUROSEMIDE 20 MG TABLET PO SCH ×2 (09:01→15:51)
[2019-07-27] MEDS: SODIUM CHLORIDE FLUSH 10ML SYR IVF SCH ×2 (09:01→20:10)
[2019-07-27 12:47] VITALS: BP_SYST 80; BP_SYST 85; BP_DIAS 51; BP_DIAS 54
[2019-07-27 19:21] VITALS: BP_SYST 110; BP_SYST 99; BP_DIAS 65; BP_DIAS 67
[2019-07-27] MEDS: ATORVASTATIN 10 MG TABLET PO SCH (20:10)
[2019-07-28] MEDS: AMOXICILLIN/CLAV 875-125MG TABLET PO SCH ×2 (00:46→08:12)
[2019-07-28 00:55] VITALS: BP 122/72
[2019-07-28] MEDS: INSULIN LISPRO 100 UNITS/ML, PEN SQ-INSULIN SCH ×2 (07:00→11:27)
[2019-07-28] MEDS: ASCORBIC ACID 500 MG TABLET PO SCH (08:12)
[2019-07-28] MEDS: CHOLECALCIFEROL 400 UNITS TABLET PO SCH (08:12)
[2019-07-28] MEDS: MULTIVITS,STRESS FORMULA 1 TABLET PO SCH (08:12)
[2019-07-28] MEDS: LACTULOSE 20 GM/30 ML UDC PO SCH (08:12)
[2019-07-28] MEDS: INSULIN GLARGINE 100 UNITS/ML, PEN SQ-INSULIN SCH (08:12)
[2019-07-28] MEDS: CLOPIDOGREL 75 MG TABLET PO SCH (08:12)
[2019-07-28] MEDS: FUROSEMIDE 20 MG TABLET PO SCH (08:12)
[2019-07-28] MEDS: POTASSIUM CHLORIDE 20 MEQ TAB.ER.PRT PO SCH (08:12)
[2019-07-28] MEDS: SODIUM CHLORIDE FLUSH 10ML SYR IVF SCH (08:13)
[2019-07-28] MEDS: FAMOTIDINE 20 MG TABLET PO SCH (08:16)
[2019-07-28 08:41] VITALS: BP 99/59
[2019-07-28] MEDS ORDERED: INSULIN GLARGINE 100 UNITS/ML, PEN SQ-INSULIN SCH (09:00)
[2019-07-28] MEDS ORDERED: ATOR10TA9 PO (10:35)
[2019-07-28] MEDS ORDERED: AMOX1TAB12 PO (10:35)
[2019-07-28] MEDS ORDERED: FURO20TA3 PO (10:35)
[2019-07-28] MEDS ORDERED: FAMO20TA7 PO (10:35)
[2019-07-28] MEDS ORDERED: INSU100I13 SQ-INSULIN ×2 (10:35)
[2019-07-28] MEDS ORDERED: INSU100I11 SQ-INSULIN (10:35)
[2019-07-28] MEDS ORDERED: POTA20TA6 PO (10:35)
[2019-07-28] MEDS ORDERED: MULT1TAB76 PO (10:35)
[2019-07-28] MEDS ORDERED: CLOP75TA PO (10:35)
[2019-07-28] MEDS ORDERED: CHOL400T2 PO (10:35)
== END 2019-07-28 13:15 | DRG 853 ==
LOC: ED 17:34 → EDIP 18:08 → ICU 18:12 → 5SO 07-05 20:03 → 4NW 07-14 12:58
PROVIDERS: ADMIT Hospitalist; ATTEND Internal Medicine
PROC: 0BH17EZ Insertion of Endotracheal Airway into Trachea, Via Natural or Artificial Opening (ICD-10-PCS; principal; 2019-06-24)
PROC: 02HV33Z Insertion of Infusion Device into Superior Vena Cava, Percutaneous Approach (ICD-10-PCS; 2019-06-24)
PROC: 0DBN8ZX Excision of Sigmoid Colon, Via Natural or Artificial Opening Endoscopic, Diagnostic (ICD-10-PCS; 2019-06-26)
PROC: 8E0W4CZ Robotic Assisted Procedure of Trunk Region, Percutaneous Endoscopic Approach (ICD-10-PCS; 2019-06-26)
PROC: 0D1N4Z4 Bypass Sigmoid Colon to Cutaneous, Percutaneous Endoscopic Approach (ICD-10-PCS; 2019-07-02)
PROC: 02703DZ Dilation of Coronary Artery, One Artery with Intraluminal Device, Percutaneous Approach (ICD-10-PCS; 2019-07-10)
PROC: 4A023N7 Measurement of Cardiac Sampling and Pressure, Left Heart, Percutaneous Approach (ICD-10-PCS; 2019-07-10)
PROC: B2151ZZ Fluoroscopy of Left Heart using Low Osmolar Contrast (ICD-10-PCS; 2019-07-10)
PROC: 30233N1 Transfusion of Nonautologous Red Blood Cells into Peripheral Vein, Percutaneous Approach (ICD-10-PCS; 2019-07-13)
DX: A41.01 Sepsis due to Methicillin susceptible Staphylococcus aureus (principal); E10.10 Type 1 diabetes mellitus with ketoacidosis without coma; E43 Unspecified severe protein-calorie malnutrition; I49.01 Ventricular fibrillation; J96.01 Acute respiratory failure with hypoxia; R57.0 Cardiogenic shock; E87.0 Hyperosmolality and hypernatremia; E87.1 Hypo-osmolality and hyponatremia; I47.2 Ventricular tachycardia; K61.1 Rectal abscess; M86.9 Osteomyelitis, unspecified; N17.9 Acute kidney failure, unspecified; T25.322A Burn of third degree of left foot, initial encounter; D62 Acute posthemorrhagic anemia; Z99.11 Dependence on respirator [ventilator] status; B96.89 Other specified bacterial agents as the cause of diseases classified elsewhere; E10.40 Type 1 diabetes mellitus with diabetic neuropathy, unspecified; E10.649 Type 1 diabetes mellitus with hypoglycemia without coma; E10.69 Type 1 diabetes mellitus with other specified complication; E78.5 Hyperlipidemia, unspecified; E83.39 Other disorders of phosphorus metabolism; E87.6 Hypokalemia; I25.10 Atherosclerotic heart disease of native coronary artery without angina pectoris; D63.8 Anemia in other chronic diseases classified elsewhere; R13.10 Dysphagia, unspecified; K43.2 Incisional hernia without obstruction or gangrene; Z79.4 Long term (current) use of insulin; Z79.82 Long term (current) use of aspirin; Z82.5 Family history of asthma and other chronic lower respiratory diseases; Z85.820 Personal history of malignant melanoma of skin; Z87.891 Personal history of nicotine dependence; Z90.81 Acquired absence of spleen; Z95.5 Presence of coronary angioplasty implant and graft; Z79.899 Other long term (current) drug therapy
CPT/HCPCS: 36415; 36573; 36600; 71045; 71250; 72197; 74177; 74183; 74230; 78452; 80048; 80053; 80061; 80069; 80202; 81001; 81003; 82010; 82378; 82533; 82728; 82803; 82962; 83036; 83540; 83550; 83605; 83690; 83735; 83880; 84100; 84132; 84443; 84478; 84484; 85014; 85018; 85025; 85610; 85651; 85730; 86140; 86850; 86900; 86923; 87040; 87070; 87081; 87147; 87186; 87205; 88305; 92928; 92950; 93005; 93017; 93306; 93458; 93970; 94002; 94003; 94150; 96374; 99156; 99157; A9575; C1769; C1876; C1894; G0378; J0171; J0295; J0583; J0610; J1265; J1644; J1650; J1756; J1815; J2250; J2405; J2543; J2704; J2785; J3010; J3370; J3411; J3475; J3480; J7060; J7070; Q9967; A9502; C1725; C1751; C1887; J0282; J0330; J1200; J1720; J7030; J7040; J7050; J7120; P9016

== ENCOUNTER 2019-08-03 20:35 | Emergency (ER) | payer OTHER, MEDICARE ==
[~2019-08-03] VITALS: Ht 193 cm; Wt 76.5 kg
[~2019-08-03 20:35] MED LIST changes: +AMOX1TAB12 PO; +ATOR10TA9 PO; +CHOL400T2 PO; +CLOP75TA PO; +FAMO20TA7 PO; +FURO20TA3 PO; +INSU100I11 SQ-INSULIN; +INSU100I13 SQ-INSULIN; +MULT1TAB76 PO; +POTA20TA6 PO
[2019-08-03 21:13] LABS: BASOPHILS # (AUTO) 0.06 x10^3/uL (0-0.1); BASOPHILS % (AUTO) 0 % (0-1); EOSINOPHILS # (AUTO) 0.25 x10^3/uL (0-0.4); EOSINOPHILS % (AUTO) 1 % (1-7); LYMPHOCYTES # (AUTO) 4.59 x10^3/uL (1-3.4); LYMPHOCYTES % (AUTO) 26 % (22-44); MD NO; MEAN CORPUSCULAR HEMOGLOBIN 29.2 pg (27.5-34.5); MEAN CORPUSCULAR HGB CONC 32.9 g/dL (33.2-36.2); MEAN CORPUSCULAR VOLUME 88.6 fL (81-97); MEAN PLATELET VOLUME 7.9 fL (7.4-10.4); MONOCYTES # (AUTO) 1.44 x10^3/uL (0.2-0.8); MONOCYTES % (AUTO) 8 % (2-9); NEUTROPHILS # (AUTO) 11.47 x10^3/uL (1.8-6.8); NEUTROPHILS % (AUTO) 64 % (42-75); PLATELET COUNT 715 x10^3/uL (130-400); RED CELL DISTRIBUTION WIDTH 20.7 % (9.4-14.8)
[2019-08-03 21:27] LABS: ALBUMIN 2.2 g/dL (3.4-5.0); ANION GAP 7 mmol/L (5-15); CALCIUM 8.4 mg/dL (8.5-10.1); CHLORIDE 106 mmol/L (98-107)
[2019-08-03 21:30] LABS: ALANINE AMINOTRANSFERASE 23 U/L (12-78); ALKALINE PHOSPHATASE 131 U/L (45-117); BILIRUBIN,TOTAL 0.2 mg/dL (0.2-1.0); CREATININE 1.11 mg/dL (0.7-1.3); TOTAL PROTEIN 7.3 g/dL (6.4-8.2)
--- NOTE | 2019-08-03 22:47 | NUR ---
Pt to be discharged back to his facility via [facility]. Report called to Srinivasa HUBER at [facility].
--- NOTE | 2019-08-03 23:11 | NUR ---
TP: BENIGNO GOLDEN AT [id number]
[2019-08-04 00:01] VITALS: BP 104/59
== END 2019-08-04 00:03 | disposition home or self-care (01) ==
LOC: ED 22:01
DX: K62.5 Hemorrhage of anus and rectum (principal); D72.829 Elevated white blood cell count, unspecified; E11.9 Type 2 diabetes mellitus without complications; Z85.038 Personal history of other malignant neoplasm of large intestine
CPT/HCPCS: 36415; 80053; 85025; 86850; 86900; 99283

== ENCOUNTER 2019-08-08 14:54 | Emergency (ER) | payer MEDICARE, OTHER ==
[~2019-08-08] VITALS: Ht 193 cm; Wt 77.0 kg
--- NOTE | 2019-08-08 15:14 | NUR ---
Note undone in EDM - 08/08/19 at 1516 by ASTRID BIBNery. REPORT RRECEIVED FROM EMS. ABNORMAL LABS(LOW H&H AND RBC) FROM LONG-TERM. PT DENIES ANY SYMPTOMS. SKIN COLOR IS PALE. PT'S AOX4. RESPS EVEN AND UNLABORED. BP/SPO2 MONITORS IN PLACE. CALL LIGHT WITHIN REACH. PA AT BEDSIDE TO EVALUATE AT THIS TIME.
--- NOTE | 2019-08-08 15:16 | NUR ---
BIBA. REPORT RRECEIVED FROM EMS. ABNORMAL LABS(LOW H&H AND RBC) FROM RETIREMENT. PT DENIES ANY SYMPTOMS. SKIN COLOR IS PALE. PT'S AOX4. RESPS EVEN AND UNLABORED. BP/SPO2 MONITORS IN PLACE. CALL LIGHT WITHIN REACH. PT HAS PRESSURE WOUND ON BUTTOCK AREA WITH WOUND VAC DRESSING. PT DENIES PAIN ON BUTTOCK AND STATES" CHANGED DRESSING YESTERDAY." PA AT BEDSIDE TO EVALUATE AT THIS TIME.
[2019-08-08] MEDS ORDERED: ASPI-496 PO (15:19)
[2019-08-08] MEDS ORDERED: LOVA40TA2 PO (15:20)
[2019-08-08] MEDS ORDERED: PIOG15TA22 PO (15:20)
[2019-08-08] MEDS ORDERED: EMPA1TAB5 PO (15:21)
[2019-08-08] MEDS ORDERED: INSU100V35 SQ (15:21)
[2019-08-08] MEDS ORDERED: SODIUM CHLORIDE FLUSH 10ML SYR IVF ONE (15:30)
[2019-08-08 15:37] LABS: BASOPHILS # (AUTO) 0.05 x10^3/uL (0-0.1); BASOPHILS % (AUTO) 0 % (0-1); EOSINOPHILS # (AUTO) 0.42 x10^3/uL (0-0.4); EOSINOPHILS % (AUTO) 3 % (1-7); LYMPHOCYTES # (AUTO) 4.29 x10^3/uL (1-3.4); LYMPHOCYTES % (AUTO) 30 % (22-44); MD NO; MEAN CORPUSCULAR HEMOGLOBIN 29.2 pg (27.5-34.5); MEAN CORPUSCULAR HGB CONC 32.7 g/dL (33.2-36.2); MEAN CORPUSCULAR VOLUME 89.3 fL (81-97); MEAN PLATELET VOLUME 7.8 fL (7.4-10.4); MONOCYTES # (AUTO) 1.17 x10^3/uL (0.2-0.8); MONOCYTES % (AUTO) 8 % (2-9); NEUTROPHILS # (AUTO) 8.32 x10^3/uL (1.8-6.8); NEUTROPHILS % (AUTO) 58 % (42-75); PLATELET COUNT 661 x10^3/uL (130-400); RED BLOOD COUNT 2.83 x10^6/uL (4.38-5.82); RED CELL DISTRIBUTION WIDTH 19.7 % (9.4-14.8)
[2019-08-08 15:38] LABS: ALANINE AMINOTRANSFERASE 20 U/L (12-78); ALBUMIN 2.1 g/dL (3.4-5.0); ANION GAP 6 mmol/L (5-15); CALCIUM 8.4 mg/dL (8.5-10.1); CHLORIDE 107 mmol/L (98-107); CREATININE 0.89 mg/dL (0.7-1.3)
[2019-08-08 15:40] LABS: ALKALINE PHOSPHATASE 108 U/L (45-117); BILIRUBIN,TOTAL 0.2 mg/dL (0.2-1.0); TOTAL PROTEIN 6.9 g/dL (6.4-8.2)
--- NOTE | 2019-08-08 15:47 | NUR ---
PIV EST ON R HAND WITH NO COMPLICATIONS. PT TOLERATED WELL.
[2019-08-08 15:48] VITALS: BP 108/53
--- NOTE | 2019-08-08 16:43 | NUR ---
Patient given discharge instructions and they have confirmed that they understand the instructions.
== END 2019-08-08 16:44 | disposition home or self-care (01) ==
LOC: ED 15:12
DX: D64.9 Anemia, unspecified (principal); E11.65 Type 2 diabetes mellitus with hyperglycemia; R00.0 Tachycardia, unspecified
CPT/HCPCS: 36415; 80053; 85025; 86850; 86900; 99283

== ENCOUNTER → 2019-08-19 | Outpatient (CLI) | payer OTHER ==
[~2019-08-19] MED LIST changes: +ASPI-496 PO; +INSU100V35 SQ
== END | disposition home or self-care (01) ==
LOC: WOUND 12:47
PROVIDERS: ATTEND Internal Medicine
DX: E11.622 Type 2 diabetes mellitus with other skin ulcer (principal); L89.150 Pressure ulcer of sacral region, unstageable; L98.491 Non-pressure chronic ulcer of skin of other sites limited to breakdown of skin; E11.40 Type 2 diabetes mellitus with diabetic neuropathy, unspecified; E44.0 Moderate protein-calorie malnutrition; C18.9 Malignant neoplasm of colon, unspecified; E78.5 Hyperlipidemia, unspecified; Z89.422 Acquired absence of other left toe(s); Z79.4 Long term (current) use of insulin
CPT/HCPCS: 97597; G0463

== ENCOUNTER 2019-08-28 07:19 | Outpatient (CLI) | payer OTHER ==
[2019-09-10] MEDS ORDERED: POTA10TA5 PO (12:10)
[2019-09-10] MEDS ORDERED: ATOR40TA78 PO (12:10)
[2019-09-10] MEDS ORDERED: FERR324T5 PO (12:10)
[2019-09-10] MEDS ORDERED: POTA20TA14 PO (12:10)
[2019-09-10] MEDS ORDERED: GLYB5TAB3 PO (12:10)
[2019-09-10] MEDS ORDERED: MULT-658 PO (12:10)
[2019-09-10] MEDS ORDERED: INSU200I SQ (12:10)
[2019-09-10] MEDS ORDERED: CLOP75TA52 PO (12:10)
[2019-09-10] MEDS ORDERED: FAMO20TA7 PO (12:10)
[2019-09-10] MEDS ORDERED: INSU100I13 SQ (12:10)
[2019-09-10] MEDS ORDERED: LACT1CAP35 PO (12:10)
[2019-09-10] MEDS ORDERED: LINA1TAB5 PO (12:10)
[2019-09-10] MEDS ORDERED: FURO20TA3 PO (12:10)
== END 2019-08-28 23:59 | disposition home or self-care (01) ==
LOC: ROC 07:19
PROVIDERS: ATTEND Radiology Radiation Oncology
DX: C20 Malignant neoplasm of rectum (principal); D63.1 Anemia in chronic kidney disease; I25.10 Atherosclerotic heart disease of native coronary artery without angina pectoris; E11.69 Type 2 diabetes mellitus with other specified complication; M86.69 Other chronic osteomyelitis, multiple sites; E78.5 Hyperlipidemia, unspecified; Z79.82 Long term (current) use of aspirin; Z79.4 Long term (current) use of insulin; Z79.899 Other long term (current) drug therapy
CPT/HCPCS: 99214; G0463

== ENCOUNTER → 2019-09-02 | Outpatient (CLI) | payer OTHER | END | disposition home or self-care (01) | LOC: WOUND 08:04 | PROVIDERS: ATTEND Internal Medicine | DX: E11.622 Type 2 diabetes mellitus with other skin ulcer (principal); L89.150 Pressure ulcer of sacral region, unstageable; L98.491 Non-pressure chronic ulcer of skin of other sites limited to breakdown of skin; E11.69 Type 2 diabetes mellitus with other specified complication; M86.8X8 Other osteomyelitis, other site; E11.10 Type 2 diabetes mellitus with ketoacidosis without coma; E11.40 Type 2 diabetes mellitus with diabetic neuropathy, unspecified; C18.9 Malignant neoplasm of colon, unspecified; E78.5 Hyperlipidemia, unspecified; I25.10 Atherosclerotic heart disease of native coronary artery without angina pectoris; D63.8 Anemia in other chronic diseases classified elsewhere; E43 Unspecified severe protein-calorie malnutrition; Z85.828 Personal history of other malignant neoplasm of skin; Z95.5 Presence of coronary angioplasty implant and graft; Z89.422 Acquired absence of other left toe(s); Z79.899 Other long term (current) drug therapy; Z79.82 Long term (current) use of aspirin; Z79.4 Long term (current) use of insulin; Z93.3 Colostomy status; Z68.20 Body mass index [BMI] 20.0-20.9, adult | CPT/HCPCS: 97597 ==

== ENCOUNTER 2019-09-03 09:10 | Outpatient (CLI) | payer OTHER ==
[2019-09-10] MEDS ORDERED: FURO20TA3 PO (12:10)
[2019-09-10] MEDS ORDERED: LINA1TAB5 PO (12:10)
[2019-09-10] MEDS ORDERED: LACT1CAP35 PO (12:10)
[2019-09-10] MEDS ORDERED: MULT-658 PO (12:10)
[2019-09-10] MEDS ORDERED: GLYB5TAB3 PO (12:10)
[2019-09-10] MEDS ORDERED: ATOR40TA78 PO (12:10)
[2019-09-10] MEDS ORDERED: INSU100I13 SQ (12:10)
[2019-09-10] MEDS ORDERED: INSU200I SQ (12:10)
[2019-09-10] MEDS ORDERED: POTA10TA5 PO (12:10)
[2019-09-10] MEDS ORDERED: POTA20TA14 PO (12:10)
[2019-09-10] MEDS ORDERED: FAMO20TA7 PO (12:10)
[2019-09-10] MEDS ORDERED: FERR324T5 PO (12:10)
[2019-09-10] MEDS ORDERED: CLOP75TA52 PO (12:10)
== END 2019-09-03 23:59 | disposition home or self-care (01) ==
LOC: PETCFH 09:10
PROVIDERS: ATTEND Internal Medicine Hematology & Oncology
DX: Z02.9 Encounter for administrative examinations, unspecified (principal)

== ENCOUNTER → 2019-09-09 | Outpatient (CLI) | payer OTHER ==
[~2019-09-09] MED LIST changes: +ATOR40TA78 PO; +CLOP75TA52 PO; +FERR324T5 PO; +GLYB5TAB3 PO; +INSU100I13 SQ; +INSU200I SQ; +LACT1CAP35 PO; +LINA1TAB5 PO; +MULT-658 PO; +POTA10TA5 PO; +POTA20TA14 PO
== END | disposition home or self-care (01) ==
LOC: PETCFH 07:59
PROVIDERS: ATTEND Internal Medicine Hematology & Oncology
DX: C20 Malignant neoplasm of rectum (principal)
CPT/HCPCS: 78815; A9552

== ENCOUNTER → 2019-09-09 | Outpatient (CLI) | payer OTHER | END | disposition home or self-care (01) | LOC: WOUND 10:36 | PROVIDERS: ATTEND Internal Medicine | DX: E11.622 Type 2 diabetes mellitus with other skin ulcer (principal); L89.150 Pressure ulcer of sacral region, unstageable; L98.491 Non-pressure chronic ulcer of skin of other sites limited to breakdown of skin; E11.621 Type 2 diabetes mellitus with foot ulcer; L97.421 Non-pressure chronic ulcer of left heel and midfoot limited to breakdown of skin; L89.623 Pressure ulcer of left heel, stage 3; E11.69 Type 2 diabetes mellitus with other specified complication; M86.8X8 Other osteomyelitis, other site; E11.10 Type 2 diabetes mellitus with ketoacidosis without coma; E11.40 Type 2 diabetes mellitus with diabetic neuropathy, unspecified; C18.9 Malignant neoplasm of colon, unspecified; E78.5 Hyperlipidemia, unspecified; I25.10 Atherosclerotic heart disease of native coronary artery without angina pectoris; D63.8 Anemia in other chronic diseases classified elsewhere; E43 Unspecified severe protein-calorie malnutrition; I49.01 Ventricular fibrillation; Z85.828 Personal history of other malignant neoplasm of skin; Z95.5 Presence of coronary angioplasty implant and graft; Z89.422 Acquired absence of other left toe(s); Z79.899 Other long term (current) drug therapy; Z79.82 Long term (current) use of aspirin; Z79.4 Long term (current) use of insulin; Z93.3 Colostomy status; Z68.20 Body mass index [BMI] 20.0-20.9, adult | CPT/HCPCS: 97597 ==

== ENCOUNTER → 2019-09-23 | Outpatient (CLI) | payer OTHER | END | disposition home or self-care (01) | LOC: WOUND 14:19 | PROVIDERS: ATTEND Internal Medicine | DX: E11.622 Type 2 diabetes mellitus with other skin ulcer (principal); L89.150 Pressure ulcer of sacral region, unstageable; L98.491 Non-pressure chronic ulcer of skin of other sites limited to breakdown of skin; E11.621 Type 2 diabetes mellitus with foot ulcer; L97.422 Non-pressure chronic ulcer of left heel and midfoot with fat layer exposed; L89.623 Pressure ulcer of left heel, stage 3; E11.69 Type 2 diabetes mellitus with other specified complication; M86.8X8 Other osteomyelitis, other site; E11.10 Type 2 diabetes mellitus with ketoacidosis without coma; E11.40 Type 2 diabetes mellitus with diabetic neuropathy, unspecified; C18.9 Malignant neoplasm of colon, unspecified; E78.5 Hyperlipidemia, unspecified; I25.10 Atherosclerotic heart disease of native coronary artery without angina pectoris; D63.8 Anemia in other chronic diseases classified elsewhere; E43 Unspecified severe protein-calorie malnutrition; I49.01 Ventricular fibrillation; Z85.828 Personal history of other malignant neoplasm of skin; Z95.5 Presence of coronary angioplasty implant and graft; Z89.422 Acquired absence of other left toe(s); Z79.899 Other long term (current) drug therapy; Z79.82 Long term (current) use of aspirin; Z79.4 Long term (current) use of insulin; Z93.3 Colostomy status; Z68.20 Body mass index [BMI] 20.0-20.9, adult | CPT/HCPCS: 11042; 11045; 97597 ==

== ENCOUNTER → 2019-09-23 | Outpatient (CLI) | payer OTHER ==
[2019-09-23 16:10] LABS: ALANINE AMINOTRANSFERASE 17 U/L (12-78); ALBUMIN 2.3 g/dL (3.4-5.0); ANION GAP 10 mmol/L (5-15); CALCIUM 8.9 mg/dL (8.5-10.1); CHLORIDE 101 mmol/L (98-107)
[2019-09-23 16:13] LABS: ALKALINE PHOSPHATASE 81 U/L (45-117); BILIRUBIN,TOTAL 0.4 mg/dL (0.2-1.0); CREATININE 0.96 mg/dL (0.7-1.3); TOTAL PROTEIN 7.8 g/dL (6.4-8.2)
== END | disposition home or self-care (01) ==
LOC: CFH 13:53
PROVIDERS: ATTEND Nurse Practitioner
DX: Z51.11 Encounter for antineoplastic chemotherapy (principal); C20 Malignant neoplasm of rectum; E11.69 Type 2 diabetes mellitus with other specified complication; T82.8 Other specified complications of cardiac and vascular prosthetic devices, implants and grafts; D64.9 Anemia, unspecified; Y83.8 Other surgical procedures as the cause of abnormal reaction of the patient, or of later complication, without mention of misadventure at the time of the procedure; Z79.899 Other long term (current) drug therapy
CPT/HCPCS: 36415; 80053; 83735

== ENCOUNTER 2019-10-05 08:13 | Outpatient (CLI) | payer OTHER ==
[2019-10-23] MEDS ORDERED: DAPT500V6 IV (13:33)
[2019-10-23] MEDS ORDERED: CEFT1FRO2 IV (13:33)
== END 2019-10-05 23:59 | disposition home or self-care (01) ==
LOC: WOUND 08:13
PROVIDERS: ATTEND Internal Medicine
DX: E11.622 Type 2 diabetes mellitus with other skin ulcer (principal); L89.150 Pressure ulcer of sacral region, unstageable; L98.491 Non-pressure chronic ulcer of skin of other sites limited to breakdown of skin; E11.621 Type 2 diabetes mellitus with foot ulcer; L97.422 Non-pressure chronic ulcer of left heel and midfoot with fat layer exposed; L89.623 Pressure ulcer of left heel, stage 3; E11.69 Type 2 diabetes mellitus with other specified complication; M86.8X8 Other osteomyelitis, other site; E11.10 Type 2 diabetes mellitus with ketoacidosis without coma; E11.40 Type 2 diabetes mellitus with diabetic neuropathy, unspecified; C18.9 Malignant neoplasm of colon, unspecified; E78.5 Hyperlipidemia, unspecified; I25.10 Atherosclerotic heart disease of native coronary artery without angina pectoris; D63.8 Anemia in other chronic diseases classified elsewhere; E43 Unspecified severe protein-calorie malnutrition; I49.01 Ventricular fibrillation; Z85.828 Personal history of other malignant neoplasm of skin; Z95.5 Presence of coronary angioplasty implant and graft; Z89.422 Acquired absence of other left toe(s); Z79.899 Other long term (current) drug therapy; Z79.82 Long term (current) use of aspirin; Z79.4 Long term (current) use of insulin; Z93.3 Colostomy status; Z68.20 Body mass index [BMI] 20.0-20.9, adult
CPT/HCPCS: 11042; 11045; 97597

== ENCOUNTER 2019-10-27 12:06 | Outpatient (CLI) | payer OTHER ==
[~2019-10-27 12:06] MED LIST changes: +CEFT1FRO2 IV; +DAPT500V6 IV
[2019-10-27 13:13] LABS: ALBUMIN 2.6 g/dL (3.4-5.0); CHLORIDE 108 mmol/L (98-107)
[2019-10-27 13:23] LABS: ALANINE AMINOTRANSFERASE 27 U/L (12-78); ALKALINE PHOSPHATASE 101 U/L (45-117); ANION GAP 11 mmol/L (5-15); BILIRUBIN,TOTAL 0.1 mg/dL (0.2-1.0); CALCIUM 8.7 mg/dL (8.5-10.1); CREATININE 0.89 mg/dL (0.7-1.3); TOTAL PROTEIN 7.8 g/dL (6.4-8.2)
== END 2019-10-27 23:59 | disposition home or self-care (01) ==
LOC: LAB 12:06
PROVIDERS: ATTEND Internal Medicine Hematology & Oncology
DX: Z51.11 Encounter for antineoplastic chemotherapy (principal); T82.8 Other specified complications of cardiac and vascular prosthetic devices, implants and grafts; C20 Malignant neoplasm of rectum; D64.9 Anemia, unspecified; E11.69 Type 2 diabetes mellitus with other specified complication; X58.XXXS Exposure to other specified factors, sequela; Z79.899 Other long term (current) drug therapy
CPT/HCPCS: 36415; 80053; 82378

== ENCOUNTER 2019-11-03 12:51 | Outpatient (CLI) | payer OTHER ==
[2019-11-03] MEDS ORDERED: OMNIPAQUE 350 MG/ML, 100ML BOTTLE ONE (14:30)
== END 2019-11-03 23:59 | disposition home or self-care (01) ==
LOC: RAD 12:51
PROVIDERS: ATTEND Internal Medicine Hematology & Oncology
DX: C20 Malignant neoplasm of rectum (principal)
CPT/HCPCS: 74177; Q9967

== ENCOUNTER 2019-11-04 08:31 | Day surgery (SDC) | payer OTHER ==
[~2019-11-04] VITALS: Ht 190.5 cm; Wt 76.1 kg
[2019-11-04] MEDS ORDERED: LIDOCAINE-MPF 2% ,5ML ONE (08:42)
[2019-11-04] MEDS ORDERED: FENTANYL PF 100 MCG/2ML ONE (08:42)
[2019-11-04] MEDS ORDERED: ROCURONIUM 10MG/ML,5ML ONE (08:42)
[2019-11-04] MEDS ORDERED: MIDAZOLAM 1 MG/ML, 2ML ONE (08:42)
[2019-11-04] MEDS ORDERED: PROPOFOL 10 MG/ML, 20ML ONE (08:42)
[2019-11-04] MEDS ORDERED: DEXAMETHASONE 4 MG/ML, 1ML ONE (08:42)
[2019-11-04] MEDS ORDERED: GLYCOPYRROLATE 0.2MG/1ML, 5ML ONE (08:42)
[2019-11-04] MEDS ORDERED: LACTATED RINGERS 1,000 ML IV SCH (09:28)
[2019-11-04] MEDS ORDERED: CHLORHEXIDINE 15 ML UDC MM ONE (09:30)
[2019-11-04] MEDS ORDERED: LIDOCAINE-MPF 1%, 2ML INFIL ONE (09:30)
[2019-11-04 09:38] VITALS: BP 117/78
[2019-11-04] MEDS ORDERED: CHLORHEXIDINE 15 ML UDC ONE (09:51)
[2019-11-04] MEDS ORDERED: PLEASE ENTER HEIGHT AND WEIGHT MC SCH (10:00)
[2019-11-04] MEDS ORDERED: BUPIVACAINE/EPI 0.5% 1:200K ONE (10:51)
[2019-11-04] MEDS ORDERED: HEPARIN 1,000 UNITS/ML, 10ML ONE (10:52)
[2019-11-04] MEDS ORDERED: CEFAZOLIN 1,000 MG ONE (11:34)
== END 2019-11-04 14:20 | disposition home or self-care (01) ==
LOC: OUT 08:31
PROVIDERS: ATTEND Surgery
DX: C19 Malignant neoplasm of rectosigmoid junction (principal); E11.9 Type 2 diabetes mellitus without complications; Z79.02 Long term (current) use of antithrombotics/antiplatelets; Z79.4 Long term (current) use of insulin; Z79.899 Other long term (current) drug therapy
CPT/HCPCS: 36561; 71045; 77001; 82962; C1788; J0690; J1100; J1644; J2250; J2704; J3010; J7120; 76000

== ENCOUNTER → 2019-11-04 | Outpatient (CLI) | payer OTHER | END | disposition home or self-care (01) | LOC: WOUND 13:57 | PROVIDERS: ATTEND Internal Medicine | DX: E11.622 Type 2 diabetes mellitus with other skin ulcer (principal); L89.150 Pressure ulcer of sacral region, unstageable; L98.491 Non-pressure chronic ulcer of skin of other sites limited to breakdown of skin; E11.621 Type 2 diabetes mellitus with foot ulcer; L97.422 Non-pressure chronic ulcer of left heel and midfoot with fat layer exposed; L89.623 Pressure ulcer of left heel, stage 3; E11.69 Type 2 diabetes mellitus with other specified complication; M86.8X8 Other osteomyelitis, other site; E11.10 Type 2 diabetes mellitus with ketoacidosis without coma; E11.40 Type 2 diabetes mellitus with diabetic neuropathy, unspecified; C18.9 Malignant neoplasm of colon, unspecified; E78.5 Hyperlipidemia, unspecified; I25.10 Atherosclerotic heart disease of native coronary artery without angina pectoris; D63.8 Anemia in other chronic diseases classified elsewhere; I49.01 Ventricular fibrillation; I10 Essential (primary) hypertension; E43 Unspecified severe protein-calorie malnutrition; L84 Corns and callosities; Z79.4 Long term (current) use of insulin; Z68.20 Body mass index [BMI] 20.0-20.9, adult; Z85.828 Personal history of other malignant neoplasm of skin; Z95.5 Presence of coronary angioplasty implant and graft; Z89.422 Acquired absence of other left toe(s); Z79.899 Other long term (current) drug therapy; Z79.82 Long term (current) use of aspirin; Z89.412 Acquired absence of left great toe; Z90.49 Acquired absence of other specified parts of digestive tract; Z89.519 Acquired absence of unspecified leg below knee; Z85.048 Personal history of other malignant neoplasm of rectum, rectosigmoid junction, and anus; Z79.01 Long term (current) use of anticoagulants; Z79.84 Long term (current) use of oral hypoglycemic drugs; Z79.02 Long term (current) use of antithrombotics/antiplatelets; Z93.3 Colostomy status | CPT/HCPCS: 11042 ==

== ENCOUNTER → 2019-11-10 | Outpatient (CLI) | payer OTHER | END | disposition home or self-care (01) | LOC: WOUND 07:48 | PROVIDERS: ATTEND Surgery | DX: E11.622 Type 2 diabetes mellitus with other skin ulcer (principal); L89.150 Pressure ulcer of sacral region, unstageable; L98.491 Non-pressure chronic ulcer of skin of other sites limited to breakdown of skin; E11.621 Type 2 diabetes mellitus with foot ulcer; L97.422 Non-pressure chronic ulcer of left heel and midfoot with fat layer exposed; L89.623 Pressure ulcer of left heel, stage 3; E11.610 Type 2 diabetes mellitus with diabetic neuropathic arthropathy; E11.69 Type 2 diabetes mellitus with other specified complication; M86.8X8 Other osteomyelitis, other site; E11.40 Type 2 diabetes mellitus with diabetic neuropathy, unspecified; E11.10 Type 2 diabetes mellitus with ketoacidosis without coma; C18.9 Malignant neoplasm of colon, unspecified; E78.5 Hyperlipidemia, unspecified; I25.10 Atherosclerotic heart disease of native coronary artery without angina pectoris; D63.8 Anemia in other chronic diseases classified elsewhere; I49.01 Ventricular fibrillation; I10 Essential (primary) hypertension; E43 Unspecified severe protein-calorie malnutrition; L84 Corns and callosities; Z79.4 Long term (current) use of insulin; Z68.20 Body mass index [BMI] 20.0-20.9, adult; Z85.828 Personal history of other malignant neoplasm of skin; Z95.5 Presence of coronary angioplasty implant and graft; Z89.422 Acquired absence of other left toe(s); Z79.899 Other long term (current) drug therapy; Z79.82 Long term (current) use of aspirin; Z89.412 Acquired absence of left great toe; Z90.49 Acquired absence of other specified parts of digestive tract; Z89.519 Acquired absence of unspecified leg below knee; Z85.048 Personal history of other malignant neoplasm of rectum, rectosigmoid junction, and anus; Z79.01 Long term (current) use of anticoagulants; Z79.84 Long term (current) use of oral hypoglycemic drugs; Z79.02 Long term (current) use of antithrombotics/antiplatelets; Z93.3 Colostomy status | CPT/HCPCS: 11042 ==

== ENCOUNTER 2019-11-16 08:45 | Outpatient (CLI) | payer OTHER | END 2019-11-16 23:59 | disposition home or self-care (01) | LOC: WOUND 08:45 | PROVIDERS: ATTEND Internal Medicine | DX: E11.622 Type 2 diabetes mellitus with other skin ulcer (principal); L89.150 Pressure ulcer of sacral region, unstageable; L98.491 Non-pressure chronic ulcer of skin of other sites limited to breakdown of skin; E11.621 Type 2 diabetes mellitus with foot ulcer; L97.422 Non-pressure chronic ulcer of left heel and midfoot with fat layer exposed; L97.522 Non-pressure chronic ulcer of other part of left foot with fat layer exposed; E11.610 Type 2 diabetes mellitus with diabetic neuropathic arthropathy; M86.8X7 Other osteomyelitis, ankle and foot; E11.69 Type 2 diabetes mellitus with other specified complication; M86.8X8 Other osteomyelitis, other site; E11.40 Type 2 diabetes mellitus with diabetic neuropathy, unspecified; E11.10 Type 2 diabetes mellitus with ketoacidosis without coma; C18.9 Malignant neoplasm of colon, unspecified; E78.5 Hyperlipidemia, unspecified; I25.10 Atherosclerotic heart disease of native coronary artery without angina pectoris; D63.8 Anemia in other chronic diseases classified elsewhere; I49.01 Ventricular fibrillation; I10 Essential (primary) hypertension; E43 Unspecified severe protein-calorie malnutrition; L84 Corns and callosities; Z79.4 Long term (current) use of insulin; Z68.20 Body mass index [BMI] 20.0-20.9, adult; Z85.828 Personal history of other malignant neoplasm of skin; Z95.5 Presence of coronary angioplasty implant and graft; Z89.422 Acquired absence of other left toe(s); Z79.899 Other long term (current) drug therapy; Z79.82 Long term (current) use of aspirin; Z89.412 Acquired absence of left great toe; Z90.49 Acquired absence of other specified parts of digestive tract; Z89.519 Acquired absence of unspecified leg below knee; Z85.048 Personal history of other malignant neoplasm of rectum, rectosigmoid junction, and anus; Z79.01 Long term (current) use of anticoagulants; Z79.84 Long term (current) use of oral hypoglycemic drugs; Z79.02 Long term (current) use of antithrombotics/antiplatelets; Z93.3 Colostomy status | CPT/HCPCS: 11042; 97597 ==

== ENCOUNTER → 2019-11-23 | Outpatient (CLI) | payer OTHER | END | disposition home or self-care (01) | LOC: WOUND 08:48 | PROVIDERS: ATTEND Internal Medicine | DX: E11.622 Type 2 diabetes mellitus with other skin ulcer (principal); L89.150 Pressure ulcer of sacral region, unstageable; L98.491 Non-pressure chronic ulcer of skin of other sites limited to breakdown of skin; E11.621 Type 2 diabetes mellitus with foot ulcer; L97.521 Non-pressure chronic ulcer of other part of left foot limited to breakdown of skin; L97.421 Non-pressure chronic ulcer of left heel and midfoot limited to breakdown of skin; E11.610 Type 2 diabetes mellitus with diabetic neuropathic arthropathy; E11.69 Type 2 diabetes mellitus with other specified complication; M86.8X8 Other osteomyelitis, other site; M86.8X7 Other osteomyelitis, ankle and foot; E11.40 Type 2 diabetes mellitus with diabetic neuropathy, unspecified; E11.10 Type 2 diabetes mellitus with ketoacidosis without coma; C18.9 Malignant neoplasm of colon, unspecified; E78.5 Hyperlipidemia, unspecified; I25.10 Atherosclerotic heart disease of native coronary artery without angina pectoris; D63.8 Anemia in other chronic diseases classified elsewhere; I49.01 Ventricular fibrillation; I10 Essential (primary) hypertension; L84 Corns and callosities; E11.51 Type 2 diabetes mellitus with diabetic peripheral angiopathy without gangrene; E43 Unspecified severe protein-calorie malnutrition; Z68.20 Body mass index [BMI] 20.0-20.9, adult; Z85.828 Personal history of other malignant neoplasm of skin; Z95.5 Presence of coronary angioplasty implant and graft; Z89.422 Acquired absence of other left toe(s); Z90.49 Acquired absence of other specified parts of digestive tract; Z89.519 Acquired absence of unspecified leg below knee; Z85.048 Personal history of other malignant neoplasm of rectum, rectosigmoid junction, and anus; Z79.4 Long term (current) use of insulin; Z79.01 Long term (current) use of anticoagulants; Z79.84 Long term (current) use of oral hypoglycemic drugs; Z79.02 Long term (current) use of antithrombotics/antiplatelets; Z89.412 Acquired absence of left great toe; Z79.899 Other long term (current) drug therapy; Z93.3 Colostomy status; Z86.73 Personal history of transient ischemic attack (TIA), and cerebral infarction without residual deficits | CPT/HCPCS: 97597 ==

== ENCOUNTER 2019-11-30 08:45 | Outpatient (CLI) | payer OTHER | END 2019-11-30 23:59 | disposition home or self-care (01) | LOC: WOUND 08:45 | PROVIDERS: ATTEND Internal Medicine | DX: E11.621 Type 2 diabetes mellitus with foot ulcer (principal); L97.421 Non-pressure chronic ulcer of left heel and midfoot limited to breakdown of skin; L97.521 Non-pressure chronic ulcer of other part of left foot limited to breakdown of skin; E11.622 Type 2 diabetes mellitus with other skin ulcer; L89.150 Pressure ulcer of sacral region, unstageable; L98.491 Non-pressure chronic ulcer of skin of other sites limited to breakdown of skin; E11.610 Type 2 diabetes mellitus with diabetic neuropathic arthropathy; E11.69 Type 2 diabetes mellitus with other specified complication; M86.8X8 Other osteomyelitis, other site; M86.8X7 Other osteomyelitis, ankle and foot; E11.40 Type 2 diabetes mellitus with diabetic neuropathy, unspecified; E11.10 Type 2 diabetes mellitus with ketoacidosis without coma; C18.9 Malignant neoplasm of colon, unspecified; E78.5 Hyperlipidemia, unspecified; I25.10 Atherosclerotic heart disease of native coronary artery without angina pectoris; D63.8 Anemia in other chronic diseases classified elsewhere; I49.01 Ventricular fibrillation; I10 Essential (primary) hypertension; L84 Corns and callosities; E11.51 Type 2 diabetes mellitus with diabetic peripheral angiopathy without gangrene; E43 Unspecified severe protein-calorie malnutrition; Z68.20 Body mass index [BMI] 20.0-20.9, adult; Z85.828 Personal history of other malignant neoplasm of skin; Z95.5 Presence of coronary angioplasty implant and graft; Z89.422 Acquired absence of other left toe(s); Z90.49 Acquired absence of other specified parts of digestive tract; Z89.519 Acquired absence of unspecified leg below knee; Z85.048 Personal history of other malignant neoplasm of rectum, rectosigmoid junction, and anus; Z79.4 Long term (current) use of insulin; Z79.01 Long term (current) use of anticoagulants; Z79.84 Long term (current) use of oral hypoglycemic drugs; Z79.02 Long term (current) use of antithrombotics/antiplatelets; Z89.412 Acquired absence of left great toe; Z79.899 Other long term (current) drug therapy; Z86.73 Personal history of transient ischemic attack (TIA), and cerebral infarction without residual deficits; Z93.3 Colostomy status | CPT/HCPCS: C5275; Q4166; C5271 ==

== ENCOUNTER 2019-12-07 08:50 | Outpatient (CLI) | payer OTHER | END 2019-12-07 23:59 | disposition home or self-care (01) | LOC: WOUND 08:50 | PROVIDERS: ATTEND Internal Medicine | DX: E11.621 Type 2 diabetes mellitus with foot ulcer (principal); L97.421 Non-pressure chronic ulcer of left heel and midfoot limited to breakdown of skin; L97.521 Non-pressure chronic ulcer of other part of left foot limited to breakdown of skin; E11.622 Type 2 diabetes mellitus with other skin ulcer; L89.150 Pressure ulcer of sacral region, unstageable; L98.491 Non-pressure chronic ulcer of skin of other sites limited to breakdown of skin; E11.610 Type 2 diabetes mellitus with diabetic neuropathic arthropathy; E11.69 Type 2 diabetes mellitus with other specified complication; M86.8X8 Other osteomyelitis, other site; M86.8X7 Other osteomyelitis, ankle and foot; M86.172 Other acute osteomyelitis, left ankle and foot; E11.40 Type 2 diabetes mellitus with diabetic neuropathy, unspecified; E11.10 Type 2 diabetes mellitus with ketoacidosis without coma; E11.21 Type 2 diabetes mellitus with diabetic nephropathy; E11.51 Type 2 diabetes mellitus with diabetic peripheral angiopathy without gangrene; C18.9 Malignant neoplasm of colon, unspecified; E78.5 Hyperlipidemia, unspecified; I25.10 Atherosclerotic heart disease of native coronary artery without angina pectoris; D63.8 Anemia in other chronic diseases classified elsewhere; I49.01 Ventricular fibrillation; I10 Essential (primary) hypertension; L84 Corns and callosities; E43 Unspecified severe protein-calorie malnutrition; Z68.20 Body mass index [BMI] 20.0-20.9, adult; Z85.828 Personal history of other malignant neoplasm of skin; Z95.5 Presence of coronary angioplasty implant and graft; Z90.49 Acquired absence of other specified parts of digestive tract; Z89.519 Acquired absence of unspecified leg below knee; Z86.73 Personal history of transient ischemic attack (TIA), and cerebral infarction without residual deficits; Z85.048 Personal history of other malignant neoplasm of rectum, rectosigmoid junction, and anus; Z86.14 Personal history of Methicillin resistant Staphylococcus aureus infection; Z79.4 Long term (current) use of insulin; Z79.01 Long term (current) use of anticoagulants; Z79.84 Long term (current) use of oral hypoglycemic drugs; Z79.02 Long term (current) use of antithrombotics/antiplatelets; Z79.82 Long term (current) use of aspirin; Z79.899 Other long term (current) drug therapy; Z89.422 Acquired absence of other left toe(s); Z89.412 Acquired absence of left great toe; Z93.3 Colostomy status | CPT/HCPCS: C5275; Q4166 ==

== ENCOUNTER → 2019-12-14 | Outpatient (CLI) | payer OTHER | END | disposition home or self-care (01) | LOC: WOUND 08:42 | PROVIDERS: ATTEND Internal Medicine | DX: E11.621 Type 2 diabetes mellitus with foot ulcer (principal); L97.421 Non-pressure chronic ulcer of left heel and midfoot limited to breakdown of skin; L97.521 Non-pressure chronic ulcer of other part of left foot limited to breakdown of skin; E11.622 Type 2 diabetes mellitus with other skin ulcer; L89.150 Pressure ulcer of sacral region, unstageable; L98.491 Non-pressure chronic ulcer of skin of other sites limited to breakdown of skin; E11.610 Type 2 diabetes mellitus with diabetic neuropathic arthropathy; E11.69 Type 2 diabetes mellitus with other specified complication; M86.8X8 Other osteomyelitis, other site; M86.8X7 Other osteomyelitis, ankle and foot; M86.172 Other acute osteomyelitis, left ankle and foot; E11.40 Type 2 diabetes mellitus with diabetic neuropathy, unspecified; E11.10 Type 2 diabetes mellitus with ketoacidosis without coma; E11.21 Type 2 diabetes mellitus with diabetic nephropathy; E11.51 Type 2 diabetes mellitus with diabetic peripheral angiopathy without gangrene; C18.9 Malignant neoplasm of colon, unspecified; E78.5 Hyperlipidemia, unspecified; I25.10 Atherosclerotic heart disease of native coronary artery without angina pectoris; D63.8 Anemia in other chronic diseases classified elsewhere; I49.01 Ventricular fibrillation; I10 Essential (primary) hypertension; L84 Corns and callosities; E43 Unspecified severe protein-calorie malnutrition; Z68.20 Body mass index [BMI] 20.0-20.9, adult; Z85.828 Personal history of other malignant neoplasm of skin; Z95.5 Presence of coronary angioplasty implant and graft; Z90.49 Acquired absence of other specified parts of digestive tract; Z89.519 Acquired absence of unspecified leg below knee; Z86.73 Personal history of transient ischemic attack (TIA), and cerebral infarction without residual deficits; Z85.048 Personal history of other malignant neoplasm of rectum, rectosigmoid junction, and anus; Z86.14 Personal history of Methicillin resistant Staphylococcus aureus infection; Z79.4 Long term (current) use of insulin; Z79.01 Long term (current) use of anticoagulants; Z79.84 Long term (current) use of oral hypoglycemic drugs; Z79.02 Long term (current) use of antithrombotics/antiplatelets; Z79.82 Long term (current) use of aspirin; Z79.899 Other long term (current) drug therapy; Z89.422 Acquired absence of other left toe(s); Z89.412 Acquired absence of left great toe; Z93.3 Colostomy status | CPT/HCPCS: C5275; Q4166 ==

== ENCOUNTER 2019-12-21 08:35 | Outpatient (CLI) | payer OTHER | END 2019-12-21 23:59 | disposition home or self-care (01) | LOC: WOUND 08:35 | PROVIDERS: ATTEND Internal Medicine | DX: E11.621 Type 2 diabetes mellitus with foot ulcer (principal); L97.421 Non-pressure chronic ulcer of left heel and midfoot limited to breakdown of skin; L97.521 Non-pressure chronic ulcer of other part of left foot limited to breakdown of skin; E11.622 Type 2 diabetes mellitus with other skin ulcer; L89.150 Pressure ulcer of sacral region, unstageable; L98.491 Non-pressure chronic ulcer of skin of other sites limited to breakdown of skin; E11.610 Type 2 diabetes mellitus with diabetic neuropathic arthropathy; E11.69 Type 2 diabetes mellitus with other specified complication; M86.172 Other acute osteomyelitis, left ankle and foot; E11.40 Type 2 diabetes mellitus with diabetic neuropathy, unspecified; E11.10 Type 2 diabetes mellitus with ketoacidosis without coma; E11.21 Type 2 diabetes mellitus with diabetic nephropathy; E11.51 Type 2 diabetes mellitus with diabetic peripheral angiopathy without gangrene; C18.9 Malignant neoplasm of colon, unspecified; E78.5 Hyperlipidemia, unspecified; I25.10 Atherosclerotic heart disease of native coronary artery without angina pectoris; D63.8 Anemia in other chronic diseases classified elsewhere; I49.01 Ventricular fibrillation; I10 Essential (primary) hypertension; L84 Corns and callosities; E43 Unspecified severe protein-calorie malnutrition; Z68.20 Body mass index [BMI] 20.0-20.9, adult; Z85.828 Personal history of other malignant neoplasm of skin; Z95.5 Presence of coronary angioplasty implant and graft; Z90.49 Acquired absence of other specified parts of digestive tract; Z89.519 Acquired absence of unspecified leg below knee; Z86.73 Personal history of transient ischemic attack (TIA), and cerebral infarction without residual deficits; Z85.048 Personal history of other malignant neoplasm of rectum, rectosigmoid junction, and anus; Z86.14 Personal history of Methicillin resistant Staphylococcus aureus infection; Z79.4 Long term (current) use of insulin; Z79.01 Long term (current) use of anticoagulants; Z79.84 Long term (current) use of oral hypoglycemic drugs; Z79.02 Long term (current) use of antithrombotics/antiplatelets; Z79.82 Long term (current) use of aspirin; Z79.899 Other long term (current) drug therapy; Z89.422 Acquired absence of other left toe(s); Z89.412 Acquired absence of left great toe; Z93.3 Colostomy status | CPT/HCPCS: C5275; Q4118; 15275 ==

== ENCOUNTER → 2019-12-21 | Outpatient (CLI) | payer OTHER ==
[2019-12-21 17:09] LABS: CHLORIDE 107 mmol/L (98-107)
[2019-12-21 17:15] LABS: ALANINE AMINOTRANSFERASE 34 U/L (12-78); ALBUMIN 3.1 g/dL (3.4-5.0); ALKALINE PHOSPHATASE 108 U/L (45-117); ANION GAP 9 mmol/L (5-15); BILIRUBIN,TOTAL 0.3 mg/dL (0.2-1.0); CALCIUM 9.5 mg/dL (8.5-10.1); CREATININE 1.22 mg/dL (0.7-1.3); TOTAL PROTEIN 7.7 g/dL (6.4-8.2)
== END | disposition home or self-care (01) ==
LOC: CFH 09:13
PROVIDERS: ATTEND Nurse Practitioner Family
DX: Z51.11 Encounter for antineoplastic chemotherapy (principal); C20 Malignant neoplasm of rectum; E11.69 Type 2 diabetes mellitus with other specified complication; D64.9 Anemia, unspecified; T82.8 Other specified complications of cardiac and vascular prosthetic devices, implants and grafts; Y83.8 Other surgical procedures as the cause of abnormal reaction of the patient, or of later complication, without mention of misadventure at the time of the procedure; Z79.899 Other long term (current) drug therapy
CPT/HCPCS: 36415; 80053; 83735

== ENCOUNTER → 2019-12-30 | Outpatient (CLI) | payer OTHER | END | disposition home or self-care (01) | LOC: WOUND 08:30 | PROVIDERS: ATTEND Internal Medicine | DX: E11.621 Type 2 diabetes mellitus with foot ulcer (principal); L97.421 Non-pressure chronic ulcer of left heel and midfoot limited to breakdown of skin; L97.521 Non-pressure chronic ulcer of other part of left foot limited to breakdown of skin; E11.622 Type 2 diabetes mellitus with other skin ulcer; L89.150 Pressure ulcer of sacral region, unstageable; L98.491 Non-pressure chronic ulcer of skin of other sites limited to breakdown of skin; E11.610 Type 2 diabetes mellitus with diabetic neuropathic arthropathy; E11.69 Type 2 diabetes mellitus with other specified complication; M86.8X8 Other osteomyelitis, other site; M86.8X7 Other osteomyelitis, ankle and foot; M86.172 Other acute osteomyelitis, left ankle and foot; E11.40 Type 2 diabetes mellitus with diabetic neuropathy, unspecified; E11.10 Type 2 diabetes mellitus with ketoacidosis without coma; E11.21 Type 2 diabetes mellitus with diabetic nephropathy; E11.51 Type 2 diabetes mellitus with diabetic peripheral angiopathy without gangrene; C18.9 Malignant neoplasm of colon, unspecified; E78.5 Hyperlipidemia, unspecified; I25.10 Atherosclerotic heart disease of native coronary artery without angina pectoris; D63.8 Anemia in other chronic diseases classified elsewhere; I49.01 Ventricular fibrillation; I10 Essential (primary) hypertension; L84 Corns and callosities; E43 Unspecified severe protein-calorie malnutrition; Z68.20 Body mass index [BMI] 20.0-20.9, adult; Z85.828 Personal history of other malignant neoplasm of skin; Z95.5 Presence of coronary angioplasty implant and graft; Z90.49 Acquired absence of other specified parts of digestive tract; Z89.519 Acquired absence of unspecified leg below knee; Z86.73 Personal history of transient ischemic attack (TIA), and cerebral infarction without residual deficits; Z85.048 Personal history of other malignant neoplasm of rectum, rectosigmoid junction, and anus; Z86.14 Personal history of Methicillin resistant Staphylococcus aureus infection; Z79.4 Long term (current) use of insulin; Z79.01 Long term (current) use of anticoagulants; Z79.84 Long term (current) use of oral hypoglycemic drugs; Z79.02 Long term (current) use of antithrombotics/antiplatelets; Z79.82 Long term (current) use of aspirin; Z79.899 Other long term (current) drug therapy; Z89.422 Acquired absence of other left toe(s); Z89.412 Acquired absence of left great toe; Z93.3 Colostomy status | CPT/HCPCS: C5275; Q4118; Q4166; 15275 ==

== ENCOUNTER → 2020-01-04 | Outpatient (CLI) | payer OTHER | END | disposition home or self-care (01) | LOC: WOUND 08:57 | PROVIDERS: ATTEND Internal Medicine | DX: E11.621 Type 2 diabetes mellitus with foot ulcer (principal); L97.421 Non-pressure chronic ulcer of left heel and midfoot limited to breakdown of skin; E11.622 Type 2 diabetes mellitus with other skin ulcer; L89.150 Pressure ulcer of sacral region, unstageable; L98.491 Non-pressure chronic ulcer of skin of other sites limited to breakdown of skin; E11.610 Type 2 diabetes mellitus with diabetic neuropathic arthropathy; E11.69 Type 2 diabetes mellitus with other specified complication; M86.8X8 Other osteomyelitis, other site; M86.8X7 Other osteomyelitis, ankle and foot; M86.172 Other acute osteomyelitis, left ankle and foot; E11.40 Type 2 diabetes mellitus with diabetic neuropathy, unspecified; E11.10 Type 2 diabetes mellitus with ketoacidosis without coma; E11.21 Type 2 diabetes mellitus with diabetic nephropathy; E11.51 Type 2 diabetes mellitus with diabetic peripheral angiopathy without gangrene; C18.9 Malignant neoplasm of colon, unspecified; E78.5 Hyperlipidemia, unspecified; I25.10 Atherosclerotic heart disease of native coronary artery without angina pectoris; D63.8 Anemia in other chronic diseases classified elsewhere; I49.01 Ventricular fibrillation; I10 Essential (primary) hypertension; L84 Corns and callosities; E43 Unspecified severe protein-calorie malnutrition; Z68.20 Body mass index [BMI] 20.0-20.9, adult; Z85.828 Personal history of other malignant neoplasm of skin; Z95.5 Presence of coronary angioplasty implant and graft; Z90.49 Acquired absence of other specified parts of digestive tract; Z89.519 Acquired absence of unspecified leg below knee; Z86.73 Personal history of transient ischemic attack (TIA), and cerebral infarction without residual deficits; Z85.048 Personal history of other malignant neoplasm of rectum, rectosigmoid junction, and anus; Z86.14 Personal history of Methicillin resistant Staphylococcus aureus infection; Z79.4 Long term (current) use of insulin; Z79.01 Long term (current) use of anticoagulants; Z79.84 Long term (current) use of oral hypoglycemic drugs; Z79.02 Long term (current) use of antithrombotics/antiplatelets; Z79.82 Long term (current) use of aspirin; Z79.899 Other long term (current) drug therapy; Z89.422 Acquired absence of other left toe(s); Z89.412 Acquired absence of left great toe; Z93.3 Colostomy status | CPT/HCPCS: C5275; Q4118 ==

== ENCOUNTER → 2020-01-05 | Outpatient (CLI) | payer OTHER ==
[~2020-01-05] MED LIST changes: +OMNIPAQUE 350 MG/ML, 100ML BOTTLE ONE
== END | disposition home or self-care (01) ==
LOC: CFH 11:54
PROVIDERS: ATTEND Internal Medicine Hematology & Oncology
DX: C20 Malignant neoplasm of rectum (principal); K42.9 Umbilical hernia without obstruction or gangrene; K76.0 Fatty (change of) liver, not elsewhere classified; I25.10 Atherosclerotic heart disease of native coronary artery without angina pectoris; M51.34 Other intervertebral disc degeneration, thoracic region; N28.1 Cyst of kidney, acquired; I70.0 Atherosclerosis of aorta
CPT/HCPCS: 71260; 74177; Q9967

== ENCOUNTER 2020-01-13 09:09 | Outpatient (CLI) | payer OTHER ==
[~2020-01-13 09:09] MED LIST changes: -OMNIPAQUE 350 MG/ML, 100ML BOTTLE ONE
== END 2020-01-13 23:59 | disposition home or self-care (01) ==
LOC: WOUND 09:09
PROVIDERS: ATTEND Internal Medicine
DX: E11.621 Type 2 diabetes mellitus with foot ulcer (principal); L97.421 Non-pressure chronic ulcer of left heel and midfoot limited to breakdown of skin; E11.622 Type 2 diabetes mellitus with other skin ulcer; L89.150 Pressure ulcer of sacral region, unstageable; L98.491 Non-pressure chronic ulcer of skin of other sites limited to breakdown of skin; E11.610 Type 2 diabetes mellitus with diabetic neuropathic arthropathy; E11.69 Type 2 diabetes mellitus with other specified complication; M86.8X8 Other osteomyelitis, other site; M86.8X7 Other osteomyelitis, ankle and foot; M86.172 Other acute osteomyelitis, left ankle and foot; E11.40 Type 2 diabetes mellitus with diabetic neuropathy, unspecified; E11.10 Type 2 diabetes mellitus with ketoacidosis without coma; E11.21 Type 2 diabetes mellitus with diabetic nephropathy; E11.51 Type 2 diabetes mellitus with diabetic peripheral angiopathy without gangrene; C18.9 Malignant neoplasm of colon, unspecified; E78.5 Hyperlipidemia, unspecified; I25.10 Atherosclerotic heart disease of native coronary artery without angina pectoris; D63.8 Anemia in other chronic diseases classified elsewhere; I49.01 Ventricular fibrillation; I10 Essential (primary) hypertension; L84 Corns and callosities; E43 Unspecified severe protein-calorie malnutrition; Z68.20 Body mass index [BMI] 20.0-20.9, adult; Z85.828 Personal history of other malignant neoplasm of skin; Z95.5 Presence of coronary angioplasty implant and graft; Z90.49 Acquired absence of other specified parts of digestive tract; Z89.519 Acquired absence of unspecified leg below knee; Z86.73 Personal history of transient ischemic attack (TIA), and cerebral infarction without residual deficits; Z85.048 Personal history of other malignant neoplasm of rectum, rectosigmoid junction, and anus; Z86.14 Personal history of Methicillin resistant Staphylococcus aureus infection; Z79.4 Long term (current) use of insulin; Z79.01 Long term (current) use of anticoagulants; Z79.84 Long term (current) use of oral hypoglycemic drugs; Z79.02 Long term (current) use of antithrombotics/antiplatelets; Z79.82 Long term (current) use of aspirin; Z79.899 Other long term (current) drug therapy; Z89.422 Acquired absence of other left toe(s); Z89.412 Acquired absence of left great toe; Z93.3 Colostomy status
CPT/HCPCS: C5275; Q4118

== ENCOUNTER 2020-01-14 07:28 | Outpatient (CLI) | payer OTHER | END 2020-01-14 23:59 | disposition home or self-care (01) | LOC: ROC 07:28 | PROVIDERS: ATTEND Radiology Radiation Oncology | DX: C20 Malignant neoplasm of rectum (principal); I25.10 Atherosclerotic heart disease of native coronary artery without angina pectoris; I10 Essential (primary) hypertension; E11.610 Type 2 diabetes mellitus with diabetic neuropathic arthropathy; E78.5 Hyperlipidemia, unspecified; E11.51 Type 2 diabetes mellitus with diabetic peripheral angiopathy without gangrene; E11.21 Type 2 diabetes mellitus with diabetic nephropathy; Z79.4 Long term (current) use of insulin; Z79.01 Long term (current) use of anticoagulants; Z79.82 Long term (current) use of aspirin; Z79.84 Long term (current) use of oral hypoglycemic drugs; Z79.02 Long term (current) use of antithrombotics/antiplatelets; Z90.49 Acquired absence of other specified parts of digestive tract; Z79.899 Other long term (current) drug therapy | CPT/HCPCS: 99212; G0463 ==

== ENCOUNTER 2020-01-18 08:51 | Outpatient (CLI) | payer OTHER | END 2020-01-18 23:59 | disposition home or self-care (01) | LOC: WOUND 08:51 | PROVIDERS: ATTEND Internal Medicine | DX: E11.621 Type 2 diabetes mellitus with foot ulcer (principal); L97.421 Non-pressure chronic ulcer of left heel and midfoot limited to breakdown of skin; L97.511 Non-pressure chronic ulcer of other part of right foot limited to breakdown of skin; E11.622 Type 2 diabetes mellitus with other skin ulcer; L89.150 Pressure ulcer of sacral region, unstageable; L98.491 Non-pressure chronic ulcer of skin of other sites limited to breakdown of skin; E11.610 Type 2 diabetes mellitus with diabetic neuropathic arthropathy; E11.69 Type 2 diabetes mellitus with other specified complication; M86.8X8 Other osteomyelitis, other site; M86.8X7 Other osteomyelitis, ankle and foot; M86.172 Other acute osteomyelitis, left ankle and foot; E11.40 Type 2 diabetes mellitus with diabetic neuropathy, unspecified; E11.10 Type 2 diabetes mellitus with ketoacidosis without coma; E11.21 Type 2 diabetes mellitus with diabetic nephropathy; E11.51 Type 2 diabetes mellitus with diabetic peripheral angiopathy without gangrene; E78.5 Hyperlipidemia, unspecified; C18.9 Malignant neoplasm of colon, unspecified; I25.10 Atherosclerotic heart disease of native coronary artery without angina pectoris; D63.8 Anemia in other chronic diseases classified elsewhere; I49.01 Ventricular fibrillation; I10 Essential (primary) hypertension; L84 Corns and callosities; E43 Unspecified severe protein-calorie malnutrition; Z68.20 Body mass index [BMI] 20.0-20.9, adult; Z85.828 Personal history of other malignant neoplasm of skin; Z95.5 Presence of coronary angioplasty implant and graft; Z90.49 Acquired absence of other specified parts of digestive tract; Z89.519 Acquired absence of unspecified leg below knee; Z86.73 Personal history of transient ischemic attack (TIA), and cerebral infarction without residual deficits; Z85.048 Personal history of other malignant neoplasm of rectum, rectosigmoid junction, and anus; Z86.14 Personal history of Methicillin resistant Staphylococcus aureus infection; Z79.01 Long term (current) use of anticoagulants; Z79.02 Long term (current) use of antithrombotics/antiplatelets; Z79.82 Long term (current) use of aspirin; Z79.899 Other long term (current) drug therapy; Z79.4 Long term (current) use of insulin; Z89.412 Acquired absence of left great toe; Z89.422 Acquired absence of other left toe(s); Z93.3 Colostomy status | CPT/HCPCS: 97597; C5275; Q4166; 15275 ==

== ENCOUNTER 2020-01-25 08:38 | Outpatient (CLI) | payer OTHER | END 2020-01-25 23:59 | disposition home or self-care (01) | LOC: WOUND 08:38 | PROVIDERS: ATTEND Internal Medicine | DX: E11.621 Type 2 diabetes mellitus with foot ulcer (principal); L97.421 Non-pressure chronic ulcer of left heel and midfoot limited to breakdown of skin; L97.511 Non-pressure chronic ulcer of other part of right foot limited to breakdown of skin; E11.622 Type 2 diabetes mellitus with other skin ulcer; L89.150 Pressure ulcer of sacral region, unstageable; L98.491 Non-pressure chronic ulcer of skin of other sites limited to breakdown of skin; E11.610 Type 2 diabetes mellitus with diabetic neuropathic arthropathy; E11.69 Type 2 diabetes mellitus with other specified complication; M86.8X8 Other osteomyelitis, other site; M86.8X7 Other osteomyelitis, ankle and foot; M86.172 Other acute osteomyelitis, left ankle and foot; E11.40 Type 2 diabetes mellitus with diabetic neuropathy, unspecified; E11.10 Type 2 diabetes mellitus with ketoacidosis without coma; E11.21 Type 2 diabetes mellitus with diabetic nephropathy; E11.51 Type 2 diabetes mellitus with diabetic peripheral angiopathy without gangrene; C18.9 Malignant neoplasm of colon, unspecified; E78.5 Hyperlipidemia, unspecified; I25.10 Atherosclerotic heart disease of native coronary artery without angina pectoris; D63.8 Anemia in other chronic diseases classified elsewhere; I49.01 Ventricular fibrillation; I10 Essential (primary) hypertension; L84 Corns and callosities; E43 Unspecified severe protein-calorie malnutrition; Z68.20 Body mass index [BMI] 20.0-20.9, adult; Z85.828 Personal history of other malignant neoplasm of skin; Z95.5 Presence of coronary angioplasty implant and graft; Z90.49 Acquired absence of other specified parts of digestive tract; Z89.519 Acquired absence of unspecified leg below knee; Z86.73 Personal history of transient ischemic attack (TIA), and cerebral infarction without residual deficits; Z85.048 Personal history of other malignant neoplasm of rectum, rectosigmoid junction, and anus; Z86.14 Personal history of Methicillin resistant Staphylococcus aureus infection; Z79.4 Long term (current) use of insulin; Z79.01 Long term (current) use of anticoagulants; Z79.02 Long term (current) use of antithrombotics/antiplatelets; Z79.82 Long term (current) use of aspirin; Z79.899 Other long term (current) drug therapy; Z89.422 Acquired absence of other left toe(s); Z89.412 Acquired absence of left great toe; Z93.3 Colostomy status | CPT/HCPCS: 97597; C5275; Q4118 ==

== ENCOUNTER → 2020-02-01 | Outpatient (CLI) | payer OTHER | END | disposition home or self-care (01) | LOC: WOUND 08:59 | PROVIDERS: ATTEND Internal Medicine | DX: E11.621 Type 2 diabetes mellitus with foot ulcer (principal); L97.421 Non-pressure chronic ulcer of left heel and midfoot limited to breakdown of skin; L97.511 Non-pressure chronic ulcer of other part of right foot limited to breakdown of skin; E11.622 Type 2 diabetes mellitus with other skin ulcer; L89.150 Pressure ulcer of sacral region, unstageable; L98.491 Non-pressure chronic ulcer of skin of other sites limited to breakdown of skin; E11.610 Type 2 diabetes mellitus with diabetic neuropathic arthropathy; E11.69 Type 2 diabetes mellitus with other specified complication; M86.8X8 Other osteomyelitis, other site; M86.8X7 Other osteomyelitis, ankle and foot; M86.172 Other acute osteomyelitis, left ankle and foot; E11.40 Type 2 diabetes mellitus with diabetic neuropathy, unspecified; E11.10 Type 2 diabetes mellitus with ketoacidosis without coma; E11.21 Type 2 diabetes mellitus with diabetic nephropathy; E11.51 Type 2 diabetes mellitus with diabetic peripheral angiopathy without gangrene; C18.9 Malignant neoplasm of colon, unspecified; E78.5 Hyperlipidemia, unspecified; I25.10 Atherosclerotic heart disease of native coronary artery without angina pectoris; D63.8 Anemia in other chronic diseases classified elsewhere; I49.01 Ventricular fibrillation; I10 Essential (primary) hypertension; L84 Corns and callosities; E43 Unspecified severe protein-calorie malnutrition; Z68.20 Body mass index [BMI] 20.0-20.9, adult; Z85.828 Personal history of other malignant neoplasm of skin; Z95.5 Presence of coronary angioplasty implant and graft; Z90.49 Acquired absence of other specified parts of digestive tract; Z89.519 Acquired absence of unspecified leg below knee; Z86.73 Personal history of transient ischemic attack (TIA), and cerebral infarction without residual deficits; Z85.048 Personal history of other malignant neoplasm of rectum, rectosigmoid junction, and anus; Z86.14 Personal history of Methicillin resistant Staphylococcus aureus infection; Z79.4 Long term (current) use of insulin; Z79.01 Long term (current) use of anticoagulants; Z79.02 Long term (current) use of antithrombotics/antiplatelets; Z79.82 Long term (current) use of aspirin; Z79.899 Other long term (current) drug therapy; Z89.422 Acquired absence of other left toe(s); Z89.412 Acquired absence of left great toe; Z93.3 Colostomy status | CPT/HCPCS: 97597 ==

== ENCOUNTER 2020-02-08 09:34 | Outpatient (CLI) | payer OTHER | END 2020-02-08 23:59 | disposition home or self-care (01) | LOC: WOUND 09:34 | PROVIDERS: ATTEND Internal Medicine | DX: E11.621 Type 2 diabetes mellitus with foot ulcer (principal); L97.421 Non-pressure chronic ulcer of left heel and midfoot limited to breakdown of skin; E11.622 Type 2 diabetes mellitus with other skin ulcer; L98.491 Non-pressure chronic ulcer of skin of other sites limited to breakdown of skin; L89.150 Pressure ulcer of sacral region, unstageable; E11.40 Type 2 diabetes mellitus with diabetic neuropathy, unspecified; C18.9 Malignant neoplasm of colon, unspecified; E11.69 Type 2 diabetes mellitus with other specified complication; M86.8X8 Other osteomyelitis, other site; M86.8X7 Other osteomyelitis, ankle and foot; M86.172 Other acute osteomyelitis, left ankle and foot; E11.10 Type 2 diabetes mellitus with ketoacidosis without coma; E11.21 Type 2 diabetes mellitus with diabetic nephropathy; E11.51 Type 2 diabetes mellitus with diabetic peripheral angiopathy without gangrene; E78.5 Hyperlipidemia, unspecified; I25.10 Atherosclerotic heart disease of native coronary artery without angina pectoris; D63.8 Anemia in other chronic diseases classified elsewhere; I49.01 Ventricular fibrillation; I10 Essential (primary) hypertension; L84 Corns and callosities; E43 Unspecified severe protein-calorie malnutrition; Z68.20 Body mass index [BMI] 20.0-20.9, adult; Z85.828 Personal history of other malignant neoplasm of skin; Z95.5 Presence of coronary angioplasty implant and graft; Z90.49 Acquired absence of other specified parts of digestive tract; Z89.519 Acquired absence of unspecified leg below knee; Z86.73 Personal history of transient ischemic attack (TIA), and cerebral infarction without residual deficits; Z85.048 Personal history of other malignant neoplasm of rectum, rectosigmoid junction, and anus; Z86.14 Personal history of Methicillin resistant Staphylococcus aureus infection; Z79.01 Long term (current) use of anticoagulants; Z79.02 Long term (current) use of antithrombotics/antiplatelets; Z79.82 Long term (current) use of aspirin; Z79.899 Other long term (current) drug therapy; Z89.412 Acquired absence of left great toe; Z89.422 Acquired absence of other left toe(s); Z79.4 Long term (current) use of insulin; Z93.3 Colostomy status | CPT/HCPCS: C5275; Q4166 ==

== ENCOUNTER → 2020-02-15 | Outpatient (CLI) | payer OTHER | END | disposition home or self-care (01) | LOC: WOUND 09:51 | PROVIDERS: ATTEND Internal Medicine | DX: E11.621 Type 2 diabetes mellitus with foot ulcer (principal); L97.421 Non-pressure chronic ulcer of left heel and midfoot limited to breakdown of skin; E11.622 Type 2 diabetes mellitus with other skin ulcer; L89.150 Pressure ulcer of sacral region, unstageable; L98.491 Non-pressure chronic ulcer of skin of other sites limited to breakdown of skin; E11.610 Type 2 diabetes mellitus with diabetic neuropathic arthropathy; E11.69 Type 2 diabetes mellitus with other specified complication; M86.8X8 Other osteomyelitis, other site; M86.8X7 Other osteomyelitis, ankle and foot; M86.172 Other acute osteomyelitis, left ankle and foot; E11.40 Type 2 diabetes mellitus with diabetic neuropathy, unspecified; E11.10 Type 2 diabetes mellitus with ketoacidosis without coma; E11.21 Type 2 diabetes mellitus with diabetic nephropathy; E11.51 Type 2 diabetes mellitus with diabetic peripheral angiopathy without gangrene; C18.9 Malignant neoplasm of colon, unspecified; E78.5 Hyperlipidemia, unspecified; I25.10 Atherosclerotic heart disease of native coronary artery without angina pectoris; D63.8 Anemia in other chronic diseases classified elsewhere; I49.01 Ventricular fibrillation; I10 Essential (primary) hypertension; L84 Corns and callosities; E43 Unspecified severe protein-calorie malnutrition; Z68.20 Body mass index [BMI] 20.0-20.9, adult; Z85.828 Personal history of other malignant neoplasm of skin; Z95.5 Presence of coronary angioplasty implant and graft; Z90.49 Acquired absence of other specified parts of digestive tract; Z89.519 Acquired absence of unspecified leg below knee; Z86.73 Personal history of transient ischemic attack (TIA), and cerebral infarction without residual deficits; Z85.048 Personal history of other malignant neoplasm of rectum, rectosigmoid junction, and anus; Z86.14 Personal history of Methicillin resistant Staphylococcus aureus infection; Z79.4 Long term (current) use of insulin; Z79.01 Long term (current) use of anticoagulants; Z79.02 Long term (current) use of antithrombotics/antiplatelets; Z79.82 Long term (current) use of aspirin; Z79.899 Other long term (current) drug therapy; Z89.422 Acquired absence of other left toe(s); Z89.412 Acquired absence of left great toe; Z93.3 Colostomy status | CPT/HCPCS: 97597 ==

== ENCOUNTER 2020-02-22 09:27 | Outpatient (CLI) | payer OTHER | END 2020-02-22 23:59 | disposition home or self-care (01) | LOC: WOUND 09:27 | PROVIDERS: ATTEND Internal Medicine | DX: E11.621 Type 2 diabetes mellitus with foot ulcer (principal); L97.421 Non-pressure chronic ulcer of left heel and midfoot limited to breakdown of skin; L97.511 Non-pressure chronic ulcer of other part of right foot limited to breakdown of skin; E11.622 Type 2 diabetes mellitus with other skin ulcer; L98.491 Non-pressure chronic ulcer of skin of other sites limited to breakdown of skin; L89.150 Pressure ulcer of sacral region, unstageable; E11.40 Type 2 diabetes mellitus with diabetic neuropathy, unspecified; C18.9 Malignant neoplasm of colon, unspecified; E11.69 Type 2 diabetes mellitus with other specified complication; M86.8X8 Other osteomyelitis, other site; M86.8X7 Other osteomyelitis, ankle and foot; M86.172 Other acute osteomyelitis, left ankle and foot; E11.10 Type 2 diabetes mellitus with ketoacidosis without coma; E11.21 Type 2 diabetes mellitus with diabetic nephropathy; E11.51 Type 2 diabetes mellitus with diabetic peripheral angiopathy without gangrene; E78.5 Hyperlipidemia, unspecified; I25.10 Atherosclerotic heart disease of native coronary artery without angina pectoris; D63.8 Anemia in other chronic diseases classified elsewhere; I49.01 Ventricular fibrillation; I10 Essential (primary) hypertension; L84 Corns and callosities; E43 Unspecified severe protein-calorie malnutrition; Z68.20 Body mass index [BMI] 20.0-20.9, adult; Z85.828 Personal history of other malignant neoplasm of skin; Z95.5 Presence of coronary angioplasty implant and graft; Z90.49 Acquired absence of other specified parts of digestive tract; Z89.519 Acquired absence of unspecified leg below knee; Z86.73 Personal history of transient ischemic attack (TIA), and cerebral infarction without residual deficits; Z85.048 Personal history of other malignant neoplasm of rectum, rectosigmoid junction, and anus; Z86.14 Personal history of Methicillin resistant Staphylococcus aureus infection; Z79.01 Long term (current) use of anticoagulants; Z79.02 Long term (current) use of antithrombotics/antiplatelets; Z79.82 Long term (current) use of aspirin; Z79.899 Other long term (current) drug therapy; Z79.4 Long term (current) use of insulin; Z89.412 Acquired absence of left great toe; Z89.422 Acquired absence of other left toe(s); Z93.3 Colostomy status | CPT/HCPCS: 11730; 11732; 97597 ==

== ENCOUNTER → 2020-02-29 | Outpatient (CLI) | payer OTHER | END | disposition home or self-care (01) | LOC: WOUND 09:38 | PROVIDERS: ATTEND Internal Medicine | DX: E11.621 Type 2 diabetes mellitus with foot ulcer (principal); L97.421 Non-pressure chronic ulcer of left heel and midfoot limited to breakdown of skin; E11.622 Type 2 diabetes mellitus with other skin ulcer; L98.491 Non-pressure chronic ulcer of skin of other sites limited to breakdown of skin; L89.150 Pressure ulcer of sacral region, unstageable; E11.40 Type 2 diabetes mellitus with diabetic neuropathy, unspecified; C18.9 Malignant neoplasm of colon, unspecified; E11.69 Type 2 diabetes mellitus with other specified complication; M86.8X8 Other osteomyelitis, other site; M86.8X7 Other osteomyelitis, ankle and foot; M86.172 Other acute osteomyelitis, left ankle and foot; E11.10 Type 2 diabetes mellitus with ketoacidosis without coma; E11.21 Type 2 diabetes mellitus with diabetic nephropathy; E11.51 Type 2 diabetes mellitus with diabetic peripheral angiopathy without gangrene; E78.5 Hyperlipidemia, unspecified; I25.10 Atherosclerotic heart disease of native coronary artery without angina pectoris; D63.8 Anemia in other chronic diseases classified elsewhere; I49.01 Ventricular fibrillation; I10 Essential (primary) hypertension; L84 Corns and callosities; E43 Unspecified severe protein-calorie malnutrition; Z68.20 Body mass index [BMI] 20.0-20.9, adult; Z85.828 Personal history of other malignant neoplasm of skin; Z95.5 Presence of coronary angioplasty implant and graft; Z90.49 Acquired absence of other specified parts of digestive tract; Z89.519 Acquired absence of unspecified leg below knee; Z86.73 Personal history of transient ischemic attack (TIA), and cerebral infarction without residual deficits; Z85.048 Personal history of other malignant neoplasm of rectum, rectosigmoid junction, and anus; Z86.14 Personal history of Methicillin resistant Staphylococcus aureus infection; Z79.01 Long term (current) use of anticoagulants; Z79.02 Long term (current) use of antithrombotics/antiplatelets; Z79.82 Long term (current) use of aspirin; Z79.899 Other long term (current) drug therapy; Z79.4 Long term (current) use of insulin; Z89.412 Acquired absence of left great toe; Z89.422 Acquired absence of other left toe(s); Z93.3 Colostomy status | CPT/HCPCS: 97597 ==

== ENCOUNTER → 2020-03-07 | Outpatient (CLI) | payer OTHER | END | disposition home or self-care (01) | LOC: WOUND 09:50 | PROVIDERS: ATTEND Internal Medicine | DX: E11.621 Type 2 diabetes mellitus with foot ulcer (principal); L97.421 Non-pressure chronic ulcer of left heel and midfoot limited to breakdown of skin; E11.622 Type 2 diabetes mellitus with other skin ulcer; L98.491 Non-pressure chronic ulcer of skin of other sites limited to breakdown of skin; L89.150 Pressure ulcer of sacral region, unstageable; E11.40 Type 2 diabetes mellitus with diabetic neuropathy, unspecified; C18.9 Malignant neoplasm of colon, unspecified; E11.69 Type 2 diabetes mellitus with other specified complication; M86.8X8 Other osteomyelitis, other site; M86.8X7 Other osteomyelitis, ankle and foot; M86.172 Other acute osteomyelitis, left ankle and foot; E11.10 Type 2 diabetes mellitus with ketoacidosis without coma; E11.21 Type 2 diabetes mellitus with diabetic nephropathy; E11.51 Type 2 diabetes mellitus with diabetic peripheral angiopathy without gangrene; E78.5 Hyperlipidemia, unspecified; I25.10 Atherosclerotic heart disease of native coronary artery without angina pectoris; D63.8 Anemia in other chronic diseases classified elsewhere; I49.01 Ventricular fibrillation; I10 Essential (primary) hypertension; L84 Corns and callosities; E43 Unspecified severe protein-calorie malnutrition; Z68.20 Body mass index [BMI] 20.0-20.9, adult; Z85.828 Personal history of other malignant neoplasm of skin; Z95.5 Presence of coronary angioplasty implant and graft; Z90.49 Acquired absence of other specified parts of digestive tract; Z89.519 Acquired absence of unspecified leg below knee; Z86.73 Personal history of transient ischemic attack (TIA), and cerebral infarction without residual deficits; Z85.048 Personal history of other malignant neoplasm of rectum, rectosigmoid junction, and anus; Z86.14 Personal history of Methicillin resistant Staphylococcus aureus infection; Z79.01 Long term (current) use of anticoagulants; Z79.02 Long term (current) use of antithrombotics/antiplatelets; Z79.82 Long term (current) use of aspirin; Z79.899 Other long term (current) drug therapy; Z79.4 Long term (current) use of insulin; Z89.412 Acquired absence of left great toe; Z89.422 Acquired absence of other left toe(s); Z93.3 Colostomy status | CPT/HCPCS: 99213 ==

== ENCOUNTER → 2020-03-14 | Outpatient (CLI) | payer OTHER | END | disposition home or self-care (01) | LOC: WOUND 08:56 | PROVIDERS: ATTEND Internal Medicine | DX: E11.621 Type 2 diabetes mellitus with foot ulcer (principal); L97.421 Non-pressure chronic ulcer of left heel and midfoot limited to breakdown of skin; E11.622 Type 2 diabetes mellitus with other skin ulcer; L98.492 Non-pressure chronic ulcer of skin of other sites with fat layer exposed; L89.150 Pressure ulcer of sacral region, unstageable; E11.40 Type 2 diabetes mellitus with diabetic neuropathy, unspecified; C18.9 Malignant neoplasm of colon, unspecified; E11.69 Type 2 diabetes mellitus with other specified complication; M86.8X8 Other osteomyelitis, other site; M86.8X7 Other osteomyelitis, ankle and foot; M86.172 Other acute osteomyelitis, left ankle and foot; E11.10 Type 2 diabetes mellitus with ketoacidosis without coma; E11.21 Type 2 diabetes mellitus with diabetic nephropathy; E11.51 Type 2 diabetes mellitus with diabetic peripheral angiopathy without gangrene; E78.5 Hyperlipidemia, unspecified; I25.10 Atherosclerotic heart disease of native coronary artery without angina pectoris; D63.8 Anemia in other chronic diseases classified elsewhere; I49.01 Ventricular fibrillation; I10 Essential (primary) hypertension; L84 Corns and callosities; E43 Unspecified severe protein-calorie malnutrition; Z68.20 Body mass index [BMI] 20.0-20.9, adult; Z85.828 Personal history of other malignant neoplasm of skin; Z95.5 Presence of coronary angioplasty implant and graft; Z90.49 Acquired absence of other specified parts of digestive tract; Z89.519 Acquired absence of unspecified leg below knee; Z86.73 Personal history of transient ischemic attack (TIA), and cerebral infarction without residual deficits; Z85.048 Personal history of other malignant neoplasm of rectum, rectosigmoid junction, and anus; Z86.14 Personal history of Methicillin resistant Staphylococcus aureus infection; Z79.01 Long term (current) use of anticoagulants; Z79.02 Long term (current) use of antithrombotics/antiplatelets; Z79.82 Long term (current) use of aspirin; Z79.899 Other long term (current) drug therapy; Z79.4 Long term (current) use of insulin; Z89.412 Acquired absence of left great toe; Z89.422 Acquired absence of other left toe(s); Z93.3 Colostomy status | CPT/HCPCS: 97597 ==

== ENCOUNTER → 2020-03-21 | Outpatient (CLI) | payer OTHER | END | disposition home or self-care (01) | LOC: WOUND 14:23 | PROVIDERS: ATTEND Internal Medicine | DX: E11.621 Type 2 diabetes mellitus with foot ulcer (principal); L97.421 Non-pressure chronic ulcer of left heel and midfoot limited to breakdown of skin; E11.622 Type 2 diabetes mellitus with other skin ulcer; L98.492 Non-pressure chronic ulcer of skin of other sites with fat layer exposed; L89.150 Pressure ulcer of sacral region, unstageable; E11.40 Type 2 diabetes mellitus with diabetic neuropathy, unspecified; C18.9 Malignant neoplasm of colon, unspecified; E11.69 Type 2 diabetes mellitus with other specified complication; M86.8X8 Other osteomyelitis, other site; M86.8X7 Other osteomyelitis, ankle and foot; M86.172 Other acute osteomyelitis, left ankle and foot; E11.10 Type 2 diabetes mellitus with ketoacidosis without coma; E11.21 Type 2 diabetes mellitus with diabetic nephropathy; E11.51 Type 2 diabetes mellitus with diabetic peripheral angiopathy without gangrene; E78.5 Hyperlipidemia, unspecified; I25.10 Atherosclerotic heart disease of native coronary artery without angina pectoris; D63.8 Anemia in other chronic diseases classified elsewhere; I49.01 Ventricular fibrillation; I10 Essential (primary) hypertension; L84 Corns and callosities; E43 Unspecified severe protein-calorie malnutrition; Z68.20 Body mass index [BMI] 20.0-20.9, adult; Z85.828 Personal history of other malignant neoplasm of skin; Z95.5 Presence of coronary angioplasty implant and graft; Z90.49 Acquired absence of other specified parts of digestive tract; Z89.519 Acquired absence of unspecified leg below knee; Z86.73 Personal history of transient ischemic attack (TIA), and cerebral infarction without residual deficits; Z85.048 Personal history of other malignant neoplasm of rectum, rectosigmoid junction, and anus; Z86.14 Personal history of Methicillin resistant Staphylococcus aureus infection; Z79.01 Long term (current) use of anticoagulants; Z79.02 Long term (current) use of antithrombotics/antiplatelets; Z79.82 Long term (current) use of aspirin; Z79.899 Other long term (current) drug therapy; Z79.4 Long term (current) use of insulin; Z89.412 Acquired absence of left great toe; Z89.422 Acquired absence of other left toe(s); Z93.3 Colostomy status | CPT/HCPCS: 97597 ==

== ENCOUNTER 2020-03-22 07:19 | Outpatient (CLI) | payer OTHER | END 2020-03-22 23:59 | disposition home or self-care (01) | LOC: ROC 07:19 | PROVIDERS: ATTEND Radiology Radiation Oncology | DX: Z08 Encounter for follow-up examination after completed treatment for malignant neoplasm (principal); Z85.048 Personal history of other malignant neoplasm of rectum, rectosigmoid junction, and anus; D63.8 Anemia in other chronic diseases classified elsewhere; I25.10 Atherosclerotic heart disease of native coronary artery without angina pectoris; I10 Essential (primary) hypertension; E78.5 Hyperlipidemia, unspecified; E11.69 Type 2 diabetes mellitus with other specified complication; M86.172 Other acute osteomyelitis, left ankle and foot; E11.40 Type 2 diabetes mellitus with diabetic neuropathy, unspecified; E11.10 Type 2 diabetes mellitus with ketoacidosis without coma; E11.51 Type 2 diabetes mellitus with diabetic peripheral angiopathy without gangrene; E11.42 Type 2 diabetes mellitus with diabetic polyneuropathy; Z89.412 Acquired absence of left great toe; Z79.01 Long term (current) use of anticoagulants; Z79.02 Long term (current) use of antithrombotics/antiplatelets; Z79.82 Long term (current) use of aspirin; Z79.4 Long term (current) use of insulin | CPT/HCPCS: 99212; G0463 ==

== ENCOUNTER → 2020-03-28 | Outpatient (CLI) | payer OTHER | END | disposition home or self-care (01) | LOC: WOUND 09:52 | PROVIDERS: ATTEND Internal Medicine | DX: E11.621 Type 2 diabetes mellitus with foot ulcer (principal); L97.421 Non-pressure chronic ulcer of left heel and midfoot limited to breakdown of skin; E11.622 Type 2 diabetes mellitus with other skin ulcer; L89.150 Pressure ulcer of sacral region, unstageable; L98.491 Non-pressure chronic ulcer of skin of other sites limited to breakdown of skin; E11.40 Type 2 diabetes mellitus with diabetic neuropathy, unspecified; C18.9 Malignant neoplasm of colon, unspecified; E11.69 Type 2 diabetes mellitus with other specified complication; M86.8X7 Other osteomyelitis, ankle and foot; M86.172 Other acute osteomyelitis, left ankle and foot; E11.10 Type 2 diabetes mellitus with ketoacidosis without coma; E11.21 Type 2 diabetes mellitus with diabetic nephropathy; E11.51 Type 2 diabetes mellitus with diabetic peripheral angiopathy without gangrene; E78.5 Hyperlipidemia, unspecified; I25.10 Atherosclerotic heart disease of native coronary artery without angina pectoris; D63.8 Anemia in other chronic diseases classified elsewhere; I49.01 Ventricular fibrillation; I10 Essential (primary) hypertension; L84 Corns and callosities; E43 Unspecified severe protein-calorie malnutrition; Z68.20 Body mass index [BMI] 20.0-20.9, adult; Z85.828 Personal history of other malignant neoplasm of skin; Z95.5 Presence of coronary angioplasty implant and graft; Z90.49 Acquired absence of other specified parts of digestive tract; Z89.519 Acquired absence of unspecified leg below knee; Z86.73 Personal history of transient ischemic attack (TIA), and cerebral infarction without residual deficits; Z85.048 Personal history of other malignant neoplasm of rectum, rectosigmoid junction, and anus; Z86.14 Personal history of Methicillin resistant Staphylococcus aureus infection; Z79.01 Long term (current) use of anticoagulants; Z79.02 Long term (current) use of antithrombotics/antiplatelets; Z79.82 Long term (current) use of aspirin; Z79.899 Other long term (current) drug therapy; Z79.4 Long term (current) use of insulin; Z89.412 Acquired absence of left great toe; Z89.422 Acquired absence of other left toe(s); Z93.3 Colostomy status | CPT/HCPCS: 97597 ==

== ENCOUNTER 2020-04-01 08:27 | Outpatient (CLI) | payer OTHER ==
[2020-04-01] MEDS ORDERED: OMNIPAQUE 350 MG/ML, 100ML BOTTLE ONE (15:38)
== END 2020-04-01 23:59 | disposition home or self-care (01) ==
LOC: CFH 08:27
PROVIDERS: ATTEND Internal Medicine Hematology & Oncology
DX: C20 Malignant neoplasm of rectum (principal); N13.30 Unspecified hydronephrosis
CPT/HCPCS: 71260; 74177; Q9967

== ENCOUNTER 2020-04-04 08:57 | Outpatient (CLI) | payer OTHER | END 2020-04-04 23:59 | disposition home or self-care (01) | LOC: WOUND 08:57 | PROVIDERS: ATTEND Internal Medicine | DX: E11.621 Type 2 diabetes mellitus with foot ulcer (principal); L97.421 Non-pressure chronic ulcer of left heel and midfoot limited to breakdown of skin; E11.622 Type 2 diabetes mellitus with other skin ulcer; L89.150 Pressure ulcer of sacral region, unstageable; L98.491 Non-pressure chronic ulcer of skin of other sites limited to breakdown of skin; C18.9 Malignant neoplasm of colon, unspecified; E11.69 Type 2 diabetes mellitus with other specified complication; M86.8X7 Other osteomyelitis, ankle and foot; M86.172 Other acute osteomyelitis, left ankle and foot; E11.10 Type 2 diabetes mellitus with ketoacidosis without coma; E11.21 Type 2 diabetes mellitus with diabetic nephropathy; E11.51 Type 2 diabetes mellitus with diabetic peripheral angiopathy without gangrene; E78.5 Hyperlipidemia, unspecified; I25.10 Atherosclerotic heart disease of native coronary artery without angina pectoris; D63.8 Anemia in other chronic diseases classified elsewhere; I49.01 Ventricular fibrillation; I10 Essential (primary) hypertension; L84 Corns and callosities; E11.42 Type 2 diabetes mellitus with diabetic polyneuropathy; E11.610 Type 2 diabetes mellitus with diabetic neuropathic arthropathy; E43 Unspecified severe protein-calorie malnutrition; Z68.20 Body mass index [BMI] 20.0-20.9, adult; Z85.828 Personal history of other malignant neoplasm of skin; Z95.5 Presence of coronary angioplasty implant and graft; Z90.49 Acquired absence of other specified parts of digestive tract; Z89.519 Acquired absence of unspecified leg below knee; Z86.73 Personal history of transient ischemic attack (TIA), and cerebral infarction without residual deficits; Z85.048 Personal history of other malignant neoplasm of rectum, rectosigmoid junction, and anus; Z86.14 Personal history of Methicillin resistant Staphylococcus aureus infection; Z79.01 Long term (current) use of anticoagulants; Z79.02 Long term (current) use of antithrombotics/antiplatelets; Z79.82 Long term (current) use of aspirin; Z79.899 Other long term (current) drug therapy; Z79.4 Long term (current) use of insulin; Z89.412 Acquired absence of left great toe; Z89.422 Acquired absence of other left toe(s); Z93.3 Colostomy status | CPT/HCPCS: 97597 ==

== ENCOUNTER 2020-04-08 10:09 | Outpatient (CLI) | payer OTHER | END 2020-04-08 23:59 | disposition home or self-care (01) | LOC: CFH 10:09 | PROVIDERS: ATTEND Internal Medicine Cardiovascular Disease | DX: I08.1 Rheumatic disorders of both mitral and tricuspid valves (principal); I49.01 Ventricular fibrillation | CPT/HCPCS: 93306 ==

== ENCOUNTER → 2020-04-18 | Outpatient (CLI) | payer OTHER | END | disposition home or self-care (01) | LOC: WOUND 09:01 | PROVIDERS: ATTEND Internal Medicine | DX: E11.621 Type 2 diabetes mellitus with foot ulcer (principal); L97.421 Non-pressure chronic ulcer of left heel and midfoot limited to breakdown of skin; E11.622 Type 2 diabetes mellitus with other skin ulcer; L89.150 Pressure ulcer of sacral region, unstageable; L98.491 Non-pressure chronic ulcer of skin of other sites limited to breakdown of skin; C18.9 Malignant neoplasm of colon, unspecified; E11.69 Type 2 diabetes mellitus with other specified complication; M86.8X7 Other osteomyelitis, ankle and foot; M86.172 Other acute osteomyelitis, left ankle and foot; E11.10 Type 2 diabetes mellitus with ketoacidosis without coma; E11.21 Type 2 diabetes mellitus with diabetic nephropathy; E11.51 Type 2 diabetes mellitus with diabetic peripheral angiopathy without gangrene; E78.5 Hyperlipidemia, unspecified; I25.10 Atherosclerotic heart disease of native coronary artery without angina pectoris; D63.8 Anemia in other chronic diseases classified elsewhere; I49.01 Ventricular fibrillation; I10 Essential (primary) hypertension; L84 Corns and callosities; E11.42 Type 2 diabetes mellitus with diabetic polyneuropathy; E11.610 Type 2 diabetes mellitus with diabetic neuropathic arthropathy; E43 Unspecified severe protein-calorie malnutrition; Z68.20 Body mass index [BMI] 20.0-20.9, adult; Z85.828 Personal history of other malignant neoplasm of skin; Z95.5 Presence of coronary angioplasty implant and graft; Z90.49 Acquired absence of other specified parts of digestive tract; Z89.519 Acquired absence of unspecified leg below knee; Z86.73 Personal history of transient ischemic attack (TIA), and cerebral infarction without residual deficits; Z85.048 Personal history of other malignant neoplasm of rectum, rectosigmoid junction, and anus; Z86.14 Personal history of Methicillin resistant Staphylococcus aureus infection; Z79.01 Long term (current) use of anticoagulants; Z79.02 Long term (current) use of antithrombotics/antiplatelets; Z79.82 Long term (current) use of aspirin; Z79.899 Other long term (current) drug therapy; Z79.4 Long term (current) use of insulin; Z89.412 Acquired absence of left great toe; Z89.422 Acquired absence of other left toe(s); Z93.3 Colostomy status | CPT/HCPCS: 97597 ==

== ENCOUNTER 2020-04-24 11:01 | Inpatient (IN) | payer OTHER, MEDICARE ==
[~2020-04-24] VITALS: Ht 190.5 cm; Wt 84.0 kg
[2020-04-24] MEDS ORDERED: SODIUM CHLORIDE FLUSH 10ML SYR IVF ONE (11:30)
--- NOTE | 2020-04-24 12:17 | NUR ---
MULTIPLE ATTEMPTS TO PLACE CHRIS WITH NO SUCESS. PT WAS ABLE TO VOID IN URINAL AND SENT TO LAB. PROVIDER UPDATED.
[2020-04-24 12:21] LABS: BASOPHILS % (AUTO) 0 % (0-1); EOSINOPHILS % (AUTO) 0 % (1-7); LYMPHOCYTES % (AUTO) 7 % (22-44); MEAN CORPUSCULAR HEMOGLOBIN 31.9 pg (27.5-34.5); MEAN CORPUSCULAR HGB CONC 34.3 g/dL (33.2-36.2); MEAN PLATELET VOLUME 7.6 fL (7.4-10.4); MONOCYTES % (AUTO) 10 % (2-9); NEUTROPHILS % (AUTO) 82 % (42-75); PLATELET COUNT 687 x10^3/uL (130-400); RED BLOOD COUNT 3.94 x10^6/uL (4.38-5.82)
[2020-04-24 12:29] LABS: ALANINE AMINOTRANSFERASE 15 U/L (12-78); ALBUMIN 2.6 g/dL (3.4-5.0); ANION GAP 11 mmol/L (5-15); CALCIUM 9.3 mg/dL (8.5-10.1); CHLORIDE 106 mmol/L (98-107); CREATININE 1.29 mg/dL (0.7-1.3)
[2020-04-24 12:31] LABS: ALKALINE PHOSPHATASE 93 U/L (45-117); BILIRUBIN,TOTAL 0.4 mg/dL (0.2-1.0); TOTAL PROTEIN 7.7 g/dL (6.4-8.2)
[2020-04-24 12:50] LABS: ACANTHOCYTES 1+; ANISOCYTOSIS 1+; ECHINOCYTES 1+; MD MORPH REVIEW ONLY; OVALOCYTES 1+; POLYCHROMASIA 1+; SCHISTOCYTES 1+
[2020-04-24 12:51] LABS: PMNS WITH VACUOLES 1+
[2020-04-24 12:52] LABS: <PLATELET ESTIMATE> INCREASED; <PLT MORPHOLOGY> NORMAL PLT MORPH; HOWELL-JOLLY BODIES 1+
[2020-04-24] MEDS ORDERED: CEFTRIAXONE PMX 1GM/50ML 50 ML IVPB ONE (13:00)
[2020-04-24 13:14] LABS: MICROSCOPIC INDICATED
[2020-04-24] MEDS ORDERED: CEFTRIAXONE PMX 1GM/50ML 50 ML ONE (13:43)
[2020-04-24] MEDS ORDERED: SODIUM CHLORIDE 0.9% 1,000 ML IV ONE (14:00)
[2020-04-24] MEDS ORDERED: SODIUM CHLORIDE FLUSH 10ML SYR IVF PRN (14:00)
[2020-04-24] MEDS ORDERED: ONDANSETRON ODT 4 MG PO PRN (15:00)
[2020-04-24] MEDS ORDERED: FAMOTIDINE 20 MG TABLET PO PRN (15:00)
[2020-04-24] MEDS ORDERED: OPIUM/BELLADONNA SUPP.RECT 16.2-60 MG PR PRN (15:00)
[2020-04-24] MEDS ORDERED: ACETAMINOPHEN 325 MG TABLET PO PRN (15:00)
[2020-04-24] MEDS ORDERED: hydrALAzine 20 MG/ML, 1ML IVPush PRN (15:00)
[2020-04-24] MEDS ORDERED: ONDANSETRON 2MG/ML, 2ML IVPush PRN (15:00)
[2020-04-24] MEDS ORDERED: TRAZODONE 50MG TABLET PO PRN (15:00)
--- NOTE | 2020-04-24 15:26 | NUR ---
Break RN note: Report called to Lizette HUBER. Floor ready for pt transport.
[2020-04-24] MEDS: INSULIN LISPRO 100 UNITS/ML, PEN SQ-INSULIN SCH ×2 (16:00→21:55)
--- NOTE | 2020-04-24 16:00 | NUR ---
ADMITTING DR ORDERED COVID TEST. FLOOR CHANGED TO [facility]. AWAITING ROOM.
[2020-04-24 18:29] VITALS: BP 124/73
[2020-04-24] MEDS: ENOXAPARIN 40 MG/0.4 ML SQ SCH (21:47)
[2020-04-24] MEDS: PHENAZOPYRIDINE 200 MG TABLET PO PRN (21:47)
[2020-04-24] MEDS: SODIUM CHLORIDE 0.9% 1,000 ML IV SCH (21:48)
[2020-04-24] MEDS: INSULIN GLARGINE 100 UNITS/ML, PEN SQ-INSULIN SCH (21:54)
[2020-04-25 00:24] VITALS: BP 114/66
[2020-04-25 05:03] LABS: BASOPHILS % (AUTO) 0 % (0-1); EOSINOPHILS % (AUTO) 2 % (1-7); LYMPHOCYTES % (AUTO) 10 % (22-44); MEAN CORPUSCULAR HEMOGLOBIN 31.1 pg (27.5-34.5); MEAN CORPUSCULAR HGB CONC 33.6 g/dL (33.2-36.2); MEAN PLATELET VOLUME 7.7 fL (7.4-10.4); MONOCYTES % (AUTO) 15 % (2-9); NEUTROPHILS % (AUTO) 73 % (42-75); PLATELET COUNT 605 x10^3/uL (130-400); RED BLOOD COUNT 3.63 x10^6/uL (4.38-5.82); RED CELL DISTRIBUTION WIDTH 17.5 % (9.4-14.8)
[2020-04-25] MEDS: SODIUM CHLORIDE 0.9% 1,000 ML IV SCH ×2 (05:11→14:00)
[2020-04-25 05:13] LABS: CHLORIDE 111 mmol/L (98-107)
[2020-04-25 05:17] LABS: ANION GAP 8 mmol/L (5-15); CALCIUM 9.1 mg/dL (8.5-10.1); CREATININE 1.08 mg/dL (0.7-1.3)
[2020-04-25 06:25] LABS: MD SCAN
[2020-04-25] MEDS: INSULIN LISPRO 100 UNITS/ML, PEN SQ-INSULIN SCH ×4 (07:00→23:50)
[2020-04-25] MEDS: INSULIN GLARGINE 100 UNITS/ML, PEN SQ-INSULIN SCH (08:12)
[2020-04-25 08:14] VITALS: BP 133/78
[2020-04-25 13:47] VITALS: BP 113/69
[2020-04-25] MEDS: ENOXAPARIN 40 MG/0.4 ML SQ SCH (16:00)
[2020-04-25] MEDS: FLUCONAZOLE 200 MG/100 ML 100 ML IV SCH (16:05)
[2020-04-25] MEDS: TAMSULOSIN 0.4 MG CAP.ER.24H PO SCH (16:06)
[2020-04-25 19:32] VITALS: BP 119/70
[2020-04-26] MEDS: SODIUM CHLORIDE 0.9% 1,000 ML IV SCH ×4 (00:40→21:10)
[2020-04-26] MEDS: INSULIN GLARGINE 100 UNITS/ML, PEN SQ-INSULIN SCH ×3 (00:41→21:09)
[2020-04-26 00:58] VITALS: BP 118/70
[2020-04-26 06:16] LABS: ANION GAP 8 mmol/L (5-15); CALCIUM 8.6 mg/dL (8.5-10.1); CHLORIDE 112 mmol/L (98-107)
[2020-04-26 06:25] LABS: BASOPHILS % (AUTO) 0 % (0-1); EOSINOPHILS % (AUTO) 1 % (1-7); LYMPHOCYTES % (AUTO) 11 % (22-44); MEAN CORPUSCULAR HEMOGLOBIN 31.7 pg (27.5-34.5); MEAN CORPUSCULAR HGB CONC 34.1 g/dL (33.2-36.2); MEAN PLATELET VOLUME 7.6 fL (7.4-10.4); MONOCYTES % (AUTO) 15 % (2-9); NEUTROPHILS % (AUTO) 72 % (42-75); PLATELET COUNT 612 x10^3/uL (130-400); RED BLOOD COUNT 3.41 x10^6/uL (4.38-5.82); RED CELL DISTRIBUTION WIDTH 17.4 % (9.4-14.8)
[2020-04-26] MEDS: INSULIN LISPRO 100 UNITS/ML, PEN SQ-INSULIN SCH ×4 (07:00→21:00)
[2020-04-26 07:04] LABS: MD SCAN
[2020-04-26 07:51] VITALS: BP 116/69
[2020-04-26] MEDS: TAMSULOSIN 0.4 MG CAP.ER.24H PO SCH (08:19)
[2020-04-26] MEDS: IBUPROFEN 600 MG TABLET PO PRN (09:21)
[2020-04-26] MEDS: PHENAZOPYRIDINE 200 MG TABLET PO PRN (09:21)
[2020-04-26 13:44] VITALS: BP 113/69
[2020-04-26] MEDS: FLUCONAZOLE 200 MG/100 ML 100 ML IV SCH (14:23)
[2020-04-26] MEDS: PHENAZOPYRIDINE 200 MG TABLET PO SCH ×3 (16:00→21:09)
[2020-04-26] MEDS: ENOXAPARIN 40 MG/0.4 ML SQ SCH (17:07)
[2020-04-26 19:08] VITALS: BP 107/66
[2020-04-27 01:18] VITALS: BP 103/58
[2020-04-27] MEDS: SODIUM CHLORIDE 0.9% 1,000 ML IV SCH ×3 (05:18→23:04)
[2020-04-27] MEDS: IBUPROFEN 600 MG TABLET PO PRN ×2 (05:21→20:04)
[2020-04-27 07:52] VITALS: BP 107/64
[2020-04-27] MEDS: INSULIN GLARGINE 100 UNITS/ML, PEN SQ-INSULIN SCH ×2 (08:00→20:08)
[2020-04-27] MEDS: INSULIN LISPRO 100 UNITS/ML, PEN SQ-INSULIN SCH ×4 (08:10→20:03)
[2020-04-27] MEDS: PHENAZOPYRIDINE 200 MG TABLET PO SCH ×3 (08:48→20:04)
[2020-04-27] MEDS: TAMSULOSIN 0.4 MG CAP.ER.24H PO SCH (08:48)
[2020-04-27 13:24] VITALS: BP 101/61
[2020-04-27] MEDS: FLUCONAZOLE 200 MG/100 ML 100 ML IV SCH (14:05)
[2020-04-27] MEDS: ENOXAPARIN 40 MG/0.4 ML SQ SCH (16:31)
[2020-04-27 19:49] VITALS: BP 124/67
[2020-04-28 01:50] VITALS: BP 103/64
[2020-04-28] MEDS: IBUPROFEN 600 MG TABLET PO PRN (05:24)
[2020-04-28] MEDS: SODIUM CHLORIDE 0.9% 1,000 ML IV SCH (06:28)
[2020-04-28] MEDS: INSULIN LISPRO 100 UNITS/ML, PEN SQ-INSULIN SCH ×2 (06:30→11:00)
[2020-04-28 06:43] VITALS: BP 114/69
[2020-04-28] MEDS: PHENAZOPYRIDINE 200 MG TABLET PO SCH (08:31)
[2020-04-28] MEDS: TAMSULOSIN 0.4 MG CAP.ER.24H PO SCH (08:32)
[2020-04-28] MEDS: INSULIN GLARGINE 100 UNITS/ML, PEN SQ-INSULIN SCH (08:35)
[2020-04-28] MEDS ORDERED: FLUCONAZOLE 200 MG TABLET PO SCH (09:00)
[2020-04-28] MEDS ORDERED: FLUC200T PO (10:24)
[2020-04-28] MEDS ORDERED: CEFD300C37 PO (10:55)
[2020-04-28] MEDS ORDERED: PHEN-583 PO (10:58)
== END 2020-04-28 13:05 | disposition home health service (06) | DRG 699 ==
LOC: ED 12:08 → EDIP 14:03 → 3N 18:06 → 4NW 04-25 20:40 → DCLOUNGE 04-28 12:59
PROVIDERS: ADMIT Hospitalist; ATTEND Family Medicine
PROC: 0T9B70Z Drainage of Bladder with Drainage Device, Via Natural or Artificial Opening (ICD-10-PCS; principal; 2020-04-24)
PROC: 0T9B80Z Drainage of Bladder with Drainage Device, Via Natural or Artificial Opening Endoscopic (ICD-10-PCS; 2020-04-26)
DX: N30.41 Irradiation cystitis with hematuria (principal); B37.41 Candidal cystitis and urethritis; N36.5 Urethral false passage; Z20.822 Contact with and (suspected) exposure to COVID-19; E11.51 Type 2 diabetes mellitus with diabetic peripheral angiopathy without gangrene; I25.10 Atherosclerotic heart disease of native coronary artery without angina pectoris; E11.65 Type 2 diabetes mellitus with hyperglycemia; N40.0 Benign prostatic hyperplasia without lower urinary tract symptoms; N30.21 Other chronic cystitis with hematuria; Z92.3 Personal history of irradiation; Z85.038 Personal history of other malignant neoplasm of large intestine; Z93.3 Colostomy status; Z79.4 Long term (current) use of insulin; Z90.81 Acquired absence of spleen; Z83.3 Family history of diabetes mellitus; Z82.5 Family history of asthma and other chronic lower respiratory diseases; Z95.5 Presence of coronary angioplasty implant and graft; Z79.899 Other long term (current) drug therapy; Y84.2 Radiological procedure and radiotherapy as the cause of abnormal reaction of the patient, or of later complication, without mention of misadventure at the time of the procedure; Y92.89 Other specified places as the place of occurrence of the external cause
CPT/HCPCS: 36415; 80048; 80053; 81001; 82962; 83605; 85025; 87040; 87086; 87106; 96365; 99285; G0378; J0696; J1650; J1450; J1815; J7030; U0003

== ENCOUNTER → 2020-05-09 | Outpatient (CLI) | payer OTHER, MEDICARE ==
[~2020-05-09] MED LIST changes: +ATOR20TA37 PO; +CEFD300C37 PO; +EMPA10TA PO; +FLUC200T PO; +PHEN-583 PO
== END | disposition home or self-care (01) ==
LOC: WOUND 09:38
PROVIDERS: ATTEND Internal Medicine
DX: E11.621 Type 2 diabetes mellitus with foot ulcer (principal); L97.421 Non-pressure chronic ulcer of left heel and midfoot limited to breakdown of skin; E11.622 Type 2 diabetes mellitus with other skin ulcer; L89.150 Pressure ulcer of sacral region, unstageable; L98.491 Non-pressure chronic ulcer of skin of other sites limited to breakdown of skin; S91.105A Unspecified open wound of left lesser toe(s) without damage to nail, initial encounter; C18.9 Malignant neoplasm of colon, unspecified; E11.69 Type 2 diabetes mellitus with other specified complication; M86.8X7 Other osteomyelitis, ankle and foot; M86.172 Other acute osteomyelitis, left ankle and foot; E11.10 Type 2 diabetes mellitus with ketoacidosis without coma; E11.21 Type 2 diabetes mellitus with diabetic nephropathy; E11.51 Type 2 diabetes mellitus with diabetic peripheral angiopathy without gangrene; E78.5 Hyperlipidemia, unspecified; I25.10 Atherosclerotic heart disease of native coronary artery without angina pectoris; D63.8 Anemia in other chronic diseases classified elsewhere; I49.01 Ventricular fibrillation; I10 Essential (primary) hypertension; L84 Corns and callosities; E11.42 Type 2 diabetes mellitus with diabetic polyneuropathy; E11.610 Type 2 diabetes mellitus with diabetic neuropathic arthropathy; E43 Unspecified severe protein-calorie malnutrition; Z68.20 Body mass index [BMI] 20.0-20.9, adult; Z85.828 Personal history of other malignant neoplasm of skin; Z95.5 Presence of coronary angioplasty implant and graft; Z90.49 Acquired absence of other specified parts of digestive tract; Z89.519 Acquired absence of unspecified leg below knee; Z86.73 Personal history of transient ischemic attack (TIA), and cerebral infarction without residual deficits; Z85.048 Personal history of other malignant neoplasm of rectum, rectosigmoid junction, and anus; Z86.14 Personal history of Methicillin resistant Staphylococcus aureus infection; Z79.01 Long term (current) use of anticoagulants; Z79.02 Long term (current) use of antithrombotics/antiplatelets; Z79.82 Long term (current) use of aspirin; Z79.899 Other long term (current) drug therapy; Z79.4 Long term (current) use of insulin; Z89.412 Acquired absence of left great toe; Z89.422 Acquired absence of other left toe(s); Z93.3 Colostomy status; X58.XXXA Exposure to other specified factors, initial encounter; Y93.89 Activity, other specified; Y92.89 Other specified places as the place of occurrence of the external cause; Y99.8 Other external cause status
CPT/HCPCS: 97597

== ENCOUNTER 2020-05-11 10:37 | Inpatient (IN) | payer OTHER, MEDICARE ==
[2020-05-10 11:50] LABS: BASOPHILS % (AUTO) 1 % (0-1); EOSINOPHILS % (AUTO) 3 % (1-7); LYMPHOCYTES % (AUTO) 11 % (22-44); MEAN CORPUSCULAR HEMOGLOBIN 30.9 pg (27.5-34.5); MEAN CORPUSCULAR HGB CONC 33.2 g/dL (33.2-36.2); MEAN PLATELET VOLUME 7.4 fL (7.4-10.4); MONOCYTES % (AUTO) 8 % (2-9); NEUTROPHILS % (AUTO) 78 % (42-75); PLATELET COUNT 756 x10^3/uL (130-400); RED BLOOD COUNT 3.38 x10^6/uL (4.38-5.82); RED CELL DISTRIBUTION WIDTH 18.8 % (9.4-14.8)
[2020-05-10 12:02] LABS: CHLORIDE 110 mmol/L (98-107); MD NO
[2020-05-10 12:11] LABS: ALANINE AMINOTRANSFERASE 17 U/L (12-78); ALBUMIN 2.7 g/dL (3.4-5.0); ALKALINE PHOSPHATASE 88 U/L (45-117); ANION GAP 10 mmol/L (5-15); BILIRUBIN,TOTAL 0.3 mg/dL (0.2-1.0); CREATININE 1.14 mg/dL (0.7-1.3); TOTAL PROTEIN 7.8 g/dL (6.4-8.2)
[~2020-05-11] VITALS: Ht 190.5 cm; Wt 81.7 kg
[2020-05-11] MEDS ORDERED: CHLORHEXIDINE 15 ML UDC MM ONE (11:30)
[2020-05-11] MEDS ORDERED: LACTATED RINGERS 1,000 ML IV SCH (11:30)
[2020-05-11] MEDS ORDERED: CHLORHEXIDINE 15 ML UDC ONE (11:34)
[2020-05-11] MEDS ORDERED: FENTANYL PF 250 MCG/5ML ONE ×3 (12:04→14:07)
[2020-05-11] MEDS ORDERED: DEXAMETHASONE 4 MG/ML, 1ML ONE (12:29)
[2020-05-11] MEDS ORDERED: ACETAMINOPHEN 325 MG TABLET PO PRN (13:30)
[2020-05-11] MEDS ORDERED: OXYcodone 5 MG/5 ML ORAL.SOL UDC PO PRN (13:30)
[2020-05-11] MEDS ORDERED: LABETALOL 5MG/ML, 20ML IV PRN (13:30)
[2020-05-11] MEDS ORDERED: PROMETHAZINE 25 MG/ML, 1ML IVPush PRN (13:30)
[2020-05-11] MEDS ORDERED: FENTANYL PF 100 MCG/2ML IV PRN (13:30)
[2020-05-11] MEDS ORDERED: PROMETHAZINE 25 MG SUPP PR PRN (13:30)
[2020-05-11] MEDS ORDERED: METOPROLOL 1 MG/ML, 5ML IV PRN (13:30)
[2020-05-11] MEDS ORDERED: LORazepam 2 MG/ML, 1ML IVPush PRN (13:30)
[2020-05-11] MEDS ORDERED: ONDANSETRON 2MG/ML, 2ML IVPush PRN (13:30)
[2020-05-11] MEDS ORDERED: hydrALAzine 20 MG/ML, 1ML IV PRN (13:30)
[2020-05-11] MEDS ORDERED: METHOCARBAMOL 1,000 MG in DEXTROSE 5% 100 ML IV PRN (13:30)
[2020-05-11] MEDS ORDERED: GLYCOPYRROLATE 0.2MG/1ML, 5ML ONE (14:05)
[2020-05-11] MEDS ORDERED: ONDANSETRON 2MG/ML, 2ML ONE (14:05)
[2020-05-11] MEDS ORDERED: CEFAZOLIN 1,000 MG ONE (14:05)
[2020-05-11] MEDS ORDERED: NEOSTIGMINE 1 MG/ML, 10ML ONE (14:05)
[2020-05-11] MEDS ORDERED: PROPOFOL 10 MG/ML, 20ML ONE (14:05)
[2020-05-11] MEDS ORDERED: SUCCINYLCHOLINE 20 MG/ML, 10ML ONE (14:05)
[2020-05-11] MEDS ORDERED: ROCURONIUM 10MG/ML,5ML ONE (14:05)
[2020-05-11] MEDS ORDERED: FENTANYL PF 100 MCG/2ML ONE (15:21)
[2020-05-11] MEDS ORDERED: HYDROmorphone 1 MG/ML, 1ML INJ ONE (15:21)
[2020-05-11] MEDS ORDERED: OXYcodone 5 MG/5 ML ORAL.SOL UDC ONE (15:21)
[2020-05-11] MEDS: HYDROmorphone 1 MG/ML, 1ML INJ IVPush PRN ×2 (15:27→15:50)
[2020-05-11] MEDS ORDERED: HYDROmorphone 2MG TABLET PO PRN (17:30)
[2020-05-11] MEDS: ACETAMINOPHEN 500 MG TABLET PO SCH (17:44)
[2020-05-11 20:17] VITALS: BP 108/71
[2020-05-11] MEDS: INSULIN REGULAR, HUMAN 100 UNITS/ML, 3ML MEDIUM DOSE SS SQ-INSULIN SCH (21:26)
[2020-05-11] MEDS: LACTATED RINGERS 1,000 ML IV SCH (22:00)
[2020-05-11] MEDS: OXYcodone IR 5MG TABLET PO PRN (22:39)
[2020-05-12] MEDS: ACETAMINOPHEN 500 MG TABLET PO SCH ×5 (00:30→23:40)
[2020-05-12 00:51] VITALS: BP 96/63
[2020-05-12 03:37] LABS: MEAN CORPUSCULAR HEMOGLOBIN 30.8 pg (27.5-34.5); MEAN CORPUSCULAR HGB CONC 32.8 g/dL (33.2-36.2); MEAN PLATELET VOLUME 7.6 fL (7.4-10.4); PLATELET COUNT 684 x10^3/uL (130-400); RED BLOOD COUNT 3.12 x10^6/uL (4.38-5.82); RED CELL DISTRIBUTION WIDTH 18.6 % (9.4-14.8)
[2020-05-12 03:46] LABS: ANION GAP 5 mmol/L (5-15); CALCIUM 8.8 mg/dL (8.5-10.1); CHLORIDE 107 mmol/L (98-107); CREATININE 1.18 mg/dL (0.7-1.3)
[2020-05-12 04:09] LABS: MD YES
[2020-05-12 04:11] LABS: BAND#(MANUAL) 0.27 x10^3/uL; BANDS%(MANUAL) 1 % (0-7); LYMPH#(MANUAL) 2.39 x10^3/uL (1-3.4); LYMPHS% (MANUAL) 9 % (22-44); METAMYELOCYTES# (MANUAL) 0.27 x10^3/uL (0-0); METAMYELOCYTES% (MANUAL) 1 % (0-1); MONOS#(MANUAL) 1.33 x10^3/uL (0.3-2.7); MONOS% (MANUAL) 5 % (2-9); SEG#(MANUAL) 22.26 x10^3/uL (1.8-6.8); SEGS% (MANUAL) 84 % (42-75)
[2020-05-12 04:12] LABS: ANISOCYTOSIS 1+; ECHINOCYTES 1+; OVALOCYTES 1+
[2020-05-12 04:13] LABS: <PLATELET ESTIMATE> INCREASED; <PLT MORPHOLOGY> NORMAL PLT MORPH; ACANTHOCYTES 1+
[2020-05-12 04:54] VITALS: BP 111/71
[2020-05-12] MEDS: CLOPIDOGREL 75 MG TABLET PO SCH (08:18)
[2020-05-12] MEDS: TAMSULOSIN 0.4 MG CAP.ER.24H PO SCH (08:18)
[2020-05-12] MEDS: INSULIN REGULAR, HUMAN 100 UNITS/ML, 3ML MEDIUM DOSE SS SQ-INSULIN SCH ×4 (08:18→22:43)
[2020-05-12] MEDS: ENOXAPARIN 40 MG/0.4 ML SQ SCH (08:20)
[2020-05-12] MEDS: JARDIANCE 10MG HOMEMEDPO SCH (08:20)
[2020-05-12 08:35] VITALS: BP 104/64
[2020-05-12 14:10] VITALS: BP 161/67
[2020-05-12] MEDS: LACTATED RINGERS 1,000 ML IV SCH (18:00)
[2020-05-12 18:42] VITALS: BP 104/68
[2020-05-12] MEDS ORDERED: INSULIN GLARGINE 100 UNITS/ML, PEN SQ-INSULIN SCH (21:00)
[2020-05-12] MEDS: FAMOTIDINE 20 MG TABLET PO SCH (22:14)
[2020-05-12] MEDS: ATORVASTATIN 20 MG TABLET PO SCH (22:15)
[2020-05-13 01:47] VITALS: BP 95/59
[2020-05-13] MEDS: ACETAMINOPHEN 500 MG TABLET PO SCH ×3 (06:23→20:42)
[2020-05-13] MEDS: INSULIN REGULAR, HUMAN 100 UNITS/ML, 3ML MEDIUM DOSE SS SQ-INSULIN SCH ×4 (07:00→21:00)
[2020-05-13 07:20] VITALS: BP 107/65
[2020-05-13] MEDS ORDERED: INSULIN GLARGINE 100 UNITS/ML, PEN SQ-INSULIN SCH ×2 (09:00→21:00)
[2020-05-13] MEDS: JARDIANCE 10MG HOMEMEDPO SCH (09:00)
[2020-05-13] MEDS: CLOPIDOGREL 75 MG TABLET PO SCH (09:22)
[2020-05-13] MEDS: FAMOTIDINE 20 MG TABLET PO SCH ×2 (09:22→20:42)
[2020-05-13] MEDS: TAMSULOSIN 0.4 MG CAP.ER.24H PO SCH (09:22)
[2020-05-13] MEDS: ENOXAPARIN 40 MG/0.4 ML SQ SCH (09:23)
[2020-05-13 10:25] LABS: BASOPHILS % (AUTO) 0 % (0-1); EOSINOPHILS % (AUTO) 3 % (1-7); LYMPHOCYTES % (AUTO) 8 % (22-44); MEAN CORPUSCULAR HEMOGLOBIN 31.2 pg (27.5-34.5); MEAN CORPUSCULAR HGB CONC 33.8 g/dL (33.2-36.2); MEAN PLATELET VOLUME 7.7 fL (7.4-10.4); MONOCYTES % (AUTO) 8 % (2-9); NEUTROPHILS % (AUTO) 82 % (42-75); PLATELET COUNT 554 x10^3/uL (130-400); RED BLOOD COUNT 2.56 x10^6/uL (4.38-5.82); RED CELL DISTRIBUTION WIDTH 18.8 % (9.4-14.8)
[2020-05-13 10:37] LABS: ANION GAP 7 mmol/L (5-15); CALCIUM 8.4 mg/dL (8.5-10.1); CHLORIDE 106 mmol/L (98-107)
[2020-05-13 10:39] LABS: CREATININE 0.81 mg/dL (0.7-1.3)
[2020-05-13 10:51] LABS: MD SCAN
[2020-05-13 13:10] VITALS: BP 104/64
[2020-05-13] MEDS: LACTATED RINGERS 1,000 ML IV SCH (14:00)
[2020-05-13 19:39] VITALS: BP 119/66
[2020-05-13] MEDS: ATORVASTATIN 20 MG TABLET PO SCH (20:42)
[2020-05-14 02:22] VITALS: BP_SYST 105; BP_SYST 135; BP_DIAS 66; BP_DIAS 80
[2020-05-14] MEDS: ACETAMINOPHEN 500 MG TABLET PO SCH ×3 (03:24→15:25)
[2020-05-14 03:53] LABS: BASOPHILS % (AUTO) 0 % (0-1); EOSINOPHILS % (AUTO) 3 % (1-7); LYMPHOCYTES % (AUTO) 11 % (22-44); MEAN CORPUSCULAR HGB CONC 33.8 g/dL (33.2-36.2); MEAN PLATELET VOLUME 7.4 fL (7.4-10.4); MONOCYTES % (AUTO) 9 % (2-9); NEUTROPHILS % (AUTO) 78 % (42-75); PLATELET COUNT 578 x10^3/uL (130-400); RED BLOOD COUNT 2.61 x10^6/uL (4.38-5.82); RED CELL DISTRIBUTION WIDTH 18.3 % (9.4-14.8)
[2020-05-14 03:56] LABS: ANION GAP 7 mmol/L (5-15); CALCIUM 8.3 mg/dL (8.5-10.1); CHLORIDE 107 mmol/L (98-107); CREATININE 0.85 mg/dL (0.7-1.3)
[2020-05-14 04:22] LABS: MD NO
[2020-05-14 07:00] VITALS: BP 103/66
[2020-05-14] MEDS: INSULIN REGULAR, HUMAN 100 UNITS/ML, 3ML MEDIUM DOSE SS SQ-INSULIN SCH ×2 (07:00→10:47)
[2020-05-14] MEDS: OXYcodone IR 5MG TABLET PO PRN ×2 (07:26→12:55)
[2020-05-14] MEDS: JARDIANCE 10MG HOMEMEDPO SCH (07:37)
[2020-05-14 08:26] LABS: BASOPHILS % (AUTO) 0 % (0-1); EOSINOPHILS % (AUTO) 3 % (1-7); LYMPHOCYTES % (AUTO) 8 % (22-44); MEAN CORPUSCULAR HEMOGLOBIN 31.5 pg (27.5-34.5); MEAN CORPUSCULAR HGB CONC 34.2 g/dL (33.2-36.2); MEAN PLATELET VOLUME 7.5 fL (7.4-10.4); MONOCYTES % (AUTO) 8 % (2-9); NEUTROPHILS % (AUTO) 81 % (42-75); PLATELET COUNT 643 x10^3/uL (130-400); RED BLOOD COUNT 2.76 x10^6/uL (4.38-5.82); RED CELL DISTRIBUTION WIDTH 18.7 % (9.4-14.8)
[2020-05-14 08:29] LABS: MD NO
[2020-05-14] MEDS: INSULIN GLARGINE 100 UNITS/ML, PEN SQ-INSULIN SCH ×2 (09:00→10:46)
[2020-05-14] MEDS: ENOXAPARIN 40 MG/0.4 ML SQ SCH (09:00)
[2020-05-14] MEDS: TAMSULOSIN 0.4 MG CAP.ER.24H PO SCH (09:27)
[2020-05-14] MEDS: FAMOTIDINE 20 MG TABLET PO SCH (09:27)
[2020-05-14] MEDS: CLOPIDOGREL 75 MG TABLET PO SCH (09:27)
[2020-05-14] MEDS: LACTATED RINGERS 1,000 ML IV SCH (10:00)
[2020-05-14] MEDS ORDERED: HYDR2TAB40 PO (11:21)
[2020-05-14 13:25] VITALS: BP 104/66
[2020-05-14 13:46] VITALS: BP 96/67
[2020-05-17] MEDS ORDERED: CEPH500T PO (09:40)
== END 2020-05-14 15:30 | disposition home or self-care (01) | DRG 330 ==
LOC: ORIP 10:37 → 4NE 17:01
PROVIDERS: ADMIT Surgery; ATTEND Surgery
PROC: 0DBP0ZZ Excision of Rectum, Open Approach (ICD-10-PCS; 2020-05-11)
PROC: 0DBN0ZZ Excision of Sigmoid Colon, Open Approach (ICD-10-PCS; principal; 2020-05-11 13:15)
DX: C18.7 Malignant neoplasm of sigmoid colon (principal); C20 Malignant neoplasm of rectum; Z92.21 Personal history of antineoplastic chemotherapy; Z93.3 Colostomy status; Z20.822 Contact with and (suspected) exposure to COVID-19
CPT/HCPCS: 36415; 80048; 80053; 82947; 82962; 85025; 86850; 86900; 87635; 88304; 88309; 93005; G0378; J0690; J1100; J1170; J1650; J1815; J2405; J2704; J2710; J3010; J0330; J2800; J7120

== ENCOUNTER 2020-05-15 17:22 | Inpatient (IN) | payer OTHER, MEDICARE ==
[~2020-05-15] VITALS: Ht 190.5 cm; Wt 83.0 kg
[~2020-05-15 17:22] MED LIST changes: +HYDR2TAB40 PO
--- NOTE | 2020-05-15 17:38 | NUR ---
PATIENT ARRIVES WITH RECTAL BLEEDING AND HISTORY OF RECTAL CANCER. HE HAD RECTAL CANCER TUMOR REMOVED THREE DAYS AGO, AND COLOSTOMY REVERESED. SINCE THEN HE WAS DC YESTERDAY, BUT IN LAST 24 HOURS HE IS INCREASINGLY WEAK. LAST TIME THEY PLACED CHRIS THEY PERFED PROSTATE AND HE IS HAVING BLOODY URINE IN HIS CHRIS BAG. SINCE THEN HE HAS WEAKNESS, CAN BARELY WALK
[2020-05-15] MEDS ORDERED: SODIUM CHLORIDE FLUSH 10ML SYR IVF ONE (18:00)
[2020-05-15] MEDS ORDERED: SODIUM CHLORIDE 0.9% 1,000ML IVBOLUS ONE ×2 (18:00→20:30)
[2020-05-15] MEDS ORDERED: ONDANSETRON 2MG/ML, 2ML IVPush ONE (18:00)
[2020-05-15] MEDS ORDERED: SODIUM CHLORIDE 0.9% 1,000 ML IV ONE (18:00)
[2020-05-15] MEDS ORDERED: HYDROmorphone 2 MG/ML, 1ML IVPush PRN ×2 (18:00→23:00)
[2020-05-15] MEDS ORDERED: ONDANSETRON 2MG/ML, 2ML ONE ×2 (18:17→22:03)
[2020-05-15] MEDS ORDERED: HYDROmorphone 1 MG/ML, 1ML INJ ONE (18:17)
[2020-05-15 18:21] LABS: ALANINE AMINOTRANSFERASE 16 U/L (12-78); ALBUMIN 2.2 g/dL (3.4-5.0); ANION GAP 11 mmol/L (5-15); CALCIUM 8.4 mg/dL (8.5-10.1); CHLORIDE 104 mmol/L (98-107); CREATININE 1.13 mg/dL (0.7-1.3)
[2020-05-15 18:25] LABS: BASOPHILS % (AUTO) 0 % (0-1); EOSINOPHILS % (AUTO) 0 % (1-7); LYMPHOCYTES % (AUTO) 5 % (22-44); MEAN CORPUSCULAR HEMOGLOBIN 31.3 pg (27.5-34.5); MEAN CORPUSCULAR HGB CONC 33.7 g/dL (33.2-36.2); MEAN PLATELET VOLUME 7.6 fL (7.4-10.4); MONOCYTES % (AUTO) 6 % (2-9); NEUTROPHILS % (AUTO) 89 % (42-75); PLATELET COUNT 611 x10^3/uL (130-400); RED BLOOD COUNT 2.72 x10^6/uL (4.38-5.82)
[2020-05-15 18:26] LABS: ALKALINE PHOSPHATASE 85 U/L (45-117); BILIRUBIN,TOTAL 0.5 mg/dL (0.2-1.0); TOTAL PROTEIN 7.1 g/dL (6.4-8.2); TROPONIN I < 0.015 ng/mL (0.000-0.045)
[2020-05-15 18:29] LABS: MD NO
--- NOTE | 2020-05-15 18:37 | NUR ---
patient left for radiology. left to drop daughter off and then will return.
[2020-05-15 18:46] LABS: MICROSCOPIC INDICATED
--- NOTE | 2020-05-15 19:07 | NUR ---
cleaned patient of dark wine colored stool that is soft blob. changed linens with jaz anne and gave report sbar
--- NOTE | 2020-05-15 19:12 | NUR ---
REPORT RECIEVED FROM ADRIANA HUBER
[2020-05-15 19:23] LABS: INTERNATIONAL NORMALIZED RATIO 1.05 (0.93-1.1); PROTHROMBIN TIME 11.1 Seconds (9.6-11.5)
--- NOTE | 2020-05-15 19:46 | NUR ---
GUAIAC TEST DONE, + FOR BLOOD IN STOOL, ERP AWARE. AT [facility].
[2020-05-15] MEDS ORDERED: OMNIPAQUE 350 MG/ML, 100ML BOTTLE ONE (20:15)
[2020-05-15] MEDS ORDERED: PIPERACILLIN/TAZO/PMX 3.375GM 50 ML IV ONE (20:30)
--- NOTE | 2020-05-15 21:09 | NUR ---
REPORT GIVEN TO WALLPAPERER
--- NOTE | 2020-05-15 21:09 | NUR ---
REPORT GIVEN TO KAIA HUBER
--- NOTE | 2020-05-15 21:09 | NUR ---
CAL VALLEJO WALKED TO LAB
--- NOTE | 2020-05-15 21:20 | NUR ---
LAB AT BEDSIDE FOR BLOOD CULTURES
--- NOTE | 2020-05-15 21:34 | NUR ---
[facility] AT BEDSIDE
--- NOTE | 2020-05-15 21:40 | NUR ---
PT TO OR
[2020-05-15] MEDS ORDERED: FENTANYL PF 250 MCG/5ML ONE (21:41)
[2020-05-15] MEDS ORDERED: MIDAZOLAM 1 MG/ML, 2ML ONE (21:41)
[2020-05-15] MEDS ORDERED: VASOPRESSIN 20 UNIT/ML, 1ML ONE (22:03)
[2020-05-15] MEDS ORDERED: ROCURONIUM 10MG/ML,5ML ONE ×2 (22:03→22:23)
[2020-05-15] MEDS ORDERED: PROPOFOL 10 MG/ML, 20ML ONE ×2 (22:03→22:23)
[2020-05-15] MEDS ORDERED: SUCCINYLCHOLINE 20 MG/ML, 10ML ONE ×2 (22:03→22:23)
[2020-05-15] MEDS ORDERED: DEXAMETHASONE 4 MG/ML, 5ML ONE (22:03)
[2020-05-15] MEDS ORDERED: GENTAMICIN 80 MG/2 ML ONE ×3 (22:20→22:23)
[2020-05-15] MEDS ORDERED: CEFAZOLIN 1,000 MG ONE ×2 (22:23)
[2020-05-15] MEDS ORDERED: FLUCONAZOLE 200 MG/100 ML 100 ML IV ONE (22:30)
[2020-05-15] MEDS ORDERED: EPINEPHRINE 1 MG/ML, 1ML ONE (22:51)
[2020-05-15] MEDS ORDERED: BUPIVACAINE/PF 0.25% ONE (22:51)
[2020-05-15] MEDS ORDERED: MELATONIN 5 MG TABLET PO PRN (23:00)
[2020-05-15] MEDS ORDERED: ACETAMINOPHEN 325 MG TABLET PO PRN ×2 (23:00→23:30)
[2020-05-15] MEDS ORDERED: ONDANSETRON 2MG/ML, 2ML IVPush PRN ×2 (23:00→23:30)
[2020-05-15] MEDS ORDERED: POLYETHYLENE GLYCOL 17 GM PACKET PO PRN (23:00)
[2020-05-15] MEDS ORDERED: BUPIVACAINE/PF-EPI 0.25% 1:200K INFIL ONE (23:27)
[2020-05-15] MEDS ORDERED: ALBUTEROL SULFATE 2.5 MG/3 ML NPPB PRN (23:30)
[2020-05-15] MEDS ORDERED: FENTANYL PF 100 MCG/2ML IV PRN (23:30)
[2020-05-15] MEDS ORDERED: MEPERIDINE/PF 25MG/0.5ML IVPush PRN (23:30)
[2020-05-15] MEDS ORDERED: EPHEDRINE 50 MG/ML, 1ML IVPush PRN (23:30)
[2020-05-15] MEDS ORDERED: LABETALOL 5MG/ML, 20ML IV PRN (23:30)
[2020-05-15] MEDS ORDERED: PROMETHAZINE 12.5 MG SUPP PR PRN (23:30)
[2020-05-15] MEDS ORDERED: DIAZEPAM 5 MG/ML, 2ML IVPush PRN (23:30)
[2020-05-15] MEDS ORDERED: PROMETHAZINE 25 MG/ML, 1ML IVPush PRN (23:30)
[2020-05-15] MEDS ORDERED: OXYcodone 5 MG/5 ML ORAL.SOL UDC PO PRN (23:30)
[2020-05-15] MEDS ORDERED: DIPHENHYDRAMINE 50 MG/ML, 1ML IVPush PRN ×2 (23:30)
[2020-05-15] MEDS ORDERED: HYDROmorphone 1 MG/ML, 1ML INJ IVPush PRN (23:30)
[2020-05-15] MEDS ORDERED: MIDAZOLAM 1 MG/ML, 2ML IV PRN (23:30)
[2020-05-15] MEDS ORDERED: hydrALAzine 20 MG/ML, 1ML IV PRN (23:30)
[2020-05-15] MEDS ORDERED: OMNIPAQUE 350 MG/ML, 50 ML BOTTLE IV ONE (23:34)
[2020-05-16] MEDS ORDERED: OXYcodone 5 MG/5 ML ORAL.SOL UDC ONE (00:05)
[2020-05-16] MEDS: PIPERACILLIN/TAZO/PMX 3.375GM 50 ML IV SCH ×4 (00:59→18:38)
[2020-05-16] MEDS: CEFTRIAXONE PMX 2GM/50ML 50 ML IVPB SCH (01:57)
[2020-05-16] MEDS: INSULIN LISPRO 100 UNITS/ML, PEN SQ-INSULIN SCH ×5 (01:58→20:43)
[2020-05-16 04:06] VITALS: BP 91/53
[2020-05-16] MEDS: LACTATED RINGERS 1,000 ML IV SCH ×2 (05:13→15:47)
[2020-05-16 07:23] VITALS: BP 92/55
[2020-05-16] MEDS: DOCUSATE 100 MG CAPSULE PO SCH ×2 (09:05→20:35)
[2020-05-16] MEDS: MULTIVITAMIN 1 TABLET PO SCH (09:05)
[2020-05-16] MEDS: INSULIN GLARGINE 100 UNITS/ML, PEN SQ-INSULIN SCH ×2 (09:06→20:42)
[2020-05-16 09:28] LABS: BASOPHILS % (AUTO) 0 % (0-1); EOSINOPHILS % (AUTO) 0 % (1-7); LYMPHOCYTES % (AUTO) 7 % (22-44); MEAN CORPUSCULAR HEMOGLOBIN 30.8 pg (27.5-34.5); MEAN CORPUSCULAR HGB CONC 33.3 g/dL (33.2-36.2); MEAN PLATELET VOLUME 7.8 fL (7.4-10.4); MONOCYTES % (AUTO) 3 % (2-9); NEUTROPHILS % (AUTO) 90 % (42-75); PLATELET COUNT 547 x10^3/uL (130-400); RED BLOOD COUNT 2.46 x10^6/uL (4.38-5.82)
[2020-05-16 09:36] LABS: CHLORIDE 107 mmol/L (98-107)
[2020-05-16 09:50] LABS: ANION GAP 11 mmol/L (5-15); CALCIUM 8.5 mg/dL (8.5-10.1); CREATININE 1.03 mg/dL (0.7-1.3)
[2020-05-16 10:34] LABS: MD SCAN
[2020-05-16 13:47] VITALS: BP 97/64
[2020-05-16 18:26] VITALS: BP 110/54
[2020-05-16] MEDS ORDERED: FAMOTIDINE 40 MG TABLET ONE (20:31)
[2020-05-16] MEDS: FAMOTIDINE 20 MG TABLET PO SCH (20:35)
[2020-05-16] MEDS: ATORVASTATIN 20 MG TABLET PO SCH (20:35)
[2020-05-16] MEDS: OXYcodone IR 5MG TABLET PO PRN (21:53)
[2020-05-16] MEDS: FLUCONAZOLE 200 MG/100 ML 100 ML IV SCH (23:32)
[2020-05-17] MEDS: PIPERACILLIN/TAZO/PMX 3.375GM 50 ML IV SCH ×2 (01:03→07:41)
[2020-05-17 01:08] VITALS: BP 103/62
[2020-05-17] MEDS: CEFTRIAXONE PMX 2GM/50ML 50 ML IVPB SCH (01:47)
[2020-05-17] MEDS: LACTATED RINGERS 1,000 ML IV SCH (04:33)
[2020-05-17 05:29] LABS: MEAN CORPUSCULAR HEMOGLOBIN 30.6 pg (27.5-34.5); MEAN CORPUSCULAR HGB CONC 33.5 g/dL (33.2-36.2); MEAN PLATELET VOLUME 7.5 fL (7.4-10.4); PLATELET COUNT 566 x10^3/uL (130-400); RED BLOOD COUNT 2.37 x10^6/uL (4.38-5.82); RED CELL DISTRIBUTION WIDTH 18.1 % (9.4-14.8)
[2020-05-17 06:03] LABS: MD YES
[2020-05-17 06:04] LABS: EOS#(MANUAL) 0.28 x10^3/uL (0.0-0.4); EOS% (MANUAL) 2 % (1-7)
[2020-05-17 06:06] LABS: ANISOCYTOSIS 1+; ECHINOCYTES 1+; LYMPH#(MANUAL) 0.71 x10^3/uL (1-3.4); LYMPHS% (MANUAL) 5 % (22-44); MONOS#(MANUAL) 1.42 x10^3/uL (0.3-2.7); MONOS% (MANUAL) 10 % (2-9); POLYCHROMASIA 1+; SEG#(MANUAL) 11.79 x10^3/uL (1.8-6.8); SEGS% (MANUAL) 83 % (42-75)
[2020-05-17 06:08] LABS: <PLATELET ESTIMATE> INCREASED; <PLT MORPHOLOGY> NORMAL PLT MORPH
[2020-05-17 07:27] VITALS: BP 110/67
[2020-05-17] MEDS: INSULIN LISPRO 100 UNITS/ML, PEN SQ-INSULIN SCH ×4 (07:41→20:36)
[2020-05-17] MEDS: MULTIVITAMIN 1 TABLET PO SCH (09:35)
[2020-05-17] MEDS: INSULIN GLARGINE 100 UNITS/ML, PEN SQ-INSULIN SCH ×2 (09:35→20:37)
[2020-05-17] MEDS: DOCUSATE 100 MG CAPSULE PO SCH ×2 (09:35→21:22)
[2020-05-17] MEDS: FAMOTIDINE 20 MG TABLET PO SCH ×2 (09:35→21:23)
[2020-05-17] MEDS ORDERED: CEPH500T PO ×2 (09:40)
[2020-05-17] MEDS: OXYcodone IR 5MG TABLET PO PRN ×3 (09:50→23:47)
[2020-05-17] MEDS: POLYETHYLENE GLYCOL 17 GM PACKET PO SCH ×2 (10:39→21:23)
[2020-05-17 13:26] VITALS: BP 108/65
[2020-05-17 18:41] VITALS: BP 107/64
[2020-05-17] MEDS: ATORVASTATIN 20 MG TABLET PO SCH (21:23)
[2020-05-17] MEDS: FLUCONAZOLE 200 MG/100 ML 100 ML IV SCH (23:47)
[2020-05-18 00:21] VITALS: BP 95/56
[2020-05-18] MEDS: CEFTRIAXONE PMX 2GM/50ML 50 ML IVPB SCH (01:09)
[2020-05-18 06:09] VITALS: BP 112/67
[2020-05-18] MEDS: INSULIN LISPRO 100 UNITS/ML, PEN SQ-INSULIN SCH ×4 (07:00→20:51)
[2020-05-18] MEDS: OXYcodone IR 5MG TABLET PO PRN ×3 (07:30→22:14)
[2020-05-18] MEDS: INSULIN GLARGINE 100 UNITS/ML, PEN SQ-INSULIN SCH ×2 (08:01→20:51)
[2020-05-18] MEDS: POLYETHYLENE GLYCOL 17 GM PACKET PO SCH ×2 (08:24→20:51)
[2020-05-18] MEDS: MULTIVITAMIN 1 TABLET PO SCH (08:24)
[2020-05-18] MEDS: FAMOTIDINE 20 MG TABLET PO SCH ×2 (08:24→20:49)
[2020-05-18] MEDS: DOCUSATE 100 MG CAPSULE PO SCH ×2 (08:24→20:50)
[2020-05-18] MEDS ORDERED: NITR100C6 PO (10:27)
[2020-05-18] MEDS: BISACODYL 10 MG SUPP PR SCH (18:25)
[2020-05-18 20:14] VITALS: BP 107/61
[2020-05-18] MEDS ORDERED: FAMOTIDINE 40 MG TABLET ONE (20:43)
[2020-05-18] MEDS: NITROFURANTOIN (MACROBID) 100 MG CAPSULE PO SCH (20:50)
[2020-05-18] MEDS: ATORVASTATIN 20 MG TABLET PO SCH (20:51)
[2020-05-18] MEDS: FLUCONAZOLE 200 MG/100 ML 100 ML IV SCH (22:15)
[2020-05-19 02:26] VITALS: BP 115/69
[2020-05-19 06:33] VITALS: BP 112/62
[2020-05-19] MEDS: INSULIN LISPRO 100 UNITS/ML, PEN SQ-INSULIN SCH ×2 (07:00→12:03)
[2020-05-19] MEDS: INSULIN GLARGINE 100 UNITS/ML, PEN SQ-INSULIN SCH (08:37)
[2020-05-19] MEDS: OXYcodone IR 5MG TABLET PO PRN (08:39)
[2020-05-19] MEDS: POLYETHYLENE GLYCOL 17 GM PACKET PO SCH (08:39)
[2020-05-19] MEDS: NITROFURANTOIN (MACROBID) 100 MG CAPSULE PO SCH (08:39)
[2020-05-19] MEDS: MULTIVITAMIN 1 TABLET PO SCH (08:40)
[2020-05-19] MEDS: FAMOTIDINE 20 MG TABLET PO SCH (08:40)
[2020-05-19] MEDS: BISACODYL 10 MG SUPP PR SCH (08:40)
[2020-05-19] MEDS: DOCUSATE 100 MG CAPSULE PO SCH (08:40)
[2020-05-19 12:18] VITALS: BP 110/68
== END 2020-05-19 14:19 | DRG 853 ==
LOC: ED 18:12 → EDIP 20:17 → 4NE 05-16 00:35 → 4NW 05-16 17:01
PROVIDERS: ADMIT Family Medicine; ATTEND Hospitalist
PROC: 0T568ZZ Destruction of Right Ureter, Via Natural or Artificial Opening Endoscopic (ICD-10-PCS; 2020-05-15)
PROC: 0T768DZ Dilation of Right Ureter with Intraluminal Device, Via Natural or Artificial Opening Endoscopic (ICD-10-PCS; 2020-05-15)
PROC: 0TP98DZ Removal of Intraluminal Device from Ureter, Via Natural or Artificial Opening Endoscopic (ICD-10-PCS; 2020-05-15)
PROC: 0TCB8ZZ Extirpation of Matter from Bladder, Via Natural or Artificial Opening Endoscopic (ICD-10-PCS; 2020-05-15)
PROC: 0T9B30Z Drainage of Bladder with Drainage Device, Percutaneous Approach (ICD-10-PCS; principal; 2020-05-15 21:30)
DX: A41.9 Sepsis, unspecified organism (principal); E43 Unspecified severe protein-calorie malnutrition; N13.6 Pyonephrosis; T83.518A Infection and inflammatory reaction due to other urinary catheter, initial encounter; D62 Acute posthemorrhagic anemia; N30.41 Irradiation cystitis with hematuria; M86.9 Osteomyelitis, unspecified; Z20.822 Contact with and (suspected) exposure to COVID-19; D63.8 Anemia in other chronic diseases classified elsewhere; E11.51 Type 2 diabetes mellitus with diabetic peripheral angiopathy without gangrene; E11.65 Type 2 diabetes mellitus with hyperglycemia; E86.0 Dehydration; I25.10 Atherosclerotic heart disease of native coronary artery without angina pectoris; K59.00 Constipation, unspecified; G62.9 Polyneuropathy, unspecified; N36.5 Urethral false passage; T40.605A Adverse effect of unspecified narcotics, initial encounter; Y84.6 Urinary catheterization as the cause of abnormal reaction of the patient, or of later complication, without mention of misadventure at the time of the procedure; Y84.2 Radiological procedure and radiotherapy as the cause of abnormal reaction of the patient, or of later complication, without mention of misadventure at the time of the procedure; Z79.4 Long term (current) use of insulin; Z85.048 Personal history of other malignant neoplasm of rectum, rectosigmoid junction, and anus; Z87.440 Personal history of urinary (tract) infections; Z92.21 Personal history of antineoplastic chemotherapy; Z92.3 Personal history of irradiation; Z93.3 Colostomy status; Z79.899 Other long term (current) drug therapy; Z79.891 Long term (current) use of opiate analgesic; Z79.01 Long term (current) use of anticoagulants; Z90.81 Acquired absence of spleen; Z83.6 Family history of other diseases of the respiratory system; Z83.3 Family history of diabetes mellitus; D47.3 Essential (hemorrhagic) thrombocythemia; D72.829 Elevated white blood cell count, unspecified; Z68.22 Body mass index [BMI] 22.0-22.9, adult
CPT/HCPCS: 36415; 71045; 74177; 80048; 80053; 81001; 82962; 83036; 83605; 83690; 83735; 84100; 84484; 85025; 85610; 85730; 87040; 87077; 87086; 87186; 87635; 93005; G0378; J0171; J0690; J0696; J1100; J1170; J2250; J2405; J2543; J2704; J3010; Q9967; C1758; C1769; C2617; J0330; J1450; J1580; J1815; J7030; J7120

== ENCOUNTER 2020-06-22 08:04 | Outpatient (CLI) | payer OTHER, MEDICARE ==
[~2020-06-22 08:04] MED LIST changes: -ASPI-515 PO; +ASPI-963 PO; +CEPH500T PO; +NITR100C6 PO
== END 2020-06-22 23:59 | disposition home or self-care (01) ==
LOC: WOUND 08:04
PROVIDERS: ATTEND Internal Medicine
DX: E11.621 Type 2 diabetes mellitus with foot ulcer (principal); L97.421 Non-pressure chronic ulcer of left heel and midfoot limited to breakdown of skin; L97.411 Non-pressure chronic ulcer of right heel and midfoot limited to breakdown of skin; E11.622 Type 2 diabetes mellitus with other skin ulcer; L89.150 Pressure ulcer of sacral region, unstageable; L98.491 Non-pressure chronic ulcer of skin of other sites limited to breakdown of skin; S91.105D Unspecified open wound of left lesser toe(s) without damage to nail, subsequent encounter; C18.9 Malignant neoplasm of colon, unspecified; E11.69 Type 2 diabetes mellitus with other specified complication; M86.172 Other acute osteomyelitis, left ankle and foot; E11.10 Type 2 diabetes mellitus with ketoacidosis without coma; E11.21 Type 2 diabetes mellitus with diabetic nephropathy; E11.51 Type 2 diabetes mellitus with diabetic peripheral angiopathy without gangrene; E78.5 Hyperlipidemia, unspecified; I25.10 Atherosclerotic heart disease of native coronary artery without angina pectoris; D63.8 Anemia in other chronic diseases classified elsewhere; I49.01 Ventricular fibrillation; L84 Corns and callosities; E11.42 Type 2 diabetes mellitus with diabetic polyneuropathy; E11.610 Type 2 diabetes mellitus with diabetic neuropathic arthropathy; E11.22 Type 2 diabetes mellitus with diabetic chronic kidney disease; I12.9 Hypertensive chronic kidney disease with stage 1 through stage 4 chronic kidney disease, or unspecified chronic kidney disease; N18.9 Chronic kidney disease, unspecified; E43 Unspecified severe protein-calorie malnutrition; Z68.20 Body mass index [BMI] 20.0-20.9, adult; Z85.828 Personal history of other malignant neoplasm of skin; Z95.5 Presence of coronary angioplasty implant and graft; Z90.49 Acquired absence of other specified parts of digestive tract; Z89.519 Acquired absence of unspecified leg below knee; Z86.73 Personal history of transient ischemic attack (TIA), and cerebral infarction without residual deficits; Z85.048 Personal history of other malignant neoplasm of rectum, rectosigmoid junction, and anus; Z86.14 Personal history of Methicillin resistant Staphylococcus aureus infection; Z79.01 Long term (current) use of anticoagulants; Z79.02 Long term (current) use of antithrombotics/antiplatelets; Z79.82 Long term (current) use of aspirin; Z79.899 Other long term (current) drug therapy; Z79.4 Long term (current) use of insulin; Z89.412 Acquired absence of left great toe; Z89.422 Acquired absence of other left toe(s); Z93.3 Colostomy status; X58.XXXD Exposure to other specified factors, subsequent encounter
CPT/HCPCS: 99213; G0463

== ENCOUNTER → 2020-07-06 | Outpatient (CLI) | payer OTHER, MEDICARE | END | disposition home or self-care (01) | LOC: WOUND 08:55 | PROVIDERS: ATTEND Internal Medicine | DX: E11.621 Type 2 diabetes mellitus with foot ulcer (principal); L97.421 Non-pressure chronic ulcer of left heel and midfoot limited to breakdown of skin; L97.411 Non-pressure chronic ulcer of right heel and midfoot limited to breakdown of skin; E11.622 Type 2 diabetes mellitus with other skin ulcer; L89.150 Pressure ulcer of sacral region, unstageable; L98.491 Non-pressure chronic ulcer of skin of other sites limited to breakdown of skin; S91.105D Unspecified open wound of left lesser toe(s) without damage to nail, subsequent encounter; C18.9 Malignant neoplasm of colon, unspecified; E11.69 Type 2 diabetes mellitus with other specified complication; M86.172 Other acute osteomyelitis, left ankle and foot; E11.10 Type 2 diabetes mellitus with ketoacidosis without coma; E11.21 Type 2 diabetes mellitus with diabetic nephropathy; E11.51 Type 2 diabetes mellitus with diabetic peripheral angiopathy without gangrene; E78.5 Hyperlipidemia, unspecified; I25.10 Atherosclerotic heart disease of native coronary artery without angina pectoris; D63.8 Anemia in other chronic diseases classified elsewhere; I49.01 Ventricular fibrillation; L84 Corns and callosities; E11.42 Type 2 diabetes mellitus with diabetic polyneuropathy; E11.610 Type 2 diabetes mellitus with diabetic neuropathic arthropathy; E11.22 Type 2 diabetes mellitus with diabetic chronic kidney disease; I12.9 Hypertensive chronic kidney disease with stage 1 through stage 4 chronic kidney disease, or unspecified chronic kidney disease; N18.9 Chronic kidney disease, unspecified; E43 Unspecified severe protein-calorie malnutrition; Z68.20 Body mass index [BMI] 20.0-20.9, adult; Z85.828 Personal history of other malignant neoplasm of skin; Z95.5 Presence of coronary angioplasty implant and graft; Z90.49 Acquired absence of other specified parts of digestive tract; Z89.519 Acquired absence of unspecified leg below knee; Z86.73 Personal history of transient ischemic attack (TIA), and cerebral infarction without residual deficits; Z85.048 Personal history of other malignant neoplasm of rectum, rectosigmoid junction, and anus; Z86.14 Personal history of Methicillin resistant Staphylococcus aureus infection; Z79.01 Long term (current) use of anticoagulants; Z79.02 Long term (current) use of antithrombotics/antiplatelets; Z79.82 Long term (current) use of aspirin; Z79.899 Other long term (current) drug therapy; Z79.4 Long term (current) use of insulin; Z89.412 Acquired absence of left great toe; Z89.422 Acquired absence of other left toe(s); Z93.3 Colostomy status; X58.XXXD Exposure to other specified factors, subsequent encounter | CPT/HCPCS: 97597; 97598 ==

== ENCOUNTER → 2020-07-13 | Outpatient (CLI) | payer OTHER, MEDICARE | END | disposition home or self-care (01) | LOC: WOUND 08:36 | PROVIDERS: ATTEND Internal Medicine | DX: E11.621 Type 2 diabetes mellitus with foot ulcer (principal); L97.421 Non-pressure chronic ulcer of left heel and midfoot limited to breakdown of skin; L97.411 Non-pressure chronic ulcer of right heel and midfoot limited to breakdown of skin; E11.622 Type 2 diabetes mellitus with other skin ulcer; L89.150 Pressure ulcer of sacral region, unstageable; L98.491 Non-pressure chronic ulcer of skin of other sites limited to breakdown of skin; S91.105D Unspecified open wound of left lesser toe(s) without damage to nail, subsequent encounter; C18.9 Malignant neoplasm of colon, unspecified; E11.69 Type 2 diabetes mellitus with other specified complication; M86.172 Other acute osteomyelitis, left ankle and foot; E11.10 Type 2 diabetes mellitus with ketoacidosis without coma; E11.21 Type 2 diabetes mellitus with diabetic nephropathy; E11.51 Type 2 diabetes mellitus with diabetic peripheral angiopathy without gangrene; E78.5 Hyperlipidemia, unspecified; I25.10 Atherosclerotic heart disease of native coronary artery without angina pectoris; D63.8 Anemia in other chronic diseases classified elsewhere; I49.01 Ventricular fibrillation; L84 Corns and callosities; E11.42 Type 2 diabetes mellitus with diabetic polyneuropathy; E11.610 Type 2 diabetes mellitus with diabetic neuropathic arthropathy; E11.22 Type 2 diabetes mellitus with diabetic chronic kidney disease; I12.9 Hypertensive chronic kidney disease with stage 1 through stage 4 chronic kidney disease, or unspecified chronic kidney disease; N18.9 Chronic kidney disease, unspecified; E43 Unspecified severe protein-calorie malnutrition; Z68.20 Body mass index [BMI] 20.0-20.9, adult; Z85.828 Personal history of other malignant neoplasm of skin; Z95.5 Presence of coronary angioplasty implant and graft; Z90.49 Acquired absence of other specified parts of digestive tract; Z89.519 Acquired absence of unspecified leg below knee; Z86.73 Personal history of transient ischemic attack (TIA), and cerebral infarction without residual deficits; Z85.048 Personal history of other malignant neoplasm of rectum, rectosigmoid junction, and anus; Z86.14 Personal history of Methicillin resistant Staphylococcus aureus infection; Z79.01 Long term (current) use of anticoagulants; Z79.02 Long term (current) use of antithrombotics/antiplatelets; Z79.82 Long term (current) use of aspirin; Z79.899 Other long term (current) drug therapy; Z79.4 Long term (current) use of insulin; Z79.891 Long term (current) use of opiate analgesic; Z89.412 Acquired absence of left great toe; Z89.422 Acquired absence of other left toe(s); Z93.3 Colostomy status; X58.XXXD Exposure to other specified factors, subsequent encounter | CPT/HCPCS: 97597; 97598 ==

== ENCOUNTER 2020-07-20 08:25 | Outpatient (CLI) | payer OTHER, MEDICARE | END 2020-07-20 23:59 | disposition home or self-care (01) | LOC: WOUND 08:25 | PROVIDERS: ATTEND Internal Medicine | DX: E11.621 Type 2 diabetes mellitus with foot ulcer (principal); L97.421 Non-pressure chronic ulcer of left heel and midfoot limited to breakdown of skin; L97.411 Non-pressure chronic ulcer of right heel and midfoot limited to breakdown of skin; E11.622 Type 2 diabetes mellitus with other skin ulcer; L89.150 Pressure ulcer of sacral region, unstageable; L98.491 Non-pressure chronic ulcer of skin of other sites limited to breakdown of skin; S91.105D Unspecified open wound of left lesser toe(s) without damage to nail, subsequent encounter; C18.9 Malignant neoplasm of colon, unspecified; E11.69 Type 2 diabetes mellitus with other specified complication; M86.172 Other acute osteomyelitis, left ankle and foot; E11.10 Type 2 diabetes mellitus with ketoacidosis without coma; E11.21 Type 2 diabetes mellitus with diabetic nephropathy; E11.51 Type 2 diabetes mellitus with diabetic peripheral angiopathy without gangrene; E78.5 Hyperlipidemia, unspecified; I25.10 Atherosclerotic heart disease of native coronary artery without angina pectoris; D63.8 Anemia in other chronic diseases classified elsewhere; I49.01 Ventricular fibrillation; L84 Corns and callosities; E11.42 Type 2 diabetes mellitus with diabetic polyneuropathy; E11.610 Type 2 diabetes mellitus with diabetic neuropathic arthropathy; E11.22 Type 2 diabetes mellitus with diabetic chronic kidney disease; I12.9 Hypertensive chronic kidney disease with stage 1 through stage 4 chronic kidney disease, or unspecified chronic kidney disease; N18.9 Chronic kidney disease, unspecified; E43 Unspecified severe protein-calorie malnutrition; Z68.20 Body mass index [BMI] 20.0-20.9, adult; Z85.828 Personal history of other malignant neoplasm of skin; Z95.5 Presence of coronary angioplasty implant and graft; Z90.49 Acquired absence of other specified parts of digestive tract; Z89.519 Acquired absence of unspecified leg below knee; Z86.73 Personal history of transient ischemic attack (TIA), and cerebral infarction without residual deficits; Z85.048 Personal history of other malignant neoplasm of rectum, rectosigmoid junction, and anus; Z86.14 Personal history of Methicillin resistant Staphylococcus aureus infection; Z79.01 Long term (current) use of anticoagulants; Z79.02 Long term (current) use of antithrombotics/antiplatelets; Z79.82 Long term (current) use of aspirin; Z79.899 Other long term (current) drug therapy; Z79.4 Long term (current) use of insulin; Z79.891 Long term (current) use of opiate analgesic; Z89.412 Acquired absence of left great toe; Z89.422 Acquired absence of other left toe(s); Z93.3 Colostomy status; X58.XXXD Exposure to other specified factors, subsequent encounter | CPT/HCPCS: 97597; 97598 ==

== ENCOUNTER → 2020-08-03 | Outpatient (CLI) | payer OTHER, MEDICARE | END | disposition home or self-care (01) | LOC: WOUND 08:27 | PROVIDERS: ATTEND Internal Medicine | DX: E11.621 Type 2 diabetes mellitus with foot ulcer (principal); L97.421 Non-pressure chronic ulcer of left heel and midfoot limited to breakdown of skin; L97.411 Non-pressure chronic ulcer of right heel and midfoot limited to breakdown of skin; E11.622 Type 2 diabetes mellitus with other skin ulcer; L89.150 Pressure ulcer of sacral region, unstageable; L98.491 Non-pressure chronic ulcer of skin of other sites limited to breakdown of skin; S91.105D Unspecified open wound of left lesser toe(s) without damage to nail, subsequent encounter; C18.9 Malignant neoplasm of colon, unspecified; E11.69 Type 2 diabetes mellitus with other specified complication; M86.172 Other acute osteomyelitis, left ankle and foot; E11.10 Type 2 diabetes mellitus with ketoacidosis without coma; E11.21 Type 2 diabetes mellitus with diabetic nephropathy; E11.51 Type 2 diabetes mellitus with diabetic peripheral angiopathy without gangrene; I25.10 Atherosclerotic heart disease of native coronary artery without angina pectoris; D63.8 Anemia in other chronic diseases classified elsewhere; I49.01 Ventricular fibrillation; L84 Corns and callosities; E11.42 Type 2 diabetes mellitus with diabetic polyneuropathy; E11.610 Type 2 diabetes mellitus with diabetic neuropathic arthropathy; E11.22 Type 2 diabetes mellitus with diabetic chronic kidney disease; I12.9 Hypertensive chronic kidney disease with stage 1 through stage 4 chronic kidney disease, or unspecified chronic kidney disease; N18.9 Chronic kidney disease, unspecified; E78.2 Mixed hyperlipidemia; E43 Unspecified severe protein-calorie malnutrition; Z68.20 Body mass index [BMI] 20.0-20.9, adult; Z85.828 Personal history of other malignant neoplasm of skin; Z95.5 Presence of coronary angioplasty implant and graft; Z90.49 Acquired absence of other specified parts of digestive tract; Z89.519 Acquired absence of unspecified leg below knee; Z86.73 Personal history of transient ischemic attack (TIA), and cerebral infarction without residual deficits; Z85.048 Personal history of other malignant neoplasm of rectum, rectosigmoid junction, and anus; Z86.14 Personal history of Methicillin resistant Staphylococcus aureus infection; Z79.01 Long term (current) use of anticoagulants; Z79.02 Long term (current) use of antithrombotics/antiplatelets; Z79.82 Long term (current) use of aspirin; Z79.899 Other long term (current) drug therapy; Z79.4 Long term (current) use of insulin; Z79.891 Long term (current) use of opiate analgesic; Z89.412 Acquired absence of left great toe; Z89.422 Acquired absence of other left toe(s); Z93.3 Colostomy status; X58.XXXD Exposure to other specified factors, subsequent encounter | CPT/HCPCS: 99215 ==

== ENCOUNTER → 2020-09-07 | Outpatient (CLI) | payer OTHER, MEDICARE | END | disposition home or self-care (01) | LOC: WOUND 08:43 | PROVIDERS: ATTEND Internal Medicine | DX: E11.621 Type 2 diabetes mellitus with foot ulcer (principal); L97.421 Non-pressure chronic ulcer of left heel and midfoot limited to breakdown of skin; L97.522 Non-pressure chronic ulcer of other part of left foot with fat layer exposed; L97.411 Non-pressure chronic ulcer of right heel and midfoot limited to breakdown of skin; E11.622 Type 2 diabetes mellitus with other skin ulcer; L89.150 Pressure ulcer of sacral region, unstageable; L98.491 Non-pressure chronic ulcer of skin of other sites limited to breakdown of skin; S91.105D Unspecified open wound of left lesser toe(s) without damage to nail, subsequent encounter; C18.9 Malignant neoplasm of colon, unspecified; E11.69 Type 2 diabetes mellitus with other specified complication; M86.172 Other acute osteomyelitis, left ankle and foot; E11.10 Type 2 diabetes mellitus with ketoacidosis without coma; E11.21 Type 2 diabetes mellitus with diabetic nephropathy; E11.51 Type 2 diabetes mellitus with diabetic peripheral angiopathy without gangrene; I25.10 Atherosclerotic heart disease of native coronary artery without angina pectoris; D63.8 Anemia in other chronic diseases classified elsewhere; I49.01 Ventricular fibrillation; L84 Corns and callosities; E11.42 Type 2 diabetes mellitus with diabetic polyneuropathy; E11.610 Type 2 diabetes mellitus with diabetic neuropathic arthropathy; E11.22 Type 2 diabetes mellitus with diabetic chronic kidney disease; I12.9 Hypertensive chronic kidney disease with stage 1 through stage 4 chronic kidney disease, or unspecified chronic kidney disease; N18.9 Chronic kidney disease, unspecified; E78.2 Mixed hyperlipidemia; E43 Unspecified severe protein-calorie malnutrition; Z68.20 Body mass index [BMI] 20.0-20.9, adult; Z85.828 Personal history of other malignant neoplasm of skin; Z95.5 Presence of coronary angioplasty implant and graft; Z90.49 Acquired absence of other specified parts of digestive tract; Z89.519 Acquired absence of unspecified leg below knee; Z86.73 Personal history of transient ischemic attack (TIA), and cerebral infarction without residual deficits; Z85.048 Personal history of other malignant neoplasm of rectum, rectosigmoid junction, and anus; Z86.14 Personal history of Methicillin resistant Staphylococcus aureus infection; Z79.01 Long term (current) use of anticoagulants; Z79.02 Long term (current) use of antithrombotics/antiplatelets; Z79.82 Long term (current) use of aspirin; Z79.899 Other long term (current) drug therapy; Z79.4 Long term (current) use of insulin; Z79.891 Long term (current) use of opiate analgesic; Z89.412 Acquired absence of left great toe; Z89.422 Acquired absence of other left toe(s); Z93.3 Colostomy status; X58.XXXD Exposure to other specified factors, subsequent encounter | CPT/HCPCS: 97597; 97598 ==

== ENCOUNTER → 2020-09-21 | Outpatient (CLI) | payer OTHER, MEDICARE ==
[~2020-09-21] MED LIST changes: -MICO14CR TP; +MICO14CR3 TP
== END | disposition home or self-care (01) ==
LOC: WOUND 08:31
PROVIDERS: ATTEND Internal Medicine
DX: E11.621 Type 2 diabetes mellitus with foot ulcer (principal); L97.421 Non-pressure chronic ulcer of left heel and midfoot limited to breakdown of skin; L97.522 Non-pressure chronic ulcer of other part of left foot with fat layer exposed; L97.411 Non-pressure chronic ulcer of right heel and midfoot limited to breakdown of skin; E11.622 Type 2 diabetes mellitus with other skin ulcer; L89.150 Pressure ulcer of sacral region, unstageable; L98.491 Non-pressure chronic ulcer of skin of other sites limited to breakdown of skin; S91.105D Unspecified open wound of left lesser toe(s) without damage to nail, subsequent encounter; C18.9 Malignant neoplasm of colon, unspecified; E11.69 Type 2 diabetes mellitus with other specified complication; M86.172 Other acute osteomyelitis, left ankle and foot; E11.10 Type 2 diabetes mellitus with ketoacidosis without coma; E11.21 Type 2 diabetes mellitus with diabetic nephropathy; E11.51 Type 2 diabetes mellitus with diabetic peripheral angiopathy without gangrene; I25.10 Atherosclerotic heart disease of native coronary artery without angina pectoris; D63.8 Anemia in other chronic diseases classified elsewhere; I49.01 Ventricular fibrillation; L84 Corns and callosities; E11.42 Type 2 diabetes mellitus with diabetic polyneuropathy; E11.610 Type 2 diabetes mellitus with diabetic neuropathic arthropathy; E11.22 Type 2 diabetes mellitus with diabetic chronic kidney disease; I12.9 Hypertensive chronic kidney disease with stage 1 through stage 4 chronic kidney disease, or unspecified chronic kidney disease; N18.9 Chronic kidney disease, unspecified; E78.2 Mixed hyperlipidemia; E43 Unspecified severe protein-calorie malnutrition; Z68.20 Body mass index [BMI] 20.0-20.9, adult; Z85.828 Personal history of other malignant neoplasm of skin; Z95.5 Presence of coronary angioplasty implant and graft; Z90.49 Acquired absence of other specified parts of digestive tract; Z89.519 Acquired absence of unspecified leg below knee; Z86.73 Personal history of transient ischemic attack (TIA), and cerebral infarction without residual deficits; Z85.048 Personal history of other malignant neoplasm of rectum, rectosigmoid junction, and anus; Z86.14 Personal history of Methicillin resistant Staphylococcus aureus infection; Z79.01 Long term (current) use of anticoagulants; Z79.02 Long term (current) use of antithrombotics/antiplatelets; Z79.82 Long term (current) use of aspirin; Z79.899 Other long term (current) drug therapy; Z79.4 Long term (current) use of insulin; Z79.891 Long term (current) use of opiate analgesic; Z89.412 Acquired absence of left great toe; Z89.422 Acquired absence of other left toe(s); Z93.3 Colostomy status; X58.XXXD Exposure to other specified factors, subsequent encounter
CPT/HCPCS: 11042

== ENCOUNTER 2020-10-05 08:24 | Outpatient (CLI) | payer OTHER, MEDICARE | END 2020-10-05 23:59 | disposition home or self-care (01) | LOC: WOUND 08:24 | PROVIDERS: ATTEND Surgery | DX: E11.621 Type 2 diabetes mellitus with foot ulcer (principal); L97.422 Non-pressure chronic ulcer of left heel and midfoot with fat layer exposed; L97.412 Non-pressure chronic ulcer of right heel and midfoot with fat layer exposed; E11.622 Type 2 diabetes mellitus with other skin ulcer; L89.150 Pressure ulcer of sacral region, unstageable; L98.491 Non-pressure chronic ulcer of skin of other sites limited to breakdown of skin; S91.105D Unspecified open wound of left lesser toe(s) without damage to nail, subsequent encounter; C18.9 Malignant neoplasm of colon, unspecified; E11.69 Type 2 diabetes mellitus with other specified complication; M86.172 Other acute osteomyelitis, left ankle and foot; E11.10 Type 2 diabetes mellitus with ketoacidosis without coma; E11.21 Type 2 diabetes mellitus with diabetic nephropathy; E11.51 Type 2 diabetes mellitus with diabetic peripheral angiopathy without gangrene; I25.10 Atherosclerotic heart disease of native coronary artery without angina pectoris; D63.8 Anemia in other chronic diseases classified elsewhere; I49.01 Ventricular fibrillation; L84 Corns and callosities; E11.42 Type 2 diabetes mellitus with diabetic polyneuropathy; E11.610 Type 2 diabetes mellitus with diabetic neuropathic arthropathy; E11.22 Type 2 diabetes mellitus with diabetic chronic kidney disease; I12.9 Hypertensive chronic kidney disease with stage 1 through stage 4 chronic kidney disease, or unspecified chronic kidney disease; N18.9 Chronic kidney disease, unspecified; E78.2 Mixed hyperlipidemia; E43 Unspecified severe protein-calorie malnutrition; Z68.20 Body mass index [BMI] 20.0-20.9, adult; Z85.828 Personal history of other malignant neoplasm of skin; Z95.5 Presence of coronary angioplasty implant and graft; Z90.49 Acquired absence of other specified parts of digestive tract; Z89.519 Acquired absence of unspecified leg below knee; Z86.73 Personal history of transient ischemic attack (TIA), and cerebral infarction without residual deficits; Z85.048 Personal history of other malignant neoplasm of rectum, rectosigmoid junction, and anus; Z86.14 Personal history of Methicillin resistant Staphylococcus aureus infection; Z79.01 Long term (current) use of anticoagulants; Z79.02 Long term (current) use of antithrombotics/antiplatelets; Z79.82 Long term (current) use of aspirin; Z79.899 Other long term (current) drug therapy; Z79.4 Long term (current) use of insulin; Z79.891 Long term (current) use of opiate analgesic; Z89.422 Acquired absence of other left toe(s); Z89.412 Acquired absence of left great toe; Z93.3 Colostomy status; X58.XXXD Exposure to other specified factors, subsequent encounter | CPT/HCPCS: 11042 ==

== ENCOUNTER 2020-10-19 08:35 | Outpatient (CLI) | payer OTHER, MEDICARE | END 2020-10-19 23:59 | disposition home or self-care (01) | LOC: WOUND 08:35 | PROVIDERS: ATTEND Internal Medicine | DX: E11.621 Type 2 diabetes mellitus with foot ulcer (principal); L97.422 Non-pressure chronic ulcer of left heel and midfoot with fat layer exposed; L97.412 Non-pressure chronic ulcer of right heel and midfoot with fat layer exposed; E11.622 Type 2 diabetes mellitus with other skin ulcer; L89.150 Pressure ulcer of sacral region, unstageable; L98.491 Non-pressure chronic ulcer of skin of other sites limited to breakdown of skin; S91.105D Unspecified open wound of left lesser toe(s) without damage to nail, subsequent encounter; C18.9 Malignant neoplasm of colon, unspecified; E11.69 Type 2 diabetes mellitus with other specified complication; M86.172 Other acute osteomyelitis, left ankle and foot; E11.10 Type 2 diabetes mellitus with ketoacidosis without coma; E11.21 Type 2 diabetes mellitus with diabetic nephropathy; E11.51 Type 2 diabetes mellitus with diabetic peripheral angiopathy without gangrene; I25.10 Atherosclerotic heart disease of native coronary artery without angina pectoris; D63.8 Anemia in other chronic diseases classified elsewhere; I49.01 Ventricular fibrillation; L84 Corns and callosities; E11.42 Type 2 diabetes mellitus with diabetic polyneuropathy; E11.610 Type 2 diabetes mellitus with diabetic neuropathic arthropathy; E11.22 Type 2 diabetes mellitus with diabetic chronic kidney disease; I12.9 Hypertensive chronic kidney disease with stage 1 through stage 4 chronic kidney disease, or unspecified chronic kidney disease; N18.9 Chronic kidney disease, unspecified; E78.2 Mixed hyperlipidemia; E43 Unspecified severe protein-calorie malnutrition; Z68.20 Body mass index [BMI] 20.0-20.9, adult; Z85.828 Personal history of other malignant neoplasm of skin; Z95.5 Presence of coronary angioplasty implant and graft; Z90.49 Acquired absence of other specified parts of digestive tract; Z89.519 Acquired absence of unspecified leg below knee; Z86.73 Personal history of transient ischemic attack (TIA), and cerebral infarction without residual deficits; Z85.048 Personal history of other malignant neoplasm of rectum, rectosigmoid junction, and anus; Z86.14 Personal history of Methicillin resistant Staphylococcus aureus infection; Z79.01 Long term (current) use of anticoagulants; Z79.02 Long term (current) use of antithrombotics/antiplatelets; Z79.82 Long term (current) use of aspirin; Z79.899 Other long term (current) drug therapy; Z79.4 Long term (current) use of insulin; Z79.891 Long term (current) use of opiate analgesic; Z89.412 Acquired absence of left great toe; Z93.3 Colostomy status; X58.XXXD Exposure to other specified factors, subsequent encounter | CPT/HCPCS: 97597 ==

== ENCOUNTER → 2020-11-02 | Outpatient (CLI) | payer OTHER, MEDICARE | END | disposition home or self-care (01) | LOC: WOUND 08:34 | PROVIDERS: ATTEND Internal Medicine | DX: E11.621 Type 2 diabetes mellitus with foot ulcer (principal); L97.421 Non-pressure chronic ulcer of left heel and midfoot limited to breakdown of skin; L97.411 Non-pressure chronic ulcer of right heel and midfoot limited to breakdown of skin; E11.622 Type 2 diabetes mellitus with other skin ulcer; L89.150 Pressure ulcer of sacral region, unstageable; L98.491 Non-pressure chronic ulcer of skin of other sites limited to breakdown of skin; S91.105D Unspecified open wound of left lesser toe(s) without damage to nail, subsequent encounter; C18.9 Malignant neoplasm of colon, unspecified; E11.69 Type 2 diabetes mellitus with other specified complication; M86.172 Other acute osteomyelitis, left ankle and foot; E11.10 Type 2 diabetes mellitus with ketoacidosis without coma; E11.21 Type 2 diabetes mellitus with diabetic nephropathy; E11.51 Type 2 diabetes mellitus with diabetic peripheral angiopathy without gangrene; I25.10 Atherosclerotic heart disease of native coronary artery without angina pectoris; D63.8 Anemia in other chronic diseases classified elsewhere; I49.01 Ventricular fibrillation; L84 Corns and callosities; E11.42 Type 2 diabetes mellitus with diabetic polyneuropathy; E11.610 Type 2 diabetes mellitus with diabetic neuropathic arthropathy; E11.22 Type 2 diabetes mellitus with diabetic chronic kidney disease; I12.9 Hypertensive chronic kidney disease with stage 1 through stage 4 chronic kidney disease, or unspecified chronic kidney disease; N18.9 Chronic kidney disease, unspecified; E78.2 Mixed hyperlipidemia; E43 Unspecified severe protein-calorie malnutrition; Z68.20 Body mass index [BMI] 20.0-20.9, adult; Z85.828 Personal history of other malignant neoplasm of skin; Z95.5 Presence of coronary angioplasty implant and graft; Z90.49 Acquired absence of other specified parts of digestive tract; Z89.519 Acquired absence of unspecified leg below knee; Z86.73 Personal history of transient ischemic attack (TIA), and cerebral infarction without residual deficits; Z85.048 Personal history of other malignant neoplasm of rectum, rectosigmoid junction, and anus; Z86.14 Personal history of Methicillin resistant Staphylococcus aureus infection; Z79.01 Long term (current) use of anticoagulants; Z79.02 Long term (current) use of antithrombotics/antiplatelets; Z79.82 Long term (current) use of aspirin; Z79.899 Other long term (current) drug therapy; Z79.4 Long term (current) use of insulin; Z79.891 Long term (current) use of opiate analgesic; Z89.412 Acquired absence of left great toe; Z93.3 Colostomy status; X58.XXXD Exposure to other specified factors, subsequent encounter | CPT/HCPCS: 97597 ==

== ENCOUNTER → 2020-11-16 | Outpatient (CLI) | payer OTHER, MEDICARE | END | disposition home or self-care (01) | LOC: WOUND 08:25 | PROVIDERS: ATTEND Internal Medicine | DX: E11.621 Type 2 diabetes mellitus with foot ulcer (principal); L97.421 Non-pressure chronic ulcer of left heel and midfoot limited to breakdown of skin; L97.411 Non-pressure chronic ulcer of right heel and midfoot limited to breakdown of skin; L97.522 Non-pressure chronic ulcer of other part of left foot with fat layer exposed; E11.622 Type 2 diabetes mellitus with other skin ulcer; L89.150 Pressure ulcer of sacral region, unstageable; L98.491 Non-pressure chronic ulcer of skin of other sites limited to breakdown of skin; S91.105D Unspecified open wound of left lesser toe(s) without damage to nail, subsequent encounter; C18.9 Malignant neoplasm of colon, unspecified; E11.69 Type 2 diabetes mellitus with other specified complication; M86.172 Other acute osteomyelitis, left ankle and foot; E11.10 Type 2 diabetes mellitus with ketoacidosis without coma; E11.21 Type 2 diabetes mellitus with diabetic nephropathy; E11.51 Type 2 diabetes mellitus with diabetic peripheral angiopathy without gangrene; I25.10 Atherosclerotic heart disease of native coronary artery without angina pectoris; D63.8 Anemia in other chronic diseases classified elsewhere; I49.01 Ventricular fibrillation; L84 Corns and callosities; E11.42 Type 2 diabetes mellitus with diabetic polyneuropathy; E78.2 Mixed hyperlipidemia; E11.610 Type 2 diabetes mellitus with diabetic neuropathic arthropathy; E11.22 Type 2 diabetes mellitus with diabetic chronic kidney disease; I12.9 Hypertensive chronic kidney disease with stage 1 through stage 4 chronic kidney disease, or unspecified chronic kidney disease; N18.9 Chronic kidney disease, unspecified; E43 Unspecified severe protein-calorie malnutrition; Z68.20 Body mass index [BMI] 20.0-20.9, adult; Z85.828 Personal history of other malignant neoplasm of skin; Z95.5 Presence of coronary angioplasty implant and graft; Z90.49 Acquired absence of other specified parts of digestive tract; Z89.519 Acquired absence of unspecified leg below knee; Z86.73 Personal history of transient ischemic attack (TIA), and cerebral infarction without residual deficits; Z85.048 Personal history of other malignant neoplasm of rectum, rectosigmoid junction, and anus; Z86.14 Personal history of Methicillin resistant Staphylococcus aureus infection; Z79.01 Long term (current) use of anticoagulants; Z79.02 Long term (current) use of antithrombotics/antiplatelets; Z79.82 Long term (current) use of aspirin; Z79.899 Other long term (current) drug therapy; Z79.4 Long term (current) use of insulin; Z79.891 Long term (current) use of opiate analgesic; Z89.412 Acquired absence of left great toe; Z89.422 Acquired absence of other left toe(s); Z93.3 Colostomy status; X58.XXXD Exposure to other specified factors, subsequent encounter | CPT/HCPCS: 15275; Q4133 ==

== ENCOUNTER 2020-11-30 08:32 | Outpatient (CLI) | payer OTHER, MEDICARE ==
[~2020-11-30 08:32] MED LIST changes: +POTA-143 PO; -POTA20TA6 PO
== END 2020-11-30 23:59 | disposition home or self-care (01) ==
LOC: WOUND 08:32
PROVIDERS: ATTEND Internal Medicine
DX: E11.621 Type 2 diabetes mellitus with foot ulcer (principal); L97.421 Non-pressure chronic ulcer of left heel and midfoot limited to breakdown of skin; L97.411 Non-pressure chronic ulcer of right heel and midfoot limited to breakdown of skin; E11.622 Type 2 diabetes mellitus with other skin ulcer; L89.150 Pressure ulcer of sacral region, unstageable; L98.491 Non-pressure chronic ulcer of skin of other sites limited to breakdown of skin; S91.105D Unspecified open wound of left lesser toe(s) without damage to nail, subsequent encounter; C18.9 Malignant neoplasm of colon, unspecified; E11.69 Type 2 diabetes mellitus with other specified complication; M86.172 Other acute osteomyelitis, left ankle and foot; E11.10 Type 2 diabetes mellitus with ketoacidosis without coma; E11.21 Type 2 diabetes mellitus with diabetic nephropathy; E11.51 Type 2 diabetes mellitus with diabetic peripheral angiopathy without gangrene; I25.10 Atherosclerotic heart disease of native coronary artery without angina pectoris; D63.8 Anemia in other chronic diseases classified elsewhere; I49.01 Ventricular fibrillation; L84 Corns and callosities; E11.42 Type 2 diabetes mellitus with diabetic polyneuropathy; E78.2 Mixed hyperlipidemia; E11.610 Type 2 diabetes mellitus with diabetic neuropathic arthropathy; E11.22 Type 2 diabetes mellitus with diabetic chronic kidney disease; I12.9 Hypertensive chronic kidney disease with stage 1 through stage 4 chronic kidney disease, or unspecified chronic kidney disease; N18.9 Chronic kidney disease, unspecified; M47.816 Spondylosis without myelopathy or radiculopathy, lumbar region; E43 Unspecified severe protein-calorie malnutrition; Z68.20 Body mass index [BMI] 20.0-20.9, adult; Z85.828 Personal history of other malignant neoplasm of skin; Z95.5 Presence of coronary angioplasty implant and graft; Z90.49 Acquired absence of other specified parts of digestive tract; Z89.519 Acquired absence of unspecified leg below knee; Z86.73 Personal history of transient ischemic attack (TIA), and cerebral infarction without residual deficits; Z85.048 Personal history of other malignant neoplasm of rectum, rectosigmoid junction, and anus; Z86.14 Personal history of Methicillin resistant Staphylococcus aureus infection; Z79.01 Long term (current) use of anticoagulants; Z79.02 Long term (current) use of antithrombotics/antiplatelets; Z79.82 Long term (current) use of aspirin; Z79.899 Other long term (current) drug therapy; Z79.4 Long term (current) use of insulin; Z79.891 Long term (current) use of opiate analgesic; Z89.412 Acquired absence of left great toe; Z89.422 Acquired absence of other left toe(s); Z93.3 Colostomy status; X58.XXXD Exposure to other specified factors, subsequent encounter
CPT/HCPCS: 15275; Q4133

== ENCOUNTER 2020-12-06 10:31 | Outpatient (CLI) | payer OTHER, MEDICARE ==
[2020-12-06] MEDS ORDERED: OMNIPAQUE 350 MG/ML, 100ML BOTTLE ONE (11:45)
== END 2020-12-06 23:59 | disposition home or self-care (01) ==
LOC: RAD 10:31
PROVIDERS: ATTEND Internal Medicine Hematology & Oncology
DX: C20 Malignant neoplasm of rectum (principal); K40.90 Unilateral inguinal hernia, without obstruction or gangrene, not specified as recurrent; M51.36 Other intervertebral disc degeneration, lumbar region; K44.9 Diaphragmatic hernia without obstruction or gangrene; M47.816 Spondylosis without myelopathy or radiculopathy, lumbar region; I70.0 Atherosclerosis of aorta; M25.78 Osteophyte, vertebrae
CPT/HCPCS: 71260; 74177; Q9967

== ENCOUNTER 2020-12-14 08:46 | Outpatient (CLI) | payer OTHER, MEDICARE ==
[~2020-12-14 08:46] MED LIST changes: -POTA-143 PO; +POTA20TA6 PO
== END 2020-12-14 23:59 | disposition home or self-care (01) ==
LOC: WOUND 08:46
PROVIDERS: ATTEND Internal Medicine
DX: E11.621 Type 2 diabetes mellitus with foot ulcer (principal); L97.421 Non-pressure chronic ulcer of left heel and midfoot limited to breakdown of skin; L97.411 Non-pressure chronic ulcer of right heel and midfoot limited to breakdown of skin; L97.522 Non-pressure chronic ulcer of other part of left foot with fat layer exposed; E11.622 Type 2 diabetes mellitus with other skin ulcer; L89.150 Pressure ulcer of sacral region, unstageable; L98.491 Non-pressure chronic ulcer of skin of other sites limited to breakdown of skin; S91.105D Unspecified open wound of left lesser toe(s) without damage to nail, subsequent encounter; C18.9 Malignant neoplasm of colon, unspecified; E11.69 Type 2 diabetes mellitus with other specified complication; M86.172 Other acute osteomyelitis, left ankle and foot; E11.10 Type 2 diabetes mellitus with ketoacidosis without coma; E11.21 Type 2 diabetes mellitus with diabetic nephropathy; E11.51 Type 2 diabetes mellitus with diabetic peripheral angiopathy without gangrene; I25.10 Atherosclerotic heart disease of native coronary artery without angina pectoris; D63.8 Anemia in other chronic diseases classified elsewhere; I49.01 Ventricular fibrillation; L84 Corns and callosities; E11.42 Type 2 diabetes mellitus with diabetic polyneuropathy; E78.2 Mixed hyperlipidemia; E11.610 Type 2 diabetes mellitus with diabetic neuropathic arthropathy; E11.22 Type 2 diabetes mellitus with diabetic chronic kidney disease; I12.9 Hypertensive chronic kidney disease with stage 1 through stage 4 chronic kidney disease, or unspecified chronic kidney disease; N18.9 Chronic kidney disease, unspecified; E43 Unspecified severe protein-calorie malnutrition; Z68.20 Body mass index [BMI] 20.0-20.9, adult; Z85.828 Personal history of other malignant neoplasm of skin; Z95.5 Presence of coronary angioplasty implant and graft; Z90.49 Acquired absence of other specified parts of digestive tract; Z89.519 Acquired absence of unspecified leg below knee; Z86.73 Personal history of transient ischemic attack (TIA), and cerebral infarction without residual deficits; Z85.048 Personal history of other malignant neoplasm of rectum, rectosigmoid junction, and anus; Z86.14 Personal history of Methicillin resistant Staphylococcus aureus infection; Z79.01 Long term (current) use of anticoagulants; Z79.02 Long term (current) use of antithrombotics/antiplatelets; Z79.82 Long term (current) use of aspirin; Z79.899 Other long term (current) drug therapy; Z79.4 Long term (current) use of insulin; Z79.891 Long term (current) use of opiate analgesic; Z89.412 Acquired absence of left great toe; Z89.422 Acquired absence of other left toe(s); Z93.3 Colostomy status; X58.XXXD Exposure to other specified factors, subsequent encounter
CPT/HCPCS: 15275; Q4133

== ENCOUNTER 2020-12-28 08:38 | Outpatient (CLI) | payer OTHER, MEDICARE ==
[~2020-12-28 08:38] MED LIST changes: +POTA-143 PO; -POTA20TA6 PO
== END 2020-12-28 23:59 | disposition home or self-care (01) ==
LOC: WOUND 08:38
PROVIDERS: ATTEND Internal Medicine
DX: E11.621 Type 2 diabetes mellitus with foot ulcer (principal); L97.421 Non-pressure chronic ulcer of left heel and midfoot limited to breakdown of skin; L97.411 Non-pressure chronic ulcer of right heel and midfoot limited to breakdown of skin; E11.622 Type 2 diabetes mellitus with other skin ulcer; L89.150 Pressure ulcer of sacral region, unstageable; L98.491 Non-pressure chronic ulcer of skin of other sites limited to breakdown of skin; S91.105D Unspecified open wound of left lesser toe(s) without damage to nail, subsequent encounter; C18.9 Malignant neoplasm of colon, unspecified; E11.69 Type 2 diabetes mellitus with other specified complication; M86.172 Other acute osteomyelitis, left ankle and foot; E11.10 Type 2 diabetes mellitus with ketoacidosis without coma; E11.21 Type 2 diabetes mellitus with diabetic nephropathy; E11.51 Type 2 diabetes mellitus with diabetic peripheral angiopathy without gangrene; I25.10 Atherosclerotic heart disease of native coronary artery without angina pectoris; D63.8 Anemia in other chronic diseases classified elsewhere; I49.01 Ventricular fibrillation; L84 Corns and callosities; E11.42 Type 2 diabetes mellitus with diabetic polyneuropathy; E78.2 Mixed hyperlipidemia; E11.610 Type 2 diabetes mellitus with diabetic neuropathic arthropathy; E11.22 Type 2 diabetes mellitus with diabetic chronic kidney disease; I12.9 Hypertensive chronic kidney disease with stage 1 through stage 4 chronic kidney disease, or unspecified chronic kidney disease; N18.9 Chronic kidney disease, unspecified; E43 Unspecified severe protein-calorie malnutrition; Z68.20 Body mass index [BMI] 20.0-20.9, adult; Z85.828 Personal history of other malignant neoplasm of skin; Z95.5 Presence of coronary angioplasty implant and graft; Z90.49 Acquired absence of other specified parts of digestive tract; Z89.519 Acquired absence of unspecified leg below knee; Z86.73 Personal history of transient ischemic attack (TIA), and cerebral infarction without residual deficits; Z85.048 Personal history of other malignant neoplasm of rectum, rectosigmoid junction, and anus; Z86.14 Personal history of Methicillin resistant Staphylococcus aureus infection; Z79.01 Long term (current) use of anticoagulants; Z79.02 Long term (current) use of antithrombotics/antiplatelets; Z79.82 Long term (current) use of aspirin; Z79.899 Other long term (current) drug therapy; Z79.4 Long term (current) use of insulin; Z79.891 Long term (current) use of opiate analgesic; Z89.412 Acquired absence of left great toe; Z89.422 Acquired absence of other left toe(s); Z93.3 Colostomy status; X58.XXXD Exposure to other specified factors, subsequent encounter
CPT/HCPCS: 15275; Q4133

== ENCOUNTER → 2021-01-11 | Outpatient (CLI) | payer OTHER, MEDICARE | END | disposition home or self-care (01) | LOC: WOUND 08:39 | PROVIDERS: ATTEND Internal Medicine | DX: E11.621 Type 2 diabetes mellitus with foot ulcer (principal); L97.421 Non-pressure chronic ulcer of left heel and midfoot limited to breakdown of skin; L97.411 Non-pressure chronic ulcer of right heel and midfoot limited to breakdown of skin; E11.622 Type 2 diabetes mellitus with other skin ulcer; L89.150 Pressure ulcer of sacral region, unstageable; L98.491 Non-pressure chronic ulcer of skin of other sites limited to breakdown of skin; S91.105D Unspecified open wound of left lesser toe(s) without damage to nail, subsequent encounter; C18.9 Malignant neoplasm of colon, unspecified; E11.69 Type 2 diabetes mellitus with other specified complication; M86.172 Other acute osteomyelitis, left ankle and foot; E11.10 Type 2 diabetes mellitus with ketoacidosis without coma; E11.21 Type 2 diabetes mellitus with diabetic nephropathy; E11.51 Type 2 diabetes mellitus with diabetic peripheral angiopathy without gangrene; I25.10 Atherosclerotic heart disease of native coronary artery without angina pectoris; D63.8 Anemia in other chronic diseases classified elsewhere; I49.01 Ventricular fibrillation; L84 Corns and callosities; E11.42 Type 2 diabetes mellitus with diabetic polyneuropathy; E78.2 Mixed hyperlipidemia; E11.610 Type 2 diabetes mellitus with diabetic neuropathic arthropathy; E11.22 Type 2 diabetes mellitus with diabetic chronic kidney disease; I12.9 Hypertensive chronic kidney disease with stage 1 through stage 4 chronic kidney disease, or unspecified chronic kidney disease; N18.9 Chronic kidney disease, unspecified; M47.816 Spondylosis without myelopathy or radiculopathy, lumbar region; E43 Unspecified severe protein-calorie malnutrition; Z68.20 Body mass index [BMI] 20.0-20.9, adult; Z85.828 Personal history of other malignant neoplasm of skin; Z95.5 Presence of coronary angioplasty implant and graft; Z90.49 Acquired absence of other specified parts of digestive tract; Z89.519 Acquired absence of unspecified leg below knee; Z86.73 Personal history of transient ischemic attack (TIA), and cerebral infarction without residual deficits; Z85.048 Personal history of other malignant neoplasm of rectum, rectosigmoid junction, and anus; Z86.14 Personal history of Methicillin resistant Staphylococcus aureus infection; Z79.01 Long term (current) use of anticoagulants; Z79.02 Long term (current) use of antithrombotics/antiplatelets; Z79.82 Long term (current) use of aspirin; Z79.899 Other long term (current) drug therapy; Z79.4 Long term (current) use of insulin; Z79.891 Long term (current) use of opiate analgesic; Z89.412 Acquired absence of left great toe; Z89.422 Acquired absence of other left toe(s); Z93.3 Colostomy status; X58.XXXD Exposure to other specified factors, subsequent encounter | CPT/HCPCS: 15275; Q4133 ==